=== PATIENT | male | born 1955 | race African-American/Black ===

== ENCOUNTER 2016-05-05 10:47 | Inpatient (IN) | payer OTHER ==
--- NOTE | 2016-05-05 10:56 | ER Document Report ---
ED Medical Screen (RME) - General Chief Complaint: Foot Pain Stated Complaint: FOOT PAIN Mode of Arrival: Wheelchair Information source: Patient Notes: Patient presents from the wound care center for possible amputation of his right great toe and possible fifth digit also. Patient is a diabetic, reports foot wound not etting any better. Denies pain. I have greeted and performed a rapid initial assessment of this patient. A comprehensive ED assessment and evaluation of the patient, analysis of test results and completion of the medical decision making process will be conducted by additional ED providers. TRAVEL OUTSIDE OF THE [place] IN LAST 30 DAYS: No - Related Data Allergies/Adverse Reactions: No Known Allergies Allergy (Verified 05/05/16 10:52) Past Medical History - Past Medical History Cardiac Medical History: Reports: Hx Congestive Heart Failure, Hx Coronary Artery Disease, Hx Hypercholesterolemia, Hx Hypertension Denies: Hx Heart Attack Pulmonary Medical History: Reports: Hx Asthma, Hx COPD, Hx Pneumonia - 2013, Hx Sleep Apnea Denies: Hx Bronchitis, Hx Tuberculosis Neurological Medical History: Denies: Hx Cerebrovascular Accident, Hx Seizures Endocrine Medical History: Reports: Hx Diabetes Mellitus Type 2 Renal/ Medical History: Reports: Hx End Stage Renal Disease, Hx Renal Insufficiency. Denies: Hx Hemodialysis GI Medical History: Reports: Hx Gastroesophageal Reflux Disease Musculoskeltal Medical History: Denies Hx Arthritis Skin Medical History: Reports Hx Cellulitis - LOWER EXTREMITY OSTEO LEFT FOOT Psychiatric Medical History: Denies: Hx Depression Past Surgical History: Reports: Hx Cardiac Catheterization - Cardiac catheterization few months ago showed mild CAD., Hx Orthopedic Surgery - Left big toe, knee, Hx Vascular Surgery - Left forearm AV fistula - Immunizations Hx Diphtheria, Pertussis, Tetanus Vaccination: Yes
[2016-05-05 11:23] LABS: HEMATOCRIT 32.7 % (37.9-51.0); HEMOGLOBIN 10.3 g/dL (13.5-17.0); HGB HCT DIFFERENCE -1.8; MEAN CORPUSCULAR HEMOGLOBIN 28.3 pg (27.0-33.4); MEAN CORPUSCULAR HGB CONC 31.5 g/dL (32.0-36.0); MEAN CORPUSCULAR VOLUME 90 fl (80-97); RED BLOOD COUNT 3.62 10^6/uL (4.35-5.55); RED CELL DISTRIBUTION WIDTH 16.4 % (11.5-14.0)
[2016-05-05 11:37] LABS: ALANINE AMINOTRANSFERASE 34 U/L (21-72); ALBUMIN 3.3 g/dL (3.5-5.0); ALKALINE PHOSPHATASE 97 U/L (38-126); ANION GAP 17 (5-19); ASPARTATE AMINO TRANSFERASE 39 U/L (17-59); BILIRUBIN,TOTAL 1.2 mg/dL (0.2-1.3); BLOOD UREA NITROGEN 52 mg/dL (7-20); CALCIUM 8.9 mg/dL (8.4-10.2); CARBON DIOXIDE 27 mmol/L (22-30); CHLORIDE 91 mmol/L (98-107); CREATININE RESULT 10.13 mg/dL (0.52-1.25); GLUCOSE 275 mg/dL (75-110); POTASSIUM 4.6 mmol/L (3.6-5.0); SODIUM 135.1 mmol/L (137-145); TOTAL PROTEIN 7.3 g/dL (6.3-8.2)
[2016-05-05 11:47] LABS: BAND NEUTROPHILS % (MANUAL) 1 % (3-5); BASOPHILS % (MANUAL) 0 % (0-2); EOSINOPHILS % (MANUAL) 0 % (0-6); LYMPHOCYTES % (MANUAL) 7 % (13-45); TOTAL CELLS COUNTED 100
[2016-05-05 11:49] LABS: ANISOCYTOSIS 1+; PLATELET CLUMPS PRESENT; TOXIC GRANULATION 1+; TOXIC VACUOLATION PRESENT
[2016-05-05 11:52] LABS: WHITE BLOOD COUNT 34.4 10^3/uL (4.0-10.5)
[2016-05-05] MEDS ORDERED: VANCOMYCIN HCL INJ 1000 MG VIAL IV ONE (12:14)
--- NOTE | 2016-05-05 13:22 | ER Document Report ---
ED Extremity Problem, Lower - General Chief Complaint: Foot Pain Stated Complaint: FOOT PAIN Time seen by provider: 11:15 Mode of Arrival: Wheelchair Information source: Patient TRAVEL OUTSIDE OF THE [place] IN LAST 30 DAYS: No - HPI Notes: Patient presents with report of right great toe pain and discomfort that he's had for the last month and a half with associated worsening discoloration and now an odor. The patient was seen at the wound clinic and sent over being told that he would need an amputation performed. The patient is alert he had a amputation performed on the left great toe in the past. Patient has been compliant with his dialysis. He states that for the last few days A been giving antibiotics during dialysis for the foot. The patient does question a low-grade fever. He is unaware of any recent trauma to the foot. Patient states at baseline he has very minimal sensation through all of his toes , and can feel nothing to the right distal toe itself. - Related Data Allergies/Adverse Reactions: No Known Allergies Allergy (Verified 05/05/16 10:52) Past Medical History - General Information source: Patient - Social History Smoking Status: Unknown if Ever Smoked Chew tobacco use (# tins/day): No Frequency of alcohol use: None Drug Abuse: None Family History: CAD, Hyperlipidemia, Hypertension Patient has suicidal ideation: No Patient has homicidal ideation: No - Past Medical History Cardiac Medical History: Reports: Hx Congestive Heart Failure, Hx Coronary Artery Disease, Hx Hypercholesterolemia, Hx Hypertension Denies: Hx Heart Attack Pulmonary Medical History: Reports: Hx Asthma, Hx COPD, Hx Pneumonia - 2014, Hx Sleep Apnea Denies: Hx Bronchitis, Hx Tuberculosis Neurological Medical History: Denies: Hx Cerebrovascular Accident, Hx Seizures Endocrine Medical History: Reports: Hx Diabetes Mellitus Type 2 Renal/ Medical History: Reports: Hx End Stage Renal Disease, Hx Renal Insufficiency. Denies: Hx Hemodialysis, Hx Peritoneal Dialysis GI Medical History: Reports: Hx Gastroesophageal Reflux Disease Musculoskeltal Medical History: Denies Hx Arthritis Skin Medical History: Reports Hx Cellulitis - LOWER EXTREMITY OSTEO LEFT FOOT Psychiatric Medical History: Denies: Hx Depression Past Surgical History: Reports: Hx Cardiac Catheterization - Cardiac catheterization few months ago showed mild CAD., Hx Orthopedic Surgery - Left big toe, knee, Hx Vascular Surgery - Left forearm AV fistula - Immunizations Hx Diphtheria, Pertussis, Tetanus Vaccination: Yes Hx Pneumococcal Vaccination: 01/19/12 Review of Systems - Review of Systems Notes: REVIEW OF SYSTEMS: CONSTITUTIONAL : Denies sweats. EENT: Denies eye, ear, throat, or mouth pain or symptoms. Denies nasal or sinus congestion or discharge. Denies throat, tongue, or mouth swelling or difficulty swallowing. CARDIOVASCULAR: Denies chest pain. Denies palpitations or racing or irregular heart beat. Denies ankle edema. RESPIRATORY: Denies cough, cold, or chest congestion. Denies shortness of breath, difficulty breathing, or wheezing. GASTROINTESTINAL: Denies abdominal pain or distention. Denies nausea, vomiting , or diarrhea. Denies blood in vomitus, stools, or per rectum. Denies black, tarry stools. Denies constipation. GENITOURINARY: Denies difficulty urinating, painful urination, burning, frequency, blood in urine, or discharge. MUSCULOSKELETAL: Denies back or neck pain or stiffness. SKIN: Right foot skin changes and erythema. HEMATOLOGIC : Denies easy bruising or bleeding. LYMPHATIC: Denies swollen, enlarged glands. NEUROLOGICAL: Denies confusion or altered mental status. Denies passing out or loss of consciousness. Denies dizziness or lightheadedness. Denies headache. Denies weakness or paralysis or loss of use of either side. Denies problems with gait or speech. Denies seizures. Patient reports chronic unchanged distal extremity numbness related to peripheral neuropathy. PSYCHIATRIC: Denies anxiety or stress. Denies depression, suicidal ideation, or homicidal ideation. ALL OTHER SYSTEMS REVIEWED AND NEGATIVE. Dictation was performed using [employer] voice recognition software Physical Exam - Vital signs Vitals: Temp Pulse Resp BP Pulse Ox 99.9 F 80 20 110/51 L 95 05/05/16 10:52 05/05/16 10:52 05/05/16 10:52 05/05/16 10:52 05/05/16 10:52 - Notes Notes: PHYSICAL EXAMINATION: GENERAL: Well-appearing, well-nourished and in no acute distress. HEAD: Atraumatic, normocephalic. EYES: Pupils equal round and reactive to light, extraocular movements intact, sclera anicteric, conjunctiva are normal. ENT: Nares patent, oropharynx clear without exudates. Moist mucous membranes. NECK: Normal range of motion, supple without lymphadenopathy LUNGS: Breath sounds clear to auscultation bilaterally and equal. No wheezes rales or rhonchi. HEART: Regular rate and rhythm without murmurs ABDOMEN: Soft, nontender, nondistended abdomen. No guarding, no rebound. No masses appreciated. Musculoskeletal: Normal range of motion, no pitting or edema. No cyanosis. NEUROLOGICAL: Cranial nerves grossly intact. Normal speech, normal gait. Normal motor exams. Patient has diminished sensation through all of the toes which he states is chronic. PSYCH: Normal mood, normal affect. SKIN: Patient has obvious gangrenous right great toe, more consistent with dry gangrene. He has no sensation to the great toe. There is some proximal erythema extending up the foot into the lower leg. There are some epidermal changes on the dorsum of the foot. Patient does have a very weak right DP pulse that is appreciated with bedside Doppler. There is also some skin breakdown along the lateral aspect of the fifth toe, but no evidence for infection there. There is diminished capillary refill in all toes appears 5-6 seconds. Dialysis AV shunt site left forearm appears appropriate without evidence for infection or breakdown. Course - Re-evaluation Re-evalutation: 05/05/16 13:23 Blood cultures were taken prior to the patient receiving IV vancomycin. Chest x-ray ordered for preoperative clearance and right foot x-ray ordered for evaluation of possible osteomyelitis versus gas in the tissues. Discussion was undertaken with Dr. Ace who agreed to see the patient for further evaluation and admission for possible amputation. - Vital Signs Vital signs: Temp Pulse Resp BP Pulse Ox 99.9 F 80 20 110/51 L 95 05/05/16 10:52 05/05/16 10:52 05/05/16 10:52 05/05/16 10:52 05/05/16 10:52 - Laboratory Result Diagrams: 05/05/16 11:05 05/05/16 11:05 Laboratory results interpreted by me: 05/05/16 05/05/16 11:05 11:05 WBC 34.4 H* RBC 3.62 L Hgb 10.3 L Hct 32.7 L MCHC 31.5 L RDW 16.4 H Seg Neuts % (Manual) 88 H Band Neutrophils % 1 L Lymphocytes % (Manual) 7 L Abs Neuts (Manual) 30.6 H Sodium 135.1 L Chloride 91 L BUN 52 H Creatinine 10.13 H Est GFR ( Amer) 6 L Est GFR (Non-Af Amer) 5 L Glucose 275 H Albumin 3.3 L Critical Care Note - Critical Care Note Total time excluding time spent on procedures (mins): 32 - not counting billable procedures Discharge - Discharge Clinical Impression: Gangrene, ESRD (end stage renal disease), Diabetes Disposition: ADMITTED INPATIENT Admitting Provider: Hospitalist Unit Admitted: [facility]
[2016-05-05] MEDS ORDERED: DEXTROSE 40% GEL 15 GM TUBE PO PRN ×2 (14:38)
[2016-05-05] MEDS ORDERED: INSULIN LISPRO 100 UNIT/ML 3 ML VIAL SUBCUT PRN (14:38)
[2016-05-05] MEDS ORDERED: GLUCAGON,HUMAN RECOMB 1 MG INJ IM PRN (14:38)
[2016-05-05] MEDS ORDERED: DEXTROSE 50%-WATER 25 GM/50 ML DISP.SYRIN IV PRN ×2 (14:38)
[2016-05-05] MEDS ORDERED: ONDANSETRON HCL INJ/PF 4 MG/2 ML SDV IV PRN (14:39)
[2016-05-05] MEDS ORDERED: NORMAL SALINE 1000 ML 1,000 ML IV PRN (14:39)
[2016-05-05] MEDS ORDERED: HYDRALAZINE HCL INJ/PF 20 MG/1 ML SDV IV PRN (14:39)
[2016-05-05 15:07] LABS: PROTHROMBIN TIME 16.9 SEC (11.4-15.4)
[2016-05-05 15:08] LABS: PARTIAL THROMBOPLASTIN TIME 44.9 SEC (23.5-35.8)
--- NOTE | 2016-05-05 17:37 | PDOC H&P ---
History of Present Illness Admission Date/PCP: 05/05/16 14:39 DIYA LOONEY MD Patient complains of: Right toe infection History of Present Illness: DIANELYS MARTINEZ is a 60 year old male with past medical history of end-stage renal disease, diabetes, hypertension, CHF that was sent from the wound clinic by Dr. Lake for right first toe infection. Patient has a history of peripheral vascular disease and has had prior left first toe amputation. He also states that he has an area on his right fifth toe and wonders if this needs anything done as well. I have seen him in conjunction with Dr. Etienne have discussed the case with the patient together. Dr. Etienne is going to take patient to the operating room for amputation of the right first toe and debridement of the right fifth toe. Past Medical History Cardiac Medical History: Reports: Congestive Heart Failure - Diastolic, Coronary Artery Disease, Hyperlipidema, Hypertension Denies: Myocardial Infarction Pulmonary Medical History: Reports: Asthma, Chronic Obstructive Pulmonary Disease (COPD), Pneumonia - 2014, Sleep Apnea Denies: Bronchitis, Tuberculosis Neurological Medical History: Denies: Seizures Endocrine Medical History: Reports: Diabetes Mellitus Type 2 Renal/ Medical History: Reports: End Stage Renal Disease GI Medical History: Reports: Gastroesophageal Reflux Disease Musculoskeltal Medical History: Denies: Arthritis Psychiatric Medical History: Denies: Depression Hematology: Denies: Anemia Past Surgical History Past Surgical History: Reports: Cardiac Catheterization - Cardiac catheterization few months ago showed mild CAD., Orthopedic Surgery - Left big toe, knee, Vascular Surgery - Left forearm AV fistula Social History Information Source: Patient Smoking Status: Unknown if Ever Smoked Frequency of Alcohol Use: None Hx Recreational Drug Use: No Hx Prescription Drug Abuse: No - Advance Directive Resuscitation Status: Full Code Family History Family History: CAD, Hyperlipidemia, Hypertension Parental Family History Reviewed: Yes Children Family History Reviewed: Yes Sibling(s) Family History Reviewed.: Yes Medication/Allergy Home Medications: Amlodipine Besylate [Norvasc 10 mg Tablet] 10 mg PO DAILY 05/05/16 Aspirin [Aspirin 81 mg Chewable Tablet] 81 mg PO DAILY 05/05/16 Brimonidine Tartrate/Timolol [Combigan 0.2%-0.5% Eye Drops] 5 ml OD BID Calcium Carbonate [Tums Chewable 500 mg Tab.chew] 1,000 mg PO DAILY 05/05/16 Carvedilol [Coreg 12.5 mg Tablet] 12.5 mg PO Q12 05/05/16 Cetirizine HCl [Zyrtec 10 mg Tablet] 1 tab PO QHS 05/05/16 Cholecalciferol (Vitamin D3) [Vitamin D3 1000 Unit Tablet] 1,000 unit PO BID Clonidine HCl [Catapres 0.2 mg Tablet] 0.2 mg PO Q12 05/05/16 Docusate Sodium [Colace 100 mg Capsule] 200 mg PO DAILY 05/05/16 Folic Acid/Vitamin B Comp W-C [Nephrocaps Multiple Vitamin Capsule] 1 cap PO DAILY 05/05/16 Furosemide [Lasix] 40 mg PO Q8 05/05/16 Hydralazine HCl [Apresoline 25 mg Tablet] 25 mg PO Q8 05/05/16 Insulin Glargine,Hum.rec.anlog [Lantus Insulin 100 Unit/1 ml 10 ml] 35 unit SUBCUT QHS 05/05/16 Latanoprost [Xalatan 0.005% Oph Soln 2.5 ml] 1 drop OD QHS 05/05/16 Metolazone [Zaroxolyn 5 Mg Tablet] 5 mg PO DAILY 05/05/16 Multivitamin [Tab-A-Jose] 1 each PO DAILY 05/05/16 Sevelamer Carbonate [Renvela] 1,600 mg PO ASDIR 05/05/16 Sevelamer Carbonate [Renvela] 2,400 mg PO MEALS 05/05/16 Tramadol HCl [Ultram 50 mg Tablet] 50 mg PO BIDP PRN 05/05/16 Allergies/Adverse Reactions: No Known Allergies Allergy (Verified 05/05/16 10:52) Review of Systems Constitutional: ABSENT: chills, fever(s), headache(s), weight gain, weight loss Eyes: ABSENT: visual disturbances Ears: ABSENT: hearing changes Cardiovascular: ABSENT: chest pain, dyspnea on exertion, edema, orthropnea, palpitations Respiratory: ABSENT: cough, hemoptysis Gastrointestinal: ABSENT: abdominal pain, constipation, diarrhea, hematemesis, hematochezia, nausea, vomiting Genitourinary: ABSENT: dysuria, hematuria Musculoskeletal: PRESENT: other - Swelling and discoloration of right first toe Integumentary: PRESENT: wounds - Black discoloration of right first toe, ulcer on lateral right fifth toe. ABSENT: rash Neurological: ABSENT: abnormal gait, abnormal speech, confusion, dizziness, focal weakness, syncope Psychiatric: ABSENT: anxiety, depression, homidical ideation, suicidal ideation Endocrine: ABSENT: cold intolerance, heat intolerance, polydipsia, polyuria Hematologic/Lymphatic: ABSENT: easy bleeding, easy bruising Physical Exam Vital Signs: Temp Pulse Resp BP Pulse Ox 99.9 F 80 20 110/51 L 95 05/05/16 10:52 05/05/16 10:52 05/05/16 10:52 05/05/16 10:52 05/05/16 10:52 PHYSICAL EXAM: GENERAL: Appears well, no acute distress HEENT: Normocephalic, no scleral icterus, conjunctiva clear, EOEM intact, PERRLA , moist mucous membranes NECK: trachea midline, no thyromegally RESPIRATORY: Clear to auscultation, no wheezes/rhonchi CARDIAC: Regular rate and rhythm, no murmur/philip/rub ABDOMEN: Soft, no distension, no tenderness, no guarding, normal bowel sounds, negative Karimi sign EXTREMITIES: No edema, cyanosis, clubbing MUSCULOSKELETAL: No joint swelling or deformity VASCULAR: normal peripheral pulses. AV fistula left arm NEUROLOGIC: Alert, oriented to person/place/time, normal speech, cranial nerves grossly intact, 5/5 strength in all extremities, tactile sensation intact in all extremities SKIN: Gangrene of right first toe with minimal surrounding erythema, subcentimeter ulcer of lateral right fifth toe with dark eschar no significant surrounding erythema PSYCHIATRIC: Normal mood, normal affect Results Impressions: Chest X-Ray 05/05/16 12:13 IMPRESSION: NO SIGNIFICANT RADIOGRAPHIC FINDING IN THE CHEST. Foot X-Ray 05/05/16 12:14 IMPRESSION: Cellulitis. No evidence of osteomyelitis. Assessment & Plan - Diagnosis (1) Sepsis Is this a current diagnosis for this admission?: YesPlan: Secondary to gangrene of right first toe. Start patient on IV Rocephin and IV vancomycin. 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 Looney to follow for hemodialysis. Patient is currently on hemodialysis at the time of admission. (4) Diabetes Is this a current diagnosis for this admission?: YesPlan: Hold scheduled insulin while nothing by mouth. Sliding scale insulin coverage for now. (5) Anemia Is this a current diagnosis for this admission?: YesPlan: Likely related to end-stage renal disease. (6) CHF (congestive heart failure) Qualifiers: Congestive heart failure type: diastolic Congestive heart failure chronicity: chronic Qualified Code(s): I50.32 - Chronic diastolic ( congestive) heart failure Is this a current diagnosis for this admission?: YesPlan: Echocardiogram from 01/01/2016 showed normal EF, mild concentric LVH, grade 2/4 diastolic dysfunction, moderate pulmonary hypertension, no significant valvular disease. Volume status to me manage with hemodialysis. Continue Coreg 12.5 mg twice daily. (7) Hypertension Qualifiers: Hypertension type: essential hypertension Qualified Code(s): I10 - Essential (primary) hypertension Is this a current diagnosis for this admission?: YesPlan: Continue clonidine to prevent rebound hypertension. Hold Norvasc, Coreg, hydralazine for now secondary to low blood pressure. When necessary IV hydralazine. (8) Glaucoma Is this a current diagnosis for this admission?: Yes - Time Time Spent: Greater than 70 Minutes - Inpatient Certification Medical Necessity: Need for IV Antibiotics, Need for Surgery
[2016-05-05] MEDS ORDERED: VANCOMYCIN HCL 1,000 MG in DEXTROSE 5%-WATER 250 ML IV ONE ×2 (18:00→22:45)
[2016-05-05] MEDS ORDERED: (PENDING PHARMACY ID) (Brimonidine Tartrate/Timolol [Combigan 0.2%-0.5% Eye Drops] 5 ML) OD SCH (18:00)
--- NOTE | 2016-05-05 18:30 | PDOC CONSULTATION ---
Consultation Consult Date: 05/05/16 Attending physician:: CORKY ACE Consult reason:: I was asked by Dr. Ace to see the patient to manage and supervise dialysis while here in the hospital. History of Present Illness Admission Date/PCP: 05/05/16 14:39 DIYA LOONEY MD History of Present Illness: DIANELYS MARTINEZ is a 60 year old male with past medical history of end-stage renal disease, diabetes, hypertension, CHF that was sent from the wound clinic by Dr. Lake for right first toe infection. Patient has a history of peripheral vascular disease and has had prior left first toe amputation. He also states that he has an area on his right fifth toe and wonders if this needs anything done as well. Dr. Ace have seen him in conjunction with Dr. Etienne and discussed the case with the patient together. Dr. Etienne is going to take patient to the operating room for amputation of the right first toe and debridement of the right fifth toe. According to the patient he has been having this right big toe ulcer for the past month but did not inform anybody nor seek medical attention. He told me he thought that he could do something to it to make it better not requiring medical attention. Currently his right big toe is gangrenous, black with follow smell. His right leg is also red and warm. So today I'm seeing the patient during dialysis treatment which he is tolerating very well. His blood pressure was initially low but currently within acceptable limits. He will be going to the operating room for above procedures. Past Medical History Cardiac Medical History: Reports: CHF-Diastolic, Coronary Artery Disease, Hyperlipidemia, Other - History of pericarditis in December 2015 treated at [facility] Pulmonary Medical History: Reports: Asthma, Chronic Obstructive Pulmonary Disease (COPD), Pneumonia - 2013, Sleep Apnea Endocrine Medical History: Reports: Diabetes Mellitus Type 2 Renal/ Medical History: Reports: End Stage Renal Disease, Hyperphosphatemia, Renal Osteodystropy GI Medical History: Reports: Gastroesophageal Reflux Disease Hematology Medical History: Reports Anemia of Chronic Kidney Disease Past Surgical History Past Surgical History: Reports: Cardiac Catheterization - Cardiac catheterization few months ago showed mild CAD., Dialysis Access Surgery AVF, Orthopedic Surgery - Left big toe amputation, knee arthroscopy, Other - Bilateral cataract extraction Social History Lives with: Alone Smoking Status: Unknown if Ever Smoked Frequency of Alcohol Use: None Hx Recreational Drug Use: No Hx Prescription Drug Abuse: No - Advance Directive Resuscitation Status: Full Code Family History Family History: End Stage Renal Disease - Brother was also on dialysis. Parental Family History Reviewed: No Children Family History Reviewed: NA Sibling(s) Family History Reviewed.: Yes Medication/Allergy Home Medications: Amlodipine Besylate [Norvasc 10 mg Tablet] 10 mg PO DAILY 05/05/16 Aspirin [Aspirin 81 mg Chewable Tablet] 81 mg PO DAILY 05/05/16 Brimonidine Tartrate/Timolol [Combigan 0.2%-0.5% Eye Drops] 5 ml OD BID Calcium Carbonate [Tums Chewable 500 mg Tab.chew] 1,000 mg PO DAILY 05/05/16 Carvedilol [Coreg 12.5 mg Tablet] 12.5 mg PO Q12 05/05/16 Cetirizine HCl [Zyrtec 10 mg Tablet] 1 tab PO QHS 05/05/16 Cholecalciferol (Vitamin D3) [Vitamin D3 1000 Unit Tablet] 1,000 unit PO BID Clonidine HCl [Catapres 0.2 mg Tablet] 0.2 mg PO Q12 05/05/16 Docusate Sodium [Colace 100 mg Capsule] 200 mg PO DAILY 05/05/16 Folic Acid/Vitamin B Comp W-C [Nephrocaps Multiple Vitamin Capsule] 1 cap PO DAILY 05/05/16 Furosemide [Lasix] 40 mg PO Q8 05/05/16 Hydralazine HCl [Apresoline 25 mg Tablet] 25 mg PO Q8 05/05/16 Insulin Glargine,Hum.rec.anlog [Lantus Insulin 100 Unit/1 ml 10 ml] 35 unit SUBCUT QHS 05/05/16 Latanoprost [Xalatan 0.005% Oph Soln 2.5 ml] 1 drop OD QHS 05/05/16 Metolazone [Zaroxolyn 5 Mg Tablet] 5 mg PO DAILY 05/05/16 Multivitamin [Tab-A-Jose] 1 each PO DAILY 05/05/16 Sevelamer Carbonate [Renvela] 1,600 mg PO ASDIR 05/05/16 Sevelamer Carbonate [Renvela] 2,400 mg PO MEALS 05/05/16 Tramadol HCl [Ultram 50 mg Tablet] 50 mg PO BIDP PRN 05/05/16 Allergies/Adverse Reactions: No Known Allergies Allergy (Verified 05/05/16 10:52) Review of Systems All systems: reviewed and no additional remarkable complaints except as stated Review of Systems: Constitutional: ABSENT: fatigue, headache(s), weight gain, weight loss; admits intermittent fever and chills for the last 2 weeks but more prominent about couple days ago Eyes: ABSENT: visual disturbances Ears: ABSENT: hearing changes Cardiovascular: ABSENT: chest pain, dyspnea on exertion, edema, orthropnea, palpitations Respiratory: ABSENT: cough, dyspnea, hemoptysis Gastrointestinal: ABSENT: abdominal pain, constipation, diarrhea, hematemesis, hematochezia, nausea, vomiting Genitourinary: ABSENT: dysuria, hematuria Musculoskeletal: ABSENT: joint swelling Integumentary: ABSENT: rash, wounds; positive gangrene in the right big toe and is starting gangrene in the left fifth toe Neurological: ABSENT: abnormal gait, abnormal speech, confusion, dizziness, focal weakness, numbness, syncope Psychiatric: ABSENT: anxiety, depression Endocrine: ABSENT: cold intolerance, heat intolerance, polydipsia, polyuria Hematologic/Lymphatic: ABSENT: easy bleeding, easy bruising, lymphadenopathy Physical Exam Vital Signs: Temp Pulse Resp BP Pulse Ox 99.9 F 80 20 110/51 L 95 05/05/16 10:52 05/05/16 10:52 05/05/16 10:52 05/05/16 10:52 05/05/16 10:52 Intake & Output 05/04/16 05/05/16 05/06/16 06:59 06:59 06:59 Output Total 1000 Balance -1000 Vitals while was seeing him on dialysis: Blood pressure 150/47, heart rate of 69 , blood flow rate of 400 mL per minute, dialysate flow rate of 600 mL per minute. Exam: General appearance: no acute distress, cooperative, well-developed, well- nourished Head exam: PRESENT: atraumatic, normocephalic Eye exam: PRESENT: Conjunctiva [place], EOMI, PERRLA. ABSENT: conjunctival injection, scleral icterus Mouth exam: PRESENT: moist, neck supple, tongue midline Neck exam: PRESENT: full ROM. ABSENT: carotid bruit, JVD, lymphadenopathy, thyromegaly Respiratory exam: PRESENT: clear to auscultation bilaterally. ABSENT: rales, rhonchi, stridor, wheezes Cardiovascular exam: PRESENT: RRR, +S1, +S2. ABSENT: systolic murmur Pulses: PRESENT: normal radial pulses, normal dorsalis pedis pulses GI/Abdominal exam: PRESENT: normal bowel sounds, soft. ABSENT: guarding, mass, tenderness Rectal exam: deferred Extremities exam: PRESENT: full ROM. ABSENT: calf tenderness, pedal edema Musculoskeletal: PRESENT: full ROM. ABSENT: deformity Neurological exam: PRESENT: alert, Awake, Oriented to person, Oriented to place , Oriented to time, reflexes normal, CN II-XII grossly intact. ABSENT: motor sensory deficit Psychiatric exam: PRESENT: appropriate affect, normal mood. ABSENT: homicidal ideation, suicidal ideation Skin exam: PRESENT: intact, dry, warm. His right big toe was black and gangrenous with foul smell. There is also a small area on his right fifth toe that is also turning into black gangrene as well. His right leg is warm and mildly erythematous. ABSENT: rash Results Laboratory Results: Laboratory 05/05/16 05/05/16 05/05/16 11:05 11:05 11:05 WBC 34.4 H* RBC 3.62 L Hgb 10.3 L Hct 32.7 L MCV 90 MCH 28.3 MCHC 31.5 L RDW 16.4 H Plt Count 213 Total Counted 100 Seg Neutrophils % Not Reportable Seg Neuts % (Manual) 88 H Band Neutrophils % 1 L Lymphocytes % Not Reportable Lymphocytes % (Manual) 7 L Monocytes % Not Reportable Monocytes % (Manual) 4 Eosinophils % Not Reportable Eosinophils % (Manual) 0 Basophils % Not Reportable Basophils % (Manual) 0 Absolute Neutrophils Not Reportable Abs Neuts (Manual) 30.6 H Absolute Lymphocytes Not Reportable Abs Lymphs (Manual) 2.4 Absolute Monocytes Not Reportable Abs Monocytes (Manual) 1.4 Absolute Eosinophils Not Reportable Absolute Eos (Manual) 0.0 Absolute Basophils Not Reportable Abs Basophils (Manual) 0.0 Toxic Granulation 1+ Toxic Vacuolation PRESENT Clumped Platelets PRESENT Platelet Comment ADEQUATE Anisocytosis 1+ PT INR APTT Sodium 135.1 L Potassium 4.6 Chloride 91 L Carbon Dioxide 27 Anion Gap 17 BUN 52 H Creatinine 10.13 H Est GFR ( Amer) 6 L Est GFR (Non-Af Amer) 5 L Glucose 275 H Calcium 8.9 Total Bilirubin 1.2 Direct Bilirubin 0.0 AST 39 ALT 34 Alkaline Phosphatase 97 C-Reactive Protein 504.7 H Total Protein 7.3 Albumin 3.3 L 05/05/16 11:05 WBC RBC Hgb Hct MCV MCH MCHC RDW Plt Count Total Counted Seg Neutrophils % Seg Neuts % (Manual) Band Neutrophils % Lymphocytes % Lymphocytes % (Manual) Monocytes % Monocytes % (Manual) Eosinophils % Eosinophils % (Manual) Basophils % Basophils % (Manual) Absolute Neutrophils Abs Neuts (Manual) Absolute Lymphocytes Abs Lymphs (Manual) Absolute Monocytes Abs Monocytes (Manual) Absolute Eosinophils Absolute Eos (Manual) Absolute Basophils Abs Basophils (Manual) Toxic Granulation Toxic Vacuolation Clumped Platelets Platelet Comment Anisocytosis PT 16.9 H INR 1.32 APTT 44.9 H Sodium Potassium Chloride Carbon Dioxide Anion Gap BUN Creatinine Est GFR ( Amer) Est GFR (Non-Af Amer) Glucose Calcium Total Bilirubin Direct Bilirubin AST ALT Alkaline Phosphatase C-Reactive Protein Total Protein Albumin Impressions: Chest X-Ray 05/05/16 12:13 IMPRESSION: NO SIGNIFICANT RADIOGRAPHIC FINDING IN THE CHEST. Foot X-Ray 05/05/16 12:14 IMPRESSION: Cellulitis. No evidence of osteomyelitis. 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 Penny is, vascular surgeon to be done tonight. (2) Sepsis Is this a current diagnosis for this admission?: YesPlan: Due to #1. He was given IV vancomycin and ceftriaxone. Initial one culture done at [facility] 2 days ago showed Enterobacter sensitive to ceftriaxone. Management per primary service. (3) ESRD (end stage renal disease) Is this a current diagnosis for this admission?: YesPlan: We will do dialysis today for 3 hours, using the patient's AV fistula, with 2 potassium bath, blood flow rate of 400 mL per minute, dialysate flow rate of 600 mL per minute, ultrafiltration 1 L, no heparin and no Procrit during dialysis. Patient is being monitored by our dialysis nurse on dialysis. We will continue hemodialysis support while here in the hospital. (4) Anemia in chronic kidney disease (CKD) Is this a current diagnosis for this admission?: YesPlan: Procrit not required today. He will give it as needed. (5) Diabetes Qualifiers: Diabetes mellitus type: type 2 Is this a current diagnosis for this admission?: Yes (6) Hypertension Qualifiers: Hypertension type: essential hypertension Qualified Code(s): I10 - Essential (primary) hypertension Is this a current diagnosis for this admission?: YesPlan: Initially hypotensive but currently blood pressures during dialysis within acceptable limits. Monitor blood pressure and resume blood pressure medication as needed. - Notes Notes: Thank you very much for this consultation and I will follow the patient with you while here in the hospital. - Time Time Spent: 50 to 70 Minutes
[2016-05-05] MEDS ORDERED: BUPIVACAINE HCL 0.25 % INJ/PF (2.5 MG/1 ML) 30 ML VIAL ONE (19:21)
[2016-05-05] MEDS ORDERED: LIDOCAINE 0.5% INJ-PF (5 MG/ML) 50 ML SDV ONE (19:22)
[2016-05-05] MEDS ORDERED: FENTANYL CITRATE INJ/PF 100 MCG/2 ML AMPUL ONE ×2 (19:47)
[2016-05-05] MEDS ORDERED: MIDAZOLAM 2 MG/2 ML INJ ONE ×2 (19:48)
[2016-05-05] MEDS ORDERED: PROPOFOL INJ 200 MG/20 ML VIAL IV ONE (19:48)
[2016-05-05] MEDS ORDERED: DIPHENHYDRAMINE HCL 50 MG/ML VIAL IV PRN (20:45)
[2016-05-05] MEDS ORDERED: PROMETHAZINE HCL INJ 25 MG/1 ML VIAL IV PRN ×2 (20:45)
[2016-05-05] MEDS ORDERED: MORPHINE SULFATE 10 MG/ML INJ IV PRN (20:45)
[2016-05-05] MEDS ORDERED: FENTANYL CITRATE INJ/PF 100 MCG/2 ML AMPUL IV PRN ×3 (20:45)
[2016-05-05] MEDS ORDERED: MEPERIDINE HCL/PF INJ 25 MG/1 ML DISP.SYRIN IV PRN (20:45)
--- NOTE | 2016-05-05 21:08 | Operative Report ---
Operative Report DATE OF SURGERY: 05/05/16 PREOPERATIVE DIAGNOSIS: 1. Wet gangrene of the right great toe. 2. Ischemic ulcer lateral anterior aspect right fifth toe. 3. Peripheral vascular disease. 4. End-stage renal failure. 5. Diabetes mellitus OPERATION: Same SURGEON: KENDRA LEAVITT ANESTHESIA: LMAC TISSUE REMOVED OR ALTERED: Right great toe, tissue COMPLICATIONS: None ESTIMATED BLOOD LOSS: scant INTRAOPERATIVE FINDINGS: See below PROCEDURE: The patient was taken to the preoperative holding area the main operating room were IV sedation and conscious sedation as well as LMAC anesthesia was induced. The right foot was prepped sterile fashion. Surgical planned surgical timeout were conducted. The right great toe was ischemic was ischemic, foul-smelling. It was amputated at its base. The metatarsal head first was removed with Frankel. There was absolutely no bleeding from the skin, subcutaneous tissue, fascia or bone. Slowly healing skin on the dorsal surface of the foot, as well as the dorsal surface of the right fifth toe which had an ischemic ulcer anteriorly removed sharply with scissors. A counterincision was made over the mid dorsum of the foot and a large Sylvie drain placed in the loop like fashion undermining the skin flap from distal to proximal ; the smell was strong but the purulent discharge was minimal. Wounds were irrigated dressings included dry 4 x 4's Kerlix applied Impression is necrotic great toe, status post amputation; ischemic right fifth toe ulcer left intact because it was dry. Severe peripheral vascular disease based on clinical absence of bleeding.
[2016-05-05] MEDS: ACETAMINOPHEN 325 MG TABLET PO PRN (22:14)
[2016-05-05] MEDS: CEFTRIAXONE 1 GM/D5W RTU 1 GM/50 ML RTUPB IV SCH (22:15)
[2016-05-05] MEDS ORDERED: VANCOMYCIN HCL INJ 1000 MG VIAL ONE (22:23)
[2016-05-05] MEDS: FUROSEMIDE 40 MG TABLET PO SCH (23:38)
[2016-05-05] MEDS: CETIRIZINE 10 MG TABLET PO SCH (23:39)
[2016-05-05] MEDS: CLONIDINE HCL 0.2 MG TABLET PO SCH (23:39)
[2016-05-05] MEDS: HEPARIN SOD (PORCINE) 5,000 UNIT/ML 1 ML SYRINGE SUBCUT SCH (23:47)
[2016-05-05] MEDS: CHOLECALCIFEROL (D3) 1,000 UNIT TABLET PO SCH (23:47)
[2016-05-05] MEDS: LATANOPROST 0.005% OPH SOLN 2.5 ML OD SCH (23:47)
[2016-05-06] MEDS: HEPARIN SOD (PORCINE) 5,000 UNIT/ML 1 ML SYRINGE SUBCUT SCH ×3 (05:48→22:54)
[2016-05-06] MEDS: FUROSEMIDE 40 MG TABLET PO SCH ×3 (05:48→22:54)
[2016-05-06 06:35] LABS: HEMATOCRIT 33.9 % (37.9-51.0); HEMOGLOBIN 10.6 g/dL (13.5-17.0); HGB HCT DIFFERENCE -2.1; MEAN CORPUSCULAR HEMOGLOBIN 28.2 pg (27.0-33.4); MEAN CORPUSCULAR HGB CONC 31.4 g/dL (32.0-36.0); MEAN CORPUSCULAR VOLUME 90 fl (80-97); RED BLOOD COUNT 3.78 10^6/uL (4.35-5.55); RED CELL DISTRIBUTION WIDTH 16.6 % (11.5-14.0); WHITE BLOOD COUNT 27.9 10^3/uL (4.0-10.5)
[2016-05-06 06:44] LABS: ANION GAP 14 (5-19); BLOOD UREA NITROGEN 33 mg/dL (7-20); CALCIUM 9.3 mg/dL (8.4-10.2); CARBON DIOXIDE 32 mmol/L (22-30); CHLORIDE 94 mmol/L (98-107); CREATININE RESULT 7.13 mg/dL (0.52-1.25); GLUCOSE 126 mg/dL (75-110); POTASSIUM 3.7 mmol/L (3.6-5.0); SODIUM 139.7 mmol/L (137-145)
[2016-05-06 07:07] LABS: BASOPHILS % (MANUAL) 0 % (0-2); EOSINOPHILS % (MANUAL) 0 % (0-6); LYMPHOCYTES % (MANUAL) 3 % (13-45); TOTAL CELLS COUNTED 100
[2016-05-06 07:09] LABS: ANISOCYTOSIS 1+; OVALOCYTES SLIGHT; POIKILOCYTOSIS SLIGHT; TOXIC GRANULATION SLIGHT; TOXIC VACUOLATION PRESENT
[2016-05-06] MEDS ORDERED: (PENDING PHARMACY ID) (Sevelamer Carbonate [Renvela] 2,400 MG) PO SCH (08:00)
[2016-05-06] MEDS: FOLIC ACID/VITAMIN B COMP W-C CAPSULE PO SCH (10:57)
[2016-05-06] MEDS: CHOLECALCIFEROL (D3) 1,000 UNIT TABLET PO SCH ×2 (10:57→18:44)
[2016-05-06] MEDS: CLONIDINE HCL 0.2 MG TABLET PO SCH ×2 (10:58→22:54)
[2016-05-06] MEDS: DOCUSATE SODIUM 100 MG CAPSULE PO SCH (10:58)
[2016-05-06] MEDS: METOLAZONE 5 MG TABLET PO SCH (10:59)
[2016-05-06] MEDS: CALCIUM CARBONATE 500 MG TAB.CHEW PO SCH (10:59)
[2016-05-06] MEDS: ASPIRIN 81 MG TABLET, CHEWABLE PO SCH (10:59)
[2016-05-06] MEDS: SEVELAMER HCL 400 MG TABLET PO SCH ×3 (11:00→18:43)
[2016-05-06] MEDS: ACETAMINOPHEN 325 MG TABLET PO PRN ×2 (11:07→22:53)
[2016-05-06 12:45] LABS: PATH REVIEW PATHOLOGIST REVIEWED
--- NOTE | 2016-05-06 13:34 | PDOC PROGRESS REPORT ---
Subjective Progress Note for:: 05/06/16 Subjective:: Patient seen on morning rounds. Presently resting comfortably in bed. He is eating his breakfast. He denies any nausea, vomiting, or abdominal pain. He denies any shortness breath, cough, or dyspnea. He denies any chest pain, dizziness, or lightheadedness. He denies any pain in his right foot. He is postop day 1 from right great toe amputation secondary to gangrene. Denies any pain at the present time. He denies any fever or chills. He has no other complaints the present time. Physical Exam Vital Signs: Temp Pulse Resp BP Pulse Ox 100.2 F 86 22 H 142/85 H 98 05/06/16 11:37 05/06/16 11:37 05/06/16 11:37 05/06/16 11:37 05/06/16 11:37 Intake & Output 05/05/16 05/06/16 05/07/16 06:59 06:59 06:59 Intake Total 830 418 Output Total 2005 0 Balance -1175 418 Weight 101.8 kg General appearance: PRESENT: no acute distress, well-developed, well-nourished Head exam: PRESENT: atraumatic, normocephalic Eye exam: PRESENT: conjunctiva pink, EOMI, PERRLA. ABSENT: scleral icterus Ear exam: PRESENT: normal external ear exam Mouth exam: PRESENT: moist, tongue midline Neck exam: ABSENT: carotid bruit, JVD, lymphadenopathy, thyromegaly Respiratory exam: PRESENT: clear to auscultation césar. ABSENT: rales, rhonchi, wheezes Cardiovascular exam: PRESENT: RRR. ABSENT: diastolic murmur, rubs, systolic murmur Pulses: PRESENT: normal carotid pulses, normal radial pulses Vascular exam: PRESENT: normal capillary refill GI/Abdominal exam: PRESENT: normal bowel sounds, soft. ABSENT: distended, guarding, mass, organolmegaly, rebound, tenderness Rectal exam: PRESENT: deferred Extremities exam: PRESENT: tenderness - right foot surgical incision Musculoskeletal exam: PRESENT: ambulatory Neurological exam: PRESENT: alert, awake, oriented to person, oriented to place , oriented to time, oriented to situation, CN II-XII grossly intact. ABSENT: motor sensory deficit Psychiatric exam: PRESENT: normal mood Skin exam: PRESENT: warm - right foot covered with surgical dressing, other Results Laboratory Results: 05/06/16 05:28 05/06/16 05:28 05/06/16 05/06/16 05:28 05:28 WBC 27.9 H RBC 3.78 L Hgb 10.6 L Hct 33.9 L MCV 90 MCH 28.2 MCHC 31.4 L RDW 16.6 H Plt Count 201 Seg Neutrophils % Not Reportable Lymphocytes % Not Reportable Monocytes % Not Reportable Eosinophils % Not Reportable Basophils % Not Reportable Absolute Neutrophils Not Reportable Absolute Lymphocytes Not Reportable Absolute Monocytes Not Reportable Absolute Eosinophils Not Reportable Absolute Basophils Not Reportable Sodium 139.7 Potassium 3.7 Chloride 94 L Carbon Dioxide 32 H Anion Gap 14 BUN 33 H Creatinine 7.13 H Est GFR ( Amer) 9 L Est GFR (Non-Af Amer) 8 L Glucose 126 H Calcium 9.3 Impressions: Chest X-Ray 05/05/16 12:13 IMPRESSION: NO SIGNIFICANT RADIOGRAPHIC FINDING IN THE CHEST. Foot X-Ray 05/05/16 12:14 IMPRESSION: Cellulitis. No evidence of osteomyelitis. Assessment & Plan - Diagnosis (1) Sepsis Qualifiers: Sepsis type: sepsis due to unspecified organism Qualified Code(s): A41.9 - Sepsis, unspecified organism Is this a current diagnosis for this admission?: YesPlan: Blood cultures 2 show no growth presently. Wound culture has grown group B Streptococcus, and gram-negative rods. He is on IV antibiotic therapy. He is no longer tachycardic or hypotensive. He has had no further fevers. His white count is trending downward. We will continue current antibiotics until cultures and sensitivity are complete (2) PVD (peripheral vascular disease) Is this a current diagnosis for this admission?: YesPlan: HOLDEN of the right lower extremity is pending. We'll continue current medications. (3) Diabetes Qualifiers: Diabetes mellitus type: type 2 Diabetes mellitus complication status: with kidney complications Diabetes mellitus complication detail: with chronic kidney disease Diabetes mellitus nursing home insulin use: with exec. creative director use Chronic kidney disease stage: on chronic dialysis Qualified Code(s): E11.22 - Type 2 diabetes mellitus with diabetic chronic kidney disease ; N18.6 - End stage renal disease; Z79.4 - senior controls analyst (current) use of insulin; Z99.2 - Dependence on renal dialysis Is this a current diagnosis for this admission?: YesPlan: Continue current medications and sliding scale coverage (4) Gangrene Is this a current diagnosis for this admission?: YesPlan: This is been removed surgically. May need MRI of the foot to assess for possible osteomyelitis (5) ESRD (end stage renal disease) Is this a current diagnosis for this admission?: YesPlan: Dialysis orders per nephrology (6) CHF (congestive heart failure) Qualifiers: Congestive heart failure type: diastolic Congestive heart failure chronicity: chronic Qualified Code(s): I50.32 - Chronic diastolic ( congestive) heart failure Is this a current diagnosis for this admission?: YesPlan: Patient is presently euvolemic we'll continue to monitor. (7) Anemia in chronic kidney disease (CKD) Is this a current diagnosis for this admission?: YesPlan: Hemoglobin is presently stable. We'll continue to monitor (8) Glaucoma Is this a current diagnosis for this admission?: YesPlan: Continue current eyedrops. (9) Hypertension Qualifiers: Hypertension type: essential hypertension Qualified Code(s): I10 - Essential (primary) hypertension Is this a current diagnosis for this admission?: YesPlan: Continue current medications patient is normotensive. - Time Time Spent with patient: 25-34 minutes Critical Time spent with patient: 15-24 minutes Medications reviewed and adjusted accordingly: Yes
--- NOTE | 2016-05-06 17:23 | EKG REPORT ---
SEVERITY:- NORMAL ECG - SINUS RHYTHM : Confirmed by: Steffi Laird MD 06-May-2016 17:23:24
--- NOTE | 2016-05-06 17:53 | PROGRESS NOTE E ---
Progress Note NAME: DIANELYS MARTINEZ : 1955 AGE: 60Y DATE: 05/06/2016 ROOM: 328 The patient is a 60-year-old male with history of end-stage renal disease on dialysis, diabetes, and hypertension along with severe peripheral arterial disease. He presents with a neglected right foot infection. He had noticed increasing problems but was recently just found to have this infection by his providers and referred for surgical evaluation. He has had a previous left foot first digit amputation. He was taken to surgery yesterday undergoing a guillotine transmetatarsal amputation of the first digit as he had wet gangrene with white blood cell count of 32,000. SUBJECTIVE: The patient does not have any significant complaints of pain in the foot at this time. OBJECTIVE: The patient has an open wound where he underwent a transmetatarsal amputation first digit. The wound is clean, no pus. There appears to be some blood supply to this area on the lateral aspect. There is an eschar on the fifth digit. I did not feel any fluctuant areas in the foot or the Myrtle drain going through the wound and out through the dorsum. He has femoral and popliteal pulses. I did not feel any dorsalis pedis or PT pulses. DIAGNOSTIC JUANITA: White blood cell count is 29,000. X-rays preoperative revealed subcutaneous gas. Cultures currently are gram-negative rods and group B Streptococcus. Arterial duplex of his right lower extremity has been ordered and is pending. ASSESSMENT: SEPSIS SECONDARY TO SEVERE DIABETIC INFECTION, UNDERGOING GUILLOTINE AMPUTATION OF THE FIRST DIGIT AND DEBRIDEMENT OF THE LATERAL FIFTH DIGIT. His white blood cell count is improving on vancomycin and Rocephin. I would recommend adding Flagyl as he had gas being seen on the x-rays. He will continue local wound care. We are awaiting results of the arterial duplex to see if he may need some type of revascularization to insure healing of the foot wound. PLAN: 1. Continue local wound care. 2. Continue IV antibiotics. 3. Obtain the results of the arterial duplex. DICTATING PHYSICIAN: KAYLIN SPANGLER M.D. [id number] PHY#: [id number] ID: [id number] JOB#: [id number] ACCT: [id number] cc: >
[2016-05-06] MEDS: METRONIDAZOLE 500 MG/NS RTU 100 ML IV SCH (20:44)
[2016-05-06] MEDS: LATANOPROST 0.005% OPH SOLN 2.5 ML OD SCH (22:54)
[2016-05-06] MEDS: CETIRIZINE 10 MG TABLET PO SCH (22:54)
[2016-05-06] MEDS: CEFTRIAXONE 1 GM/D5W RTU 1 GM/50 ML RTUPB IV SCH (22:55)
[2016-05-07] MEDS: METRONIDAZOLE 500 MG/NS RTU 100 ML IV SCH ×2 (02:09→08:37)
[2016-05-07] MEDS: FUROSEMIDE 40 MG TABLET PO SCH (05:30)
[2016-05-07] MEDS: HEPARIN SOD (PORCINE) 5,000 UNIT/ML 1 ML SYRINGE SUBCUT SCH (05:31)
[2016-05-07] MEDS: ACETAMINOPHEN 325 MG TABLET PO PRN (06:00)
[2016-05-07 06:13] LABS: HEMATOCRIT 35.8 % (37.9-51.0); HEMOGLOBIN 11.2 g/dL (13.5-17.0); HGB HCT DIFFERENCE -2.2; MEAN CORPUSCULAR HEMOGLOBIN 27.8 pg (27.0-33.4); MEAN CORPUSCULAR HGB CONC 31.3 g/dL (32.0-36.0); MEAN CORPUSCULAR VOLUME 89 fl (80-97); RED BLOOD COUNT 4.03 10^6/uL (4.35-5.55); RED CELL DISTRIBUTION WIDTH 16.3 % (11.5-14.0); WHITE BLOOD COUNT 29.4 10^3/uL (4.0-10.5)
[2016-05-07 06:33] LABS: ANION GAP 18 (5-19); BLOOD UREA NITROGEN 52 mg/dL (7-20); CALCIUM 9.3 mg/dL (8.4-10.2); CARBON DIOXIDE 25 mmol/L (22-30); CHLORIDE 95 mmol/L (98-107); CREATININE RESULT 9.63 mg/dL (0.52-1.25); GLUCOSE 114 mg/dL (75-110); POTASSIUM 4.2 mmol/L (3.6-5.0); SODIUM 137.8 mmol/L (137-145)
[2016-05-07 06:35] LABS: BASOPHILS % (MANUAL) 0 % (0-2); EOSINOPHILS % (MANUAL) 1 % (0-6); LYMPHOCYTES % (MANUAL) 8 % (13-45); TOTAL CELLS COUNTED 100
[2016-05-07 06:40] LABS: ANISOCYTOSIS 1+; POIKILOCYTOSIS 1+; TARGET CELLS 1+; TOXIC GRANULATION 1+; TOXIC VACUOLATION PRESENT
[2016-05-07] MEDS: SEVELAMER HCL 400 MG TABLET PO SCH (08:38)
[2016-05-07] MEDS ORDERED: GUAIFENESIN SYRP 200 MG/10 ML UDC PO PRN (09:16)
[2016-05-07] MEDS: FOLIC ACID/VITAMIN B COMP W-C CAPSULE PO SCH (10:08)
[2016-05-07] MEDS: CHOLECALCIFEROL (D3) 1,000 UNIT TABLET PO SCH (10:08)
[2016-05-07] MEDS: ASPIRIN 81 MG TABLET, CHEWABLE PO SCH (10:08)
[2016-05-07] MEDS: CALCIUM CARBONATE 500 MG TAB.CHEW PO SCH (10:08)
[2016-05-07] MEDS: DOCUSATE SODIUM 100 MG CAPSULE PO SCH (10:08)
[2016-05-07] MEDS: METOLAZONE 5 MG TABLET PO SCH (10:09)
[2016-05-07] MEDS: CLONIDINE HCL 0.2 MG TABLET PO SCH (10:09)
[2016-05-07 12:35] VITALS: BP 124/63
--- NOTE | 2016-05-07 12:39 | PROGRESS NOTE E ---
Progress Note NAME: DIANELYS MARTINEZ : 1955 AGE: 60Y DATE: 05/07/2016 ROOM: 328 The patient presented with a septic right foot, having wet gangrene first digit, undergoing amputation 2 days ago. He currently is on hemodialysis. SUBJECTIVE: The patient does not have any complaints of pain in the right foot at current time. OBJECTIVE: The patient's foot is cooler today than yesterday. There is now necrosis on the dorsal aspect extending proximally from where he had the toe amputation. DIAGNOSTIC DATA: Duplex pending at the current time. ASSESSMENT: The patient is presenting with a septic right foot that is threatened. I feel that at the current time, the progression that he needs to have something performed emergently in order to try and see if his leg can be revascularized, otherwise, he will end up with an [id number] amputation. I have spoken to Dr. Valentino in [place] who will be accepting the patient. PLAN: Transfer to Dr. Valentino in [place] for possible arterial intervention to try and re-perfuse the foot, debridement, versus [id number] amputation. DICTATING PHYSICIAN: KAYLIN SPANGLER M.D. [id number] PHY#: [id number] ID: [id number] JOB#: [id number] ACCT: [id number] cc: >
--- NOTE | 2016-05-07 12:41 | PDOC TRANSFER SUMMARY ---
General Admission Date/PCP: 05/05/16 14:39 DIYA LOONEY MD Admission Date: 05/05/16 Transfer Date: 05/07/16 Accepting Facility: [facility] Accepting Physician: Dr Valentino Resuscitation Status: Full Code - Transfer Diagnosis (1) Sepsis Is this a current diagnosis for this admission?: YesDiagnosis Summary: Patient is no longer tachycardic, or hypotensive. He has been receiving IV vancomycin, Flagyl and Rocephin. Blood cultures have been negative. The culture shows group B streptococcus and gram-negative rods. He is continued her on low-grade fever and had a significant leukocytosis. (2) PVD (peripheral vascular disease) Is this a current diagnosis for this admission?: YesDiagnosis Summary: LIVE of the right lower extremity today shows reduced flow to the right foot. Dr. Del Rosario, the on-call surgeon, his contact Dr. Valentino in [place] for possible revascularization procedure or BKA. Patient has prior imitation of his left great toe. He has a history of diabetes mellitus type II and end- stage renal disease. (3) Diabetes Is this a current diagnosis for this admission?: YesDiagnosis Summary: Patient will continue sliding scale coverage and current medications. (4) Gangrene Is this a current diagnosis for this admission?: YesDiagnosis Summary: Right great toe was amputated on 05/[address] Etienne. Today there is increased darkened areas to the bottom of the right foot. He has confirmed diminished flow to the right foot. (5) ESRD (end stage renal disease) Is this a current diagnosis for this admission?: YesDiagnosis Summary: Patient is on hemodialysis 3 times weekly she is scheduled for dialysis today. (6) CHF (congestive heart failure) Is this a current diagnosis for this admission?: YesDiagnosis Summary: Currently euvolemic. His diastolic congestive heart failure which is well controlled. (7) Anemia in chronic kidney disease (CKD) Is this a current diagnosis for this admission?: YesDiagnosis Summary: Hemoglobin has been stable continue to monitor. (8) Glaucoma Is this a current diagnosis for this admission?: YesDiagnosis Summary: Continue eyedrops (9) Hypertension Is this a current diagnosis for this admission?: YesDiagnosis Summary: Continue current medication he has been normotensive. - Transfer Medications Home Medications: Amlodipine Besylate [Norvasc 10 mg Tablet] 10 mg PO DAILY 05/05/16 Aspirin [Aspirin 81 mg Chewable Tablet] 81 mg PO DAILY 05/05/16 Brimonidine Tartrate/Timolol [Combigan 0.2%-0.5% Eye Drops] 5 ml OD BID Calcium Carbonate [Tums Chewable 500 mg Tab.chew] 1,000 mg PO DAILY 05/05/16 Carvedilol [Coreg 12.5 mg Tablet] 12.5 mg PO Q12 05/05/16 Cetirizine HCl [Zyrtec 10 mg Tablet] 1 tab PO QHS 05/05/16 Cholecalciferol (Vitamin D3) [Vitamin D3 1000 Unit Tablet] 1,000 unit PO BID Clonidine HCl [Catapres 0.2 mg Tablet] 0.2 mg PO Q12 05/05/16 Docusate Sodium [Colace 100 mg Capsule] 200 mg PO DAILY 05/05/16 Folic Acid/Vitamin B Comp W-C [Nephrocaps Multiple Vitamin Capsule] 1 cap PO DAILY 05/05/16 Furosemide [Lasix] 40 mg PO Q8 05/05/16 Hydralazine HCl [Apresoline 25 mg Tablet] 25 mg PO Q8 05/05/16 Insulin Glargine,Hum.rec.anlog [Lantus Insulin 100 Unit/1 ml 10 ml] 35 unit SUBCUT QHS 05/05/16 Latanoprost [Xalatan 0.005% Oph Soln 2.5 ml] 1 drop OD QHS 05/05/16 Metolazone [Zaroxolyn 5 Mg Tablet] 5 mg PO DAILY 05/05/16 Multivitamin [Tab-A-Jose] 1 each PO DAILY 05/05/16 Sevelamer Carbonate [Renvela] 1,600 mg PO ASDIR 05/05/16 Sevelamer Carbonate [Renvela] 2,400 mg PO MEALS 05/05/16 Tramadol HCl [Ultram 50 mg Tablet] 50 mg PO BIDP PRN 05/05/16 Transfer Medications: Current Medications Acetaminophen (Tylenol 325 Mg Tablet) 650 mg PO Q4HP PRN PRN Reason: FOR PAIN OR TEMP Stop: 06/04/16 14:38 Last Admin: 05/07/16 06:00 Dose: 650 mg Aspirin (Aspirin 81 Mg Chewable Tablet) 81 mg PO DAILY [facility] Stop: 06/05/16 09:59 Last Admin: 05/07/16 10:08 Dose: 81 mg Calcium Carbonate (Tums Chewable 500 Mg Tab.Chew) 1,000 mg PO DAILY SURYA Stop: 06/05/16 09:59 Last Admin: 05/07/16 10:08 Dose: 1,000 mg Cetirizine HCl (Zyrtec 10 Mg Tablet) 10 mg PO QHS SURYA Stop: 06/04/16 21:59 Last Admin: 05/06/16 22:54 Dose: 10 mg Cholecalciferol (Vitamin D3 1000 Unit Tablet) 1,000 unit PO BID SURYA Stop: 06/04/16 17:59 Last Admin: 05/07/16 10:08 Dose: 1,000 unit Clonidine (Catapres 0.2 Mg Tablet) 0.2 mg PO Q12 SURYA Stop: 06/04/16 21:59 Last Admin: 05/07/16 10:09 Dose: 0.2 mg Dextrose (Dextrose Inj 50% Syringe (25 Gm/50 Ml)) 12.5 gm IV PRN PRN; Protocol PRN Reason: FOR BG 50-69 IN ALERT PATIENT Stop: 06/04/16 14:37 Dextrose (Dextrose Inj 50% Syringe (25 Gm/50 Ml)) 25 gm IV PRN PRN PRN Reason: Protocol Stop: 06/04/16 14:37 Docusate Sodium (Colace 100 Mg Capsule) 200 mg PO DAILY [facility] Stop: 06/05/16 09:59 Last Admin: 05/07/16 10:08 Dose: 200 mg Furosemide (Lasix 40 Mg Tablet) 40 mg PO Q8 SURYA Stop: 06/04/16 21:59 Last Admin: 05/07/16 05:30 Dose: 40 mg Glucagon (Glucagen Inj 1 Mg Vial) 1 mg IM PRN PRN; Protocol PRN Reason: Evaluate for BG < 70 Stop: 06/04/16 14:37 Glucose (Glutose 40% Gel 15 Gm Tube) 15 gm PO PRN PRN; Protocol PRN Reason: FOR BG 50-69 IN ALERT PATIENT Stop: 06/04/16 14:37 Glucose (Glutose 40% Gel 15 Gm Tube) 30 gm PO PRN PRN; Protocol PRN Reason: FOR BG < 50 IN ALERT PATIENT Stop: 06/04/16 14:37 Guaifenesin (Robitussin Syrup 200 Mg/10 Ml Ud Cup) 200 mg PO Q4HP PRN Stop: 06/06/16 09:15 Heparin Sodium (Porcine) (Heparin Inj 5,000 Units/Ml 1 Ml Syringe) 5,000 unit SUBCUT Q8 SURYA Stop: 06/04/16 21:59 Last Admin: 05/07/16 05:31 Dose: 5,000 unit Hydralazine HCl (Apresoline Inj/Pf 20 Mg/1 Ml Sdv) 10 mg IV Q6HP PRN Stop: 06/04/16 14:38 Ceftriaxone Sodium/Dextrose (Rocephin Rtu 1 Gm/D5w 50 Ml Premix) 1 gm in 50 mls @ 100 mls/hr IV QHS SURYA Stop: 05/12/16 21:59 Last Admin: 05/06/16 22:55 Dose: 50 ml Vancomycin HCl 750 mg/ (Dextrose) 250 mls @ 166.667 mls/hr IV PDIA [facility] Stop: 05/14/16 17:59 Metronidazole (Flagyl Rtu 500 Mg/Ns 100ml Premix) 100 mls @ 100 mls/hr IV Q6A [facility] Stop: 05/13/16 20:59 Last Admin: 05/07/16 08:37 Dose: 100 ml Insulin Human Lispro (Humalog Insulin 100 Unit/1 Ml 3 Ml Vial) 0 - 12 unit SUBCUT Q6HP PRN PRN Reason: Protocol Stop: 06/04/16 14:37 Latanoprost (Xalatan 0.005% Oph Soln 2.5 Ml) 1 drop OD QHS [facility] Stop: 06/04/16 21:59 Last Admin: 05/06/16 22:54 Dose: 1 drop Metolazone (Zaroxolyn 5 Mg Tablet) 5 mg PO DAILY [facility] Stop: 06/05/16 09:59 Last Admin: 05/07/16 10:09 Dose: 5 mg Multivit/Ca Carb/B Cmplx/FA/Prenat (Nephrocaps Multiple Vitamin Capsule) 1 cap PO DAILY [facility] Stop: 06/05/16 09:59 Last Admin: 05/07/16 10:08 Dose: 1 cap Ondansetron HCl (Zofran Inj/Pf 4 Mg/2 Ml Sdv) 4 mg IV Q6HP PRN PRN Reason: FOR NAUSEA/VOMITING Stop: 06/04/16 14:38 Patient Own Medication (Brimonidine Tartrate/Timolol [Combigan 0.2%-0.5% Eye Drops]) 5 ml OD .BID SURYA Stop: 06/04/16 17:59 Sevelamer HCl (Renagel 400 Mg Tablet) 2,400 mg PO MEALS SURYA Stop: 06/05/16 07:59 Last Admin: 05/07/16 08:38 Dose: 2,400 mg Sodium Chloride (Saline Flush 2.5 Ml Monoject Prefil Syrin) 2.5 ml IV Q8 SURYA Stop: 06/04/16 21:59 Last Admin: 05/07/16 05:30 Dose: 2.5 ml - Allergies Allergies/Adverse Reactions: No Known Allergies Allergy (Verified 05/05/16 10:52) Hospital Course Hospital Course: Patient was referred to the emergency room on 05/05/2016, by Dr. Lake in the wound care clinic. Because of worsening infection to the right great toe. Patient has a history of diabetes mellitus type II, essential hypertension, peripheral vascular disease with prior left great toe amputation and end-stage renal disease on hemodialysis 3 times weekly. Patient was referred to the hospitalist service for admission. Dr. Etienne, was on-call for surgery, saw the patient and agreed to take him to the operating room for amputation of the right great toe. Patient underwent amputation of the right great toe. He was started on IV antibiotics empirically after blood cultures were obtained and tissue cultures were obtained from the wound. He had a significant leukocytosis of 34,000 upon admission temperature 102.7. This improved over the next 24 hours. Today he's had low-grade fevers overnight. White count did increase to 29,000 from 27,000 overnight. Blood cultures have remained negative. Examination of the right foot by Dr. Del Rosario, on-call surgeon, reveals increasing darkened area at the bottom of the right foot. ABIs were obtained of the right lower extremity, which shows poor blood flow to the right foot. Dr. Del Rosario, consult to Dr. Valentino at [facility] who has agreed to take the patient in transfer for possible re vascularization procedure for completion BKA. Physical Exam Vital Signs: Temp Pulse Resp BP Pulse Ox 98.1 F 73 19 122/46 L 100 05/07/16 07:37 05/07/16 07:37 05/07/16 07:37 05/07/16 07:37 05/07/16 07:37 Intake & Output 05/06/16 05/07/16 05/08/16 06:59 06:59 06:59 Intake Total 830 1093 Output Total 2005 0 Balance -1175 1093 Weight 101.8 kg 104.3 kg General appearance: PRESENT: no acute distress, well-developed, well-nourished Head exam: PRESENT: atraumatic, normocephalic Eye exam: PRESENT: conjunctiva pink, EOMI, PERRLA. ABSENT: scleral icterus Ear exam: PRESENT: normal external ear exam Mouth exam: PRESENT: moist, tongue midline Neck exam: ABSENT: carotid bruit, JVD, lymphadenopathy, thyromegaly Respiratory exam: PRESENT: accessory muscle use Cardiovascular exam: PRESENT: RRR. ABSENT: diastolic murmur, rubs, systolic murmur Pulses: PRESENT: normal carotid pulses, normal radial pulses Vascular exam: PRESENT: normal capillary refill GI/Abdominal exam: PRESENT: normal bowel sounds, soft. ABSENT: distended, guarding, mass, organolmegaly, rebound, tenderness Rectal exam: PRESENT: deferred Extremities exam: PRESENT: full ROM, tenderness - right foot. ABSENT: calf tenderness, clubbing, pedal edema Musculoskeletal exam: PRESENT: ambulatory, other - Prior amputation of the left great toe, amputation of the right great toe Neurological exam: PRESENT: alert, awake, oriented to person, oriented to place , oriented to time, oriented to situation, CN II-XII grossly intact. ABSENT: motor sensory deficit Psychiatric exam: PRESENT: appropriate affect, normal mood. ABSENT: homicidal ideation, suicidal ideation Skin exam: PRESENT: dry, intact, warm. ABSENT: cyanosis, rash Results Laboratory Results: 05/07/16 05:06 05/07/16 05:06 05/07/16 05/07/16 05:06 05:06 WBC 29.4 H RBC 4.03 L Hgb 11.2 L Hct 35.8 L MCV 89 MCH 27.8 MCHC 31.3 L RDW 16.3 H Plt Count 265 Seg Neutrophils % Not Reportable Lymphocytes % Not Reportable Monocytes % Not Reportable Eosinophils % Not Reportable Basophils % Not Reportable Absolute Neutrophils Not Reportable Absolute Lymphocytes Not Reportable Absolute Monocytes Not Reportable Absolute Eosinophils Not Reportable Absolute Basophils Not Reportable Sodium 137.8 Potassium 4.2 Chloride 95 L Carbon Dioxide 25 Anion Gap 18 BUN 52 H Creatinine 9.63 H Est GFR ( Amer) 7 L Est GFR (Non-Af Amer) 6 L Glucose 114 H Calcium 9.3 Impressions: Chest X-Ray 05/05/16 12:13 IMPRESSION: NO SIGNIFICANT RADIOGRAPHIC FINDING IN THE CHEST. Foot X-Ray 05/05/16 12:14 IMPRESSION: Cellulitis. No evidence of osteomyelitis. Plan Discharge Plan: Transfer to [facility] under the care of Dr. Valentino. Time Spent: Greater than 30 Minutes
--- NOTE | 2016-05-07 13:17 | XCELERA REPORT ---
[address] [address] Lower Extremity Arterial Evaluation Name: DIANELYS MARTINEZ Age: 60 yrs Gender: Male : 1955 Patient Status: Inpatient Patient Location: [id number]\A Study Date: 05/07/2016 09:10 AM Procedure: A color flow and duplex scan of the lower extremity arteries was performed on the right with velocity and waveform anaylsis. Reason For Study: ischemic right foot Ordering Physician: KENDRA LEAVITT Performed By: Jessie Govea Measurements and Calculations Right Left HOG SLAUGHTERER PSV 201.3 cm/sec Prox PFA PSV -83.8 cm/sec Prox SFA PSV -98.2 cm/sec Mid SFA PSV -121.3 cm/sec Dist SFA PSV -104.2 cm/sec Prox Pop A PSV 90.4 cm/sec Dist MAGGY PSV 77.7 cm/sec Toney Pedis PSV 22.0 34.6 cm/sec Right Side Arterial Evaluation Normal velocity, waveform and triphasic flow are present, from the Common Femoral artery to the Femoral artery. Biphasic in the Popliteal. Occluded Posterior Tibial with no noticeable reconstitution. Monophasic flow with fairly well maintained velocity, till marked diminution in the Dorsalis Pedis artery.. The ankle-brachial index was not done. 20-49% stenosis is noted at the Femoral artery. With sequential disease. Left Side Arterial Evaluation Limited evaluation shows monophasic signal in the Dorsalis Pedis. Critical Findings Discussed with Dr Del Rosario at about 1200. Interpretation Summary Severe hemodynamically significant lesions in the right lower extremity only, on duplex imaging, at rest. : KENDRA LEAVITT > Inder Kapoor
[2016-05-07] MEDS ORDERED: VANCOMYCIN HCL 750 MG in DEXTROSE 5%-WATER 250 ML IV SCH (18:00)
== END 2016-05-07 13:56 | disposition short-term general hospital (02) | DRG 853 ==
LOC: ER 10:47 → EH 14:26 → UNDOADMIN 14:26 → EH 14:39 → 3S 20:00
PROVIDERS: ADMIT Family Medicine; ATTEND Family Medicine
PROC: 0H9MX0Z Drainage of Right Foot Skin with Drainage Device, External Approach (ICD-10-PCS; 2016-05-05)
PROC: 0HDMXZZ Extraction of Right Foot Skin, External Approach (ICD-10-PCS; 2016-05-05)
PROC: 5A1D00Z (ICD-10-PCS; 2016-05-05)
PROC: 0Y6P0Z0 Detachment at Right 1st Toe, Complete, Open Approach (ICD-10-PCS; principal; 2016-05-05 18:30)
DX: A41.9 Sepsis, unspecified organism (principal); N18.6 End stage renal disease; E11.52 Type 2 diabetes mellitus with diabetic peripheral angiopathy with gangrene; I13.2 Hypertensive heart and chronic kidney disease with heart failure and with stage 5 chronic kidney disease, or end stage renal disease; I50.32 Chronic diastolic (congestive) heart failure; E11.22 Type 2 diabetes mellitus with diabetic chronic kidney disease; E11.621 Type 2 diabetes mellitus with foot ulcer; L97.511 Non-pressure chronic ulcer of other part of right foot limited to breakdown of skin; B95.1 Streptococcus, group B, as the cause of diseases classified elsewhere; I25.10 Atherosclerotic heart disease of native coronary artery without angina pectoris; E78.5 Hyperlipidemia, unspecified; J44.9 Chronic obstructive pulmonary disease, unspecified; K21.9 Gastro-esophageal reflux disease without esophagitis; D63.1 Anemia in chronic kidney disease; H40.9 Unspecified glaucoma; Z82.49 Family history of ischemic heart disease and other diseases of the circulatory system; Z79.4 Long term (current) use of insulin; Z79.899 Other long term (current) drug therapy; Z99.2 Dependence on renal dialysis; Z89.412 Acquired absence of left great toe
CPT/HCPCS: 01480; 36415; 71010; 80048; 80053; 82962; 83036; 85025; 85610; 85730; 86140; 87040; 87070; 87075; 87077; 87186; 87205; 88304; 88311; 93005; 93010; 93926; 96374; 99291; J0696; J1644; J2250; J2704; J3010; J3370; J3490; J7030

== ENCOUNTER 2016-06-27 21:11 | Emergency (ER) | payer OTHER ==
[2016-06-27 23:07] LABS: ABSOLUTE BASOPHILS # (AUTO) 0.2 10^3/uL (0.0-0.2); ABSOLUTE EOSINOPHILS # (AUTO) 0.7 10^3/uL (0.0-0.6); ABSOLUTE LYMPHOCYTES (AUTO) 1.2 10^3/uL (0.5-4.7); ABSOLUTE MONOCYTES (AUTO) 1.1 10^3/uL (0.1-1.4); ABSOLUTE NEUT (AUTO) 11.2 10^3/uL (1.7-8.2); BASOPHILS % (AUTO) 1.2 % (0-2); EOSINOPHILS % (AUTO) 4.6 % (0-6); HEMOGLOBIN 9.5 g/dL (13.5-17.0); HGB HCT DIFFERENCE -1.5; LYMPHOCYTES % (AUTO) 8.3 % (13-45); MEAN CORPUSCULAR HEMOGLOBIN 27.5 pg (27.0-33.4); MEAN CORPUSCULAR HGB CONC 31.7 g/dL (32.0-36.0); MEAN CORPUSCULAR VOLUME 87 fl (80-97); MONOCYTES % (AUTO) 7.9 % (3-13); RED BLOOD COUNT 3.46 10^6/uL (4.35-5.55); RED CELL DISTRIBUTION WIDTH 19.8 % (11.5-14.0); WHITE BLOOD COUNT 14.3 10^3/uL (4.0-10.5)
[2016-06-27 23:27] LABS: ALANINE AMINOTRANSFERASE 22 U/L (21-72); ALBUMIN 3.8 g/dL (3.5-5.0); ALKALINE PHOSPHATASE 95 U/L (38-126); ANION GAP 18 (5-19); ASPARTATE AMINO TRANSFERASE 20 U/L (17-59); BILIRUBIN,DIRECT 0.5 mg/dL (0.0-0.4); BILIRUBIN,TOTAL 0.6 mg/dL (0.2-1.3); BLOOD UREA NITROGEN 35 mg/dL (7-20); CALCIUM 9.3 mg/dL (8.4-10.2); CARBON DIOXIDE 27 mmol/L (22-30); CHLORIDE 97 mmol/L (98-107); CREATININE RESULT 7.33 mg/dL (0.52-1.25); GLUCOSE 142 mg/dL (75-110); LIPASE 470.9 U/L (23-300); POTASSIUM 4.3 mmol/L (3.6-5.0); SODIUM 141.5 mmol/L (137-145); TOTAL PROTEIN 8.4 g/dL (6.3-8.2)
--- NOTE | 2016-06-28 00:27 | ER Document Report ---
ED GI/ - General Mode of Arrival: Ambulatory Information source: Patient TRAVEL OUTSIDE OF THE [place] IN LAST 30 DAYS: No - HPI Patient complains to provider of: Flank pain Similar symptoms previously: No Recently seen / treated by doctor: Yes <JENIFER PRITCHARD - Last Filed: 06/28/16 03:27> <KRISTIAN PHILLIPS - Last Filed: 07/21/16 11:06> - General Chief Complaint: Flank Pain Stated Complaint: LOWER BACK PAIN Notes: Patient is a 61-year-old male that presents to the emergency department today with complaints of right-sided flank pain. Patient states the pain began yesterday. Patient states the pain comes and goes and when it sets in it is a very sharp pain. Patient is on dialysis, Thursday//Thursday. Patient states dialysis yesterday was uneventful without complication. Patient states he feels like he cannot get comfortable today. Patient states he has had a few episodes of vomiting with his pain. Patient denies any diarrhea, bloody stool, or constipation. Patient denies a history of back problems in the past or kidney stones. (JENIFER PRITCHARD) - Related Data Allergies/Adverse Reactions: No Known Allergies Allergy (Verified 05/05/16 10:52) Past Medical History - General Information source: Patient - Social History Smoking Status: Never Smoker Cigarette use (# per day): No Frequency of alcohol use: None Drug Abuse: None Lives with: Family Family History: Reviewed & Not Pertinent, CAD, Hyperlipidemia, Hypertension Patient has suicidal ideation: No Patient has homicidal ideation: No - Past Medical History Cardiac Medical History: Reports: Hx Congestive Heart Failure - Diastolic, Hx Coronary Artery Disease, Hx Hypercholesterolemia, Hx Hypertension Pulmonary Medical History: Reports: Hx Asthma, Hx COPD, Hx Pneumonia - 2013, Hx Sleep Apnea Endocrine Medical History: Reports: Hx Diabetes Mellitus Type 2 Renal/ Medical History: Reports: Hx End Stage Renal Disease, Hx Renal Insufficiency GI Medical History: Reports: Hx Gastroesophageal Reflux Disease Skin Medical History: Reports Hx Cellulitis - LOWER EXTREMITY OSTEO LEFT FOOT Past Surgical History: Reports: Hx Cardiac Catheterization - Cardiac catheterization few months ago showed mild CAD., Hx Orthopedic Surgery - Left big toe amputation, knee arthroscopy, Hx Vascular Surgery - Left forearm AV fistula, Other - Bilateral cataract extraction - Immunizations Hx Diphtheria, Pertussis, Tetanus Vaccination: Yes Hx Pneumococcal Vaccination: 01/19/12 <JENIFER PRITCHARD - Last Filed: 06/28/16 03:27> Review of Systems - Review of Systems Constitutional: No symptoms reported EENT: No symptoms reported Cardiovascular: No symptoms reported Respiratory: No symptoms reported Gastrointestinal: See HPI, Vomiting. denies: Diarrhea, Constipation, Blood in vomit, Black stools, Rectal bleeding Genitourinary: See HPI, Flank pain - right Male Genitourinary: No symptoms reported Musculoskeletal: No symptoms reported Skin: No symptoms reported Hematologic/Lymphatic: No symptoms reported Neurological/Psychological: No symptoms reported -: Yes All other systems reviewed and negative <JENIFER PRITCHARD - Last Filed: 06/28/16 03:27> Physical Exam <JENIFER PRITCHARD - Last Filed: 06/28/16 03:27> <KRISTIAN PHILLIPS - Last Filed: 07/21/16 11:06> - Vital signs Vitals: Temp Pulse Resp BP Pulse Ox 99.4 F 101 H 18 153/67 H 99 06/27/16 21:40 06/27/16 21:40 06/27/16 21:40 06/27/16 21:40 06/27/16 21:40 - Notes Notes: Physical Exam: General: Alert, appears uncomfortable secondary to pain. HEENT: Normocephalic. Atraumatic. PERRL. Extraocular movements intact. Oropharynx clear. Neck: Supple. Non-tender. Respiratory: No respiratory distress. Clear and equal breath sounds bilaterally. Cardiovascular: Regular rate and rhythm. Abdominal: Normal Inspection. Non-tender. No distension. Normal Bowel Sounds. No pulsatile abdominal masses. Back: Right CVA tenderness with percussion. No deformity or step off. Extremities: Upper extremities: Normal inspection. Normal ROM. Lower extremities: Right BKA, left great toe amputation. Neurological: Normal cognition. AAOx4. Normal speech. Psychological: Normal affect. Normal Mood. Skin: Warm. Dry. Normal color. (JENIFER PRITCHARD) Course - Laboratory Result Diagrams: 06/27/16 22:53 06/27/16 22:53 <JENIFER PRITCHARD - Last Filed: 06/28/16 03:27> - Laboratory Result Diagrams: 06/27/16 22:53 06/27/16 22:53 <KRISTIAN PHILLIPS - Last Filed: 07/21/16 11:06> - Re-evaluation Re-evalutation: 06/28/16 05:21 Patient presents to the emergency department with right-sided back pain. He says it hurts when he moves a certain way trouble sitting standing or laying in a comes and goes. On examination he has reproducible tenderness in the right paralumbar muscular skeletal region. He denies any abdominal pain and epigastric pain problems with his gallbladder alcohol use or NSAID use. He urinates once a day with dialysis and hasn't urinated in the past several hours. He denies any fevers chills cough chest pain shortness of breath no nausea vomiting diarrhea or blood in his stool. He last dialyzed with a normal round. On examination he has no pulsatile dullness or hernias he has reproducible right paralumbar muscular skeletal tenderness it is not midline. CT scan doesn't show any aneurysm kidney stone or other overt signs of infection. Has a slight elevated white count at 14.3 without a fever baseline anemia. He has a normal AST and ALTs with a lipase of 470. Reassessed on examination pain is reproducible with touch movement and positioning there is no shingles. No acute abdominal findings. He does have a slightly elevated lipase but he doesn't have any overt signs of pancreatitis with epigastric pain and right upper quadrant pain the pain is reproducible with touch and movement is not where he typically C pancreatitis. When ahead and gave him a dose of pain medication here he is going to follow up with dialysis this morning. Because it is a weekend his family doctors close I want him to recheck and reevaluation in 12 hours in the emergency department where we can reassess him. Right now I don't think he has acute pancreatitis despite a mildly elevated lipase. Discussed with him and friend at bedside reasons for emergency department return sooner (KRISTIAN PHILLIPS) - Vital Signs Vital signs: Temp Pulse Resp BP Pulse Ox 99.4 F 95 16 165/77 H 100 06/27/16 21:40 06/28/16 05:45 06/28/16 05:45 06/28/16 05:45 06/28/16 05:45 - Laboratory Laboratory results interpreted by me: 06/27/16 06/27/16 22:53 22:53 WBC 14.3 H RBC 3.46 L Hgb 9.5 L Hct 30.0 L MCHC 31.7 L RDW 19.8 H Lymphocytes % 8.3 L Absolute Neutrophils 11.2 H Absolute Eosinophils 0.7 H Chloride 97 L BUN 35 H Creatinine 7.33 H Est GFR ( Amer) 9 L Est GFR (Non-Af Amer) 8 L Glucose 142 H Direct Bilirubin 0.5 H Total Protein 8.4 H Lipase 470.9 H Discharge <JENIFER PRITCHARD - Last Filed: 06/28/16 03:27> <KRISTIAN PHILLIPS - Last Filed: 07/21/16 11:06> - Discharge Clinical Impression: back pain, elevated lipase Condition: Stable Disposition: HOME, SELF-CARE Additional Instructions: Flank Pain We weren't able to prove an exact cause for your flank pain. Pain in the flank can be caused by a muscle strain or spasm. Sometimes a kidney stone causes pain, but can't be found on our tests. Infection in the kidney should be evident on a urine test. Early shingles can occasionally cause flank pain, without the rash that proves the diagnosis. On rare occasions, disease of the pancreas, aorta, spleen, or colon can create pain in the flank. At this time, there's no evidence of a dangerous condition, and it seems safe for you to be at home. If the pain goes away and does not come back, no further testing will be needed. If pain persists, or becomes more severe, we may need to repeat some tests or order additional new testing. Blood in the urine, urgency to urinate frequently, and pain that radiates to the groin can indicate a kidney stone. Fever may mean that the pain is due to infection, either of the kidney or the colon (diverticulitis). If your pain is early shingles, you should develop an eruption of blisters in the painful area within a few days. Call the doctor or return if you have pain that is spreading or becoming more severe, pain that does not resolve with time, fever, or any other new symptoms. Return to the emergency department for recheck and reevaluation in 12-24 hours. Return sooner for increasing worsening or new symptoms Scribe Attestation: 06/28/16 05:24 I personally performed the services described in the documentation reviewed the documentation recorded by my scribe in my presence and it accurately and completely records my words and actions (KRISTIAN PHILLIPS) Scribe Documentation - Scribe Written by Scribjohn:: Christina Pool, [id number] 06/28/2016 acting as scribe for :: Christopher <JENIFER PRITCHARD - Last Filed: 06/28/16 03:27>
[2016-06-28] MEDS ORDERED: FENTANYL CITRATE INJ/PF 100 MCG/2 ML AMPUL IV ONE (01:33)
[2016-06-28] MEDS ORDERED: HYDROCODONE/ACETAMINOPHEN 5-325 MG TABLET PO ONE (05:25)
[2016-06-28] MEDS ORDERED: HYDROCODONE/ACETAMINOPHEN 5-325 MG 6 TAB/DSPK PO PRN (05:25)
[2016-06-28 05:46] VITALS: BP 165/77
== END 2016-06-28 05:45 | disposition home or self-care (01) ==
LOC: ER 21:11
DX: R74.8 Abnormal levels of other serum enzymes (principal); M54.9 Dorsalgia, unspecified; R11.10 Vomiting, unspecified; E11.22 Type 2 diabetes mellitus with diabetic chronic kidney disease; I13.2 Hypertensive heart and chronic kidney disease with heart failure and with stage 5 chronic kidney disease, or end stage renal disease; N18.6 End stage renal disease; I50.30 Unspecified diastolic (congestive) heart failure; Z99.2 Dependence on renal dialysis; I25.10 Atherosclerotic heart disease of native coronary artery without angina pectoris; E78.00 Pure hypercholesterolemia, unspecified; J45.909 Unspecified asthma, uncomplicated; J44.9 Chronic obstructive pulmonary disease, unspecified
CPT/HCPCS: 99284; 96374; 36415; 83690; 85025; 80053; 83605; 74176; J3010

== ENCOUNTER → 2017-04-07 | Outpatient (CLI) | payer OTHER | LOC: OD 16:07 | PROVIDERS: ATTEND Specialist | DX: M13.80 Other specified arthritis, unspecified site (principal) | CPT/HCPCS: 36415; 85652; 86430 ==

== ENCOUNTER → 2017-07-13 | Outpatient (CLI) | payer OTHER, MEDICARE ==
[2017-07-13 09:44] LABS: ABSOLUTE BASOPHILS # (AUTO) 0.2 10^3/uL (0.0-0.2); ABSOLUTE EOSINOPHILS # (AUTO) 0.4 10^3/uL (0.0-0.6); ABSOLUTE LYMPHOCYTES (AUTO) 1.7 10^3/uL (0.5-4.7); ABSOLUTE MONOCYTES (AUTO) 0.7 10^3/uL (0.1-1.4); ABSOLUTE NEUT (AUTO) 3.8 10^3/uL (1.7-8.2); BASOPHILS % (AUTO) 2.4 % (0-2); EOSINOPHILS % (AUTO) 5.7 % (0-6); HEMATOCRIT 35.9 % (37.9-51.0); HEMOGLOBIN 11.8 g/dL (13.5-17.0); LYMPHOCYTES % (AUTO) 25.1 % (13-45); MEAN CORPUSCULAR HEMOGLOBIN 29.7 pg (27.0-33.4); MEAN CORPUSCULAR HGB CONC 32.8 g/dL (32.0-36.0); MEAN CORPUSCULAR VOLUME 90 fl (80-97); PLATELET COUNT 233 10^3/uL (150-450); RED BLOOD COUNT 3.97 10^6/uL (4.35-5.55); RED CELL DISTRIBUTION WIDTH 15.1 % (11.5-14.0); SEGMENTED NEUTROPHILS % (AUTO) 55.8 % (42-78); TOTAL CELLS COUNTED % (AUTO) 100 %; WHITE BLOOD COUNT 6.8 10^3/uL (4.0-10.5)
[2017-07-13 10:19] LABS: ALANINE AMINOTRANSFERASE 23 U/L (21-72); ALBUMIN 4.2 g/dL (3.5-5.0); ALKALINE PHOSPHATASE 100 U/L (38-126); ANION GAP 18 (5-19); ASPARTATE AMINO TRANSFERASE 25 U/L (17-59); BILIRUBIN,DIRECT 0.4 mg/dL (0.0-0.4); BILIRUBIN,TOTAL 0.4 mg/dL (0.2-1.3); BLOOD UREA NITROGEN 70 mg/dL (7-20); CALCIUM 9.7 mg/dL (8.4-10.2); CARBON DIOXIDE 25 mmol/L (22-30); CHLORIDE 99 mmol/L (98-107); CHOLESTEROL 246.99 mg/dL (0-200); GLUCOSE 120 mg/dL (75-110); POTASSIUM 5.8 mmol/L (3.6-5.0); SODIUM 142.4 mmol/L (137-145); TOTAL PROTEIN 8.1 g/dL (6.3-8.2); TRIGLYCERIDES 256 mg/dL (<150)
[2017-07-13 10:30] LABS: DIRECT LDL 90 mg/dL (<100)
[2017-07-13 10:50] LABS: VLDL CHOLESTEROL 51.2 mg/dL (10-31)
== END ==
LOC: OD 08:53
PROVIDERS: ATTEND Internal Medicine
DX: E11.22 Type 2 diabetes mellitus with diabetic chronic kidney disease (principal); N18.6 End stage renal disease; E78.5 Hyperlipidemia, unspecified; R35.1 Nocturia
CPT/HCPCS: 36415; 80053; 80061; 83036; 84153; 84443; 85025

== ENCOUNTER → 2017-09-28 | Outpatient (CLI) | payer MEDICARE, OTHER ==
[2017-09-28 08:57] LABS: ABSOLUTE BASOPHILS # (AUTO) 0.1 10^3/uL (0.0-0.2); ABSOLUTE EOSINOPHILS # (AUTO) 0.3 10^3/uL (0.0-0.6); ABSOLUTE LYMPHOCYTES (AUTO) 1.5 10^3/uL (0.5-4.7); ABSOLUTE MONOCYTES (AUTO) 0.6 10^3/uL (0.1-1.4); ABSOLUTE NEUT (AUTO) 5.2 10^3/uL (1.7-8.2); BASOPHILS % (AUTO) 1.4 % (0-2); EOSINOPHILS % (AUTO) 4.3 % (0-6); HEMATOCRIT 33.1 % (37.9-51.0); HEMOGLOBIN 10.8 g/dL (13.5-17.0); LYMPHOCYTES % (AUTO) 19.4 % (13-45); MEAN CORPUSCULAR HEMOGLOBIN 30.7 pg (27.0-33.4); MEAN CORPUSCULAR HGB CONC 32.5 g/dL (32.0-36.0); MEAN CORPUSCULAR VOLUME 95 fl (80-97); MONOCYTES % (AUTO) 8.2 % (3-13); PLATELET COUNT 281 10^3/uL (150-450); RED CELL DISTRIBUTION WIDTH 17.7 % (11.5-14.0); SEGMENTED NEUTROPHILS % (AUTO) 66.7 % (42-78); TOTAL CELLS COUNTED % (AUTO) 100 %; WHITE BLOOD COUNT 7.8 10^3/uL (4.0-10.5)
[2017-09-28 09:34] LABS: ALANINE AMINOTRANSFERASE 13 U/L (21-72); ALBUMIN 4.3 g/dL (3.5-5.0); ALKALINE PHOSPHATASE 62 U/L (38-126); ASPARTATE AMINO TRANSFERASE 19 U/L (17-59); BILIRUBIN,DIRECT 0.5 mg/dL (0.0-0.4); BILIRUBIN,TOTAL 0.6 mg/dL (0.2-1.3); BLOOD UREA NITROGEN 52 mg/dL (7-20); CALCIUM 9.7 mg/dL (8.4-10.2); GLUCOSE 106 mg/dL (75-110); POTASSIUM 5.5 mmol/L (3.6-5.0); TOTAL PROTEIN 8.1 g/dL (6.3-8.2)
[2017-09-28 09:41] LABS: ANION GAP 19 (5-19); CARBON DIOXIDE 24 mmol/L (22-30); CHLORIDE 98 mmol/L (98-107); SODIUM 141.3 mmol/L (137-145)
== END ==
LOC: OD 07:57
PROVIDERS: ATTEND Internal Medicine
DX: E11.9 Type 2 diabetes mellitus without complications (principal); I12.0 Hypertensive chronic kidney disease with stage 5 chronic kidney disease or end stage renal disease; N18.6 End stage renal disease
CPT/HCPCS: 36415; 80053; 83036; 85025

== ENCOUNTER 2017-10-14 10:06 | Inpatient (IN) | payer MEDICARE, OTHER ==
--- NOTE | 2017-10-14 10:56 | ER Document Report ---
ED Medical Screen (RME) - General Chief Complaint: Foot Pain Stated Complaint: TOE PAIN Time Seen by Provider: 10/14/17 10:54 Mode of Arrival: Wheelchair Information source: Patient Notes: This is a 62-year-old man with a history of diabetes, peripheral vascular disease, right BKA sent over from the wound care clinic because of discharge from the left foot, necrotic fifth toe. Patient does report low-grade fever and chills for the past 3 days. He does report redness to the foot medially. His physician is Juliana Sandra MD. TRAVEL OUTSIDE OF THE [place] IN LAST 30 DAYS: No - Related Data Allergies/Adverse Reactions: No Known Allergies Allergy (Verified 10/14/17 10:07) Past Medical History - Social History Chew tobacco use (# tins/day): No Frequency of alcohol use: None Drug Abuse: None - Past Medical History Cardiac Medical History: Reports: Hx Congestive Heart Failure - Diastolic, Hx Coronary Artery Disease, Hx Hypercholesterolemia, Hx Hypertension Denies: Hx Heart Attack Pulmonary Medical History: Reports: Hx Asthma, Hx COPD, Hx Pneumonia - 2013, Hx Sleep Apnea Denies: Hx Bronchitis, Hx Tuberculosis Neurological Medical History: Denies: Hx Cerebrovascular Accident, Hx Seizures Endocrine Medical History: Reports: Hx Diabetes Mellitus Type 2 Renal/ Medical History: Reports: Hx End Stage Renal Disease, Hx Peritoneal Dialysis, Hx Renal Insufficiency. Denies: Hx Hemodialysis GI Medical History: Reports: Hx Gastroesophageal Reflux Disease Musculoskeltal Medical History: Denies Hx Arthritis Skin Medical History: Reports Hx Cellulitis - LOWER EXTREMITY OSTEO LEFT FOOT Psychiatric Medical History: Denies: Hx Depression Past Surgical History: Reports: Hx Cardiac Catheterization - Cardiac catheterization few months ago showed mild CAD., Hx Orthopedic Surgery - Left big toe amputation, knee arthroscopy, Hx Vascular Surgery - Left forearm AV fistula, Other - Bilateral cataract extraction - Immunizations Hx Diphtheria, Pertussis, Tetanus Vaccination: Yes Physical Exam - Vital signs Vitals: Temp Pulse Resp BP Pulse Ox 99.2 F 100 18 118/62 100 10/14/17 10:31 10/14/17 10:31 10/14/17 10:31 10/14/17 10:31 10/14/17 10:31 Course - Vital Signs Vital signs: Temp Pulse Resp BP Pulse Ox 99.2 F 100 18 118/62 100 10/14/17 10:31 10/14/17 10:31 10/14/17 10:31 10/14/17 10:31 10/14/17 10:31 Doctor's Discharge - Discharge Referrals: JULIANA SANDRA MD [Primary Care Provider] - Follow up as needed
--- NOTE | 2017-10-14 11:41 | RADIOLOGY REPORT (SQ) ---
EXAM DESCRIPTION: FOOT LEFT COMPLETE COMPLETED DATE/TIME: 10/14/2017 11:17 am REASON FOR STUDY: left foot wound COMPARISON: 06/27/2010 NUMBER OF VIEWS: Three views. TECHNIQUE: AP, lateral and oblique radiographic images acquired of the left foot. LIMITATIONS: None. FINDINGS: MINERALIZATION: Normal. BONES: Prior amputation of the 1st phalanx. No evidence of acute osteomyelitis. JOINTS: No effusions. SOFT TISSUES: Vascular calcifications. OTHER: No other significant finding. IMPRESSION: No evidence of osteomyelitis. TECHNICAL DOCUMENTATION: JOB ID: [id number] [employer]- All Rights Reserved Reading location - IP/workstation name: [email or web address]
--- NOTE | 2017-10-14 12:37 | ER Document Report ---
ED General - General Chief Complaint: Foot Pain Stated Complaint: TOE PAIN Time Seen by Provider: 10/14/17 10:54 Mode of Arrival: Wheelchair TRAVEL OUTSIDE OF THE [place] IN LAST 30 DAYS: No - HPI Notes: Patient is a 62-year-old male with a history of diabetes, peripheral vascular disease, chronic kidney disease and on dialysis (Thursday//Thursday), right BKA, and previous great toe removal on the left who presents to the ED for evaluation for a necrotic appearing left fifth digit of his foot as evaluated by wound clinic today. Patient states that he went for his first visit today and they noticed his toe and wanted him to come to the ED for evaluation. Patient states that it has been like this for a couple weeks. Patient states that he has had a decreased p.o. intake over the last few days. His last dialysis session was yesterday and was a complete session without any complications. Patient states that he is urinating normally and having normal bowel movements. Denies any drug allergies. Denies any headache, fever, URI, sore throat, chest pain, palpitations, syncope, cough, shortness of breath, wheeze, dyspnea, abdominal pain, nausea/vomiting/diarrhea, urinary retention, dysuria, hematuria, loss of control of bowel or bladder, or rash. - Related Data Allergies/Adverse Reactions: No Known Allergies Allergy (Verified 10/14/17 10:07) Past Medical History - General Information source: Patient - Social History Smoking Status: Never Smoker Chew tobacco use (# tins/day): No Frequency of alcohol use: None Drug Abuse: None Family History: Reviewed & Not Pertinent, CAD, Hyperlipidemia, Hypertension Patient has suicidal ideation: No Patient has homicidal ideation: No - Past Medical History Cardiac Medical History: Reports: Hx Congestive Heart Failure - Diastolic, Hx Coronary Artery Disease, Hx Hypercholesterolemia, Hx Hypertension Denies: Hx Heart Attack Pulmonary Medical History: Reports: Hx Asthma, Hx COPD, Hx Pneumonia - 2014, Hx Sleep Apnea Denies: Hx Bronchitis, Hx Tuberculosis Neurological Medical History: Denies: Hx Cerebrovascular Accident, Hx Seizures Endocrine Medical History: Reports: Hx Diabetes Mellitus Type 2 Renal/ Medical History: Reports: Hx End Stage Renal Disease, Hx Peritoneal Dialysis, Hx Renal Insufficiency. Denies: Hx Hemodialysis GI Medical History: Reports: Hx Gastroesophageal Reflux Disease Musculoskeletal Medical History: Denies Hx Arthritis Skin Medical History: Reports Hx Cellulitis - LOWER EXTREMITY OSTEO LEFT FOOT Psychiatric Medical History: Denies: Hx Depression Past Surgical History: Reports: Hx Cardiac Catheterization - Cardiac catheterization few months ago showed mild CAD., Hx Orthopedic Surgery - Left big toe amputation, knee arthroscopy, Hx Vascular Surgery - Left forearm AV fistula, Other - Bilateral cataract extraction - Immunizations Hx Diphtheria, Pertussis, Tetanus Vaccination: Yes Hx Pneumococcal Vaccination: 01/19/12 Review of Systems - Review of Systems -: Yes All other systems reviewed and negative Physical Exam - Vital signs Vitals: Temp Pulse Resp BP Pulse Ox 99.2 F 100 18 118/62 100 10/14/17 10:31 10/14/17 10:10/14/17 10:10/14/17 10:10/14/17 10:31 - Notes Notes: PHYSICAL EXAMINATION: GENERAL: Well-appearing, well-nourished and in no acute distress. LUNGS: Breath sounds clear to auscultation bilaterally and equal. No wheezes rales or rhonchi. HEART: Regular rate and rhythm without murmurs, rubs, gallops. Musculoskeletal: Lt foot: + excised 1st digit. + necrotic 5th digit. FROM to passive/active. Strength 5+/5. No bony tenderness of the foot. Decreased sensation and peripheral pulses to the left foot. Extremities: see above. NEUROLOGICAL: see above. PSYCH: Normal mood, normal affect. SKIN: see above. Course - Re-evaluation Re-evalutation: 10/14/17 12:[address] Sahu who eval'd the patient. He recommends admit to hospitalist and he will consult and try to remove the toe today if able. 10/14/17 13:49 We have been having difficulty obtaining blood from this patient and lab was notified. The general surgeon has an opening for surgery and would like to take him prior to lab results being obtained. He still requests a medical admission and I did speak with the hospitalist, Dr. Mayen, who accepted patient to medical floor. Pt in agreement with plan. Vitals are acceptable at this time. Patient has no new concerns or complaints. - Vital Signs Vital signs: Temp Pulse Resp BP Pulse Ox 99.2 F 100 18 118/62 100 10/14/17 10:31 10/14/17 10:31 10/14/17 10:31 10/14/17 10:31 10/14/17 10:31 Discharge - Discharge Clinical Impression: Necrosis of toe Condition: Stable Disposition: ADMITTED INPATIENT Admitting Provider: Hospitalist - Dr. Mayen Unit Admitted: Medical Floor Referrals: JULIANA SANDRA MD [Primary Care Provider] - Follow up as needed
--- NOTE | 2017-10-14 13:13 | PDOC CONSULTATION ---
Consultation Consult Date: 10/14/17 Consult reason:: Wet gangrene left fifth toe History of Present Illness Admission Date/PCP: JULIANA SANDRA MD History of Present Illness: DIANELYS MARTINEZ is a 62 year old male seen in consultation at the request of the emergency room physician. This is a patient with long-standing history of diabetes, peripheral vascular disease, and renal failure. The patient has necrosis/weeping of the fifth toe. This is been progressive over the last several weeks. Patient called the wound care center today for medical advice, and was directed to the emergency department. Nothing makes his symptoms better or worse. Patient denies any fevers or chills. Does report foul smell from the left foot, discoloration of the skin, malaise, and nausea. The patient also denies chest pain, shortness of breath, melena, hematochezia, abdominal pain, dizziness, orthostasis, headache. Past Medical History Cardiac Medical History: Reports: Congestive Heart Failure - Diastolic, Coronary Artery Disease, Hyperlipidema, Hypertension Denies: Myocardial Infarction Pulmonary Medical History: Reports: Asthma, Chronic Obstructive Pulmonary Disease (COPD), Pneumonia - 2014, Sleep Apnea Denies: Bronchitis, Tuberculosis Neurological Medical History: Denies: Seizures Endocrine Medical History: Reports: Diabetes Mellitus Type 2 Renal/ Medical History: Reports: End Stage Renal Disease GI Medical History: Reports: Gastroesophageal Reflux Disease Musculoskeltal Medical History: Denies: Arthritis Psychiatric Medical History: Denies: Depression Hematology: Denies: Anemia Past Surgical History Past Surgical History: Reports: Cardiac Catheterization - Cardiac catheterization few months ago showed mild CAD., Orthopedic Surgery - Left big toe amputation, knee arthroscopy, Vascular Surgery - Left forearm AV fistula, Other - Bilateral cataract extraction, below-knee amputation on the right. Social History Smoking Status: Never Smoker Frequency of Alcohol Use: None Hx Recreational Drug Use: No Hx Prescription Drug Abuse: No Family History Family History: Reviewed & Not Pertinent, CAD, Hyperlipidemia, Hypertension Parental Family History Reviewed: Yes Children Family History Reviewed: Yes Sibling(s) Family History Reviewed.: Yes Medication/Allergy Home Medications: Amlodipine Besylate [Norvasc 10 mg Tablet] 10 mg PO DAILY 05/05/16 Aspirin [Aspirin 81 mg Chewable Tablet] 81 mg PO DAILY 05/05/16 Brimonidine Tartrate/Timolol [Combigan 0.2%-0.5% Eye Drops] 5 ml OD BID Calcium Carbonate [Tums Chewable 500 mg Tab.chew] 1,000 mg PO DAILY 05/05/16 Carvedilol [Coreg 12.5 mg Tablet] 12.5 mg PO Q12 05/05/16 Cetirizine HCl [Zyrtec 10 mg Tablet] 1 tab PO QHS 05/05/16 Cholecalciferol (Vitamin D3) [Vitamin D3 1000 Unit Tablet] 1,000 unit PO BID Clonidine HCl [Catapres 0.2 mg Tablet] 0.2 mg PO Q12 05/05/16 Docusate Sodium [Colace 100 mg Capsule] 200 mg PO DAILY 05/05/16 Folic Acid/Vitamin B Comp W-C [Nephrocaps Multiple Vitamin Capsule] 1 cap PO DAILY 05/05/16 Furosemide [Lasix] 40 mg PO Q8 05/05/16 Hydralazine HCl [Apresoline 25 mg Tablet] 25 mg PO Q8 05/05/16 Insulin Glargine,Hum.rec.anlog [Lantus Insulin 100 Unit/1 ml 10 ml] 35 unit SUBCUT QHS 05/05/16 Latanoprost [Xalatan 0.005% Oph Soln 2.5 ml] 1 drop OD QHS 05/05/16 Metolazone [Zaroxolyn 5 Mg Tablet] 5 mg PO DAILY 05/05/16 Multivitamin [Tab-A-Jose] 1 each PO DAILY 05/05/16 Sevelamer Carbonate [Renvela] 1,600 mg PO ASDIR 05/05/16 Sevelamer Carbonate [Renvela] 2,400 mg PO MEALS 05/05/16 Tramadol HCl [Ultram 50 mg Tablet] 50 mg PO BIDP PRN 05/05/16 Allergies/Adverse Reactions: No Known Allergies Allergy (Verified 10/14/17 10:07) Review of Systems Constitutional: ABSENT: chills, fever(s) Eyes: ABSENT: visual disturbances Nose, Mouth, and Throat: ABSENT: sore throat Cardiovascular: ABSENT: chest pain Respiratory: ABSENT: cough, dyspnea Gastrointestinal: PRESENT: nausea. ABSENT: abdominal pain, bloating Musculoskeletal: ABSENT: back pain Integumentary: PRESENT: wounds, other - Necrotic left fifth toe Neurological: PRESENT: numbness - Related to diabetic neuropathy. ABSENT: confusion, convulsions, memory loss Psychiatric: ABSENT: anxiety, depression Endocrine: ABSENT: cold intolerance, heat intolerance Hematologic/Lymphatic: ABSENT: easy bleeding, easy bruising Physical Exam Vital Signs: Temp Pulse Resp BP Pulse Ox 99.2 F 100 18 118/62 100 10/14/17 10:31 10/14/17 10:31 10/14/17 10:31 10/14/17 10:31 10/14/17 10:31 Intake & Output 10/13/17 10/14/17 10/15/17 06:59 06:59 06:59 Weight 106.3 kg General appearance: PRESENT: no acute distress Head exam: PRESENT: atraumatic, normocephalic Eye exam: PRESENT: EOMI, PERRLA. ABSENT: scleral icterus Mouth exam: PRESENT: neck supple Neck exam: ABSENT: meningismus, tenderness, thyromegaly, tracheal deviation Respiratory exam: PRESENT: clear to auscultation césar, unlabored. ABSENT: accessory muscle use, tachypnea, wheezes Cardiovascular exam: PRESENT: RRR Vascular exam: PRESENT: other - Left AV fistula with thrill present. GI/Abdominal exam: PRESENT: soft. ABSENT: distended, firm, tenderness Rectal exam: PRESENT: deferred Extremities exam: ABSENT: clubbing Musculoskeletal exam: PRESENT: other - Is post right BKA and left great toe amputation. Neurological exam: PRESENT: alert, awake, oriented to person, oriented to place , oriented to time, CN II-XII grossly intact Psychiatric exam: ABSENT: agitated, anxious, depressed Focused psych exam: ABSENT: delusional Skin exam: PRESENT: other - Wet gangrene of the left fifth toe Results Impressions: Foot X-Ray 10/14/17 10:55 IMPRESSION: No evidence of osteomyelitis. 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 The patient does not appear to be systemically toxic, however lab work is still pending. Patient has multiple medical issues. The patient will require left fifth toe amputation, hopefully to be done today. I will check peripheral arterial duplexes, to identify any significant vascular stenosis. The patient may require vascular intervention to facilitate healing. Recommend medical admission due to the patient's numerous, severe medical issues. Will follow.
[2017-10-14] MEDS ORDERED: BUPIVACAINE HCL 0.5 % INJ/PF 30 ML SDV ONE (13:15)
[2017-10-14] MEDS ORDERED: FENTANYL CITRATE INJ/PF 100 MCG/2 ML AMPUL ONE (13:16)
[2017-10-14] MEDS ORDERED: MIDAZOLAM 2 MG/2 ML INJ ONE (13:16)
[2017-10-14] MEDS ORDERED: PROPOFOL INJ 200 MG/20 ML VIAL IV ONE (13:17)
[2017-10-14] MEDS ORDERED: CEFAZOLIN INJ 1 GM VIAL ONE (14:19)
[2017-10-14] MEDS ORDERED: DIPHENHYDRAMINE HCL 50 MG/ML VIAL IV PRN (14:33)
[2017-10-14] MEDS ORDERED: OXYCODONE-ACETAMINOPHEN 5-325 MG TABLET PO PRN ×2 (14:33)
[2017-10-14] MEDS ORDERED: PROMETHAZINE HCL INJ 25 MG/1 ML VIAL IV PRN ×2 (14:33)
[2017-10-14] MEDS ORDERED: MEPERIDINE HCL/PF INJ 25 MG/1 ML DISP.SYRIN IV PRN (14:33)
[2017-10-14] MEDS ORDERED: FENTANYL CITRATE INJ/PF 100 MCG/2 ML AMPUL IV PRN ×3 (14:33)
--- NOTE | 2017-10-14 15:12 | Operative Report ---
Nonrecallable Operative Report DATE OF SURGERY: 10/14/17 PREOPERATIVE DIAGNOSIS: Wet gangrene of the left fifth toe and foot POSTOPERATIVE DIAGNOSIS: Same as above OPERATION: 1. Amputation of the left fifth toe. 2. Sharp, excisional debridement of infected skin, fatty soft tissue, tendon, muscle, and bone of the left lateral foot. SURGEON: HUY REYNOLDS ANESTHESIA: LMAC TISSUE REMOVED OR ALTERED: Left fifth toe and portion of the left lateral foot COMPLICATIONS: Extensive necrosis of the left lateral foot requiring wide debridement ESTIMATED BLOOD LOSS: Minimal PROCEDURE: Drains/implants: 4 x 4 gauze soaked in Betadine. Procedure in detail: After informed consent was obtained, the patient was laid in the supine position in the operating room. The area of the left foot was prepped and draped in a normal sterile fashion. A 15 blade scalpel was used to incise the area around the base of the left fifth toe. There was necrotic tissue present all the way to the bone. Further debridement would be required. Wider debridement was then carried medially towards the fourth toe and proximally toward the midfoot. The total debrided area measured 5 cm x 8 cm. The skin, fatty soft tissue, tendon, muscle, and bone were excised sharply with a 15 blade scalpel and large bone cutters. After all obviously necrotic tissue was debrided away, a Betadine soaked dressing was placed. The foot was then wrapped in Kerlix, and the procedure was concluded. All sponge, instrument, and needle counts were correct 2. Condition: Fair.
[2017-10-14 16:52] LABS: HEMATOCRIT 27.1 % (37.9-51.0); HEMOGLOBIN 8.8 g/dL (13.5-17.0); MEAN CORPUSCULAR HEMOGLOBIN 30.5 pg (27.0-33.4); MEAN CORPUSCULAR HGB CONC 32.6 g/dL (32.0-36.0); MEAN CORPUSCULAR VOLUME 94 fl (80-97); PLATELET COUNT 312 10^3/uL (150-450); RED CELL DISTRIBUTION WIDTH 15.8 % (11.5-14.0); WHITE BLOOD COUNT 24.7 10^3/uL (4.0-10.5)
[2017-10-14 17:06] LABS: ALANINE AMINOTRANSFERASE 37 U/L (21-72); ALBUMIN 3.6 g/dL (3.5-5.0); ALKALINE PHOSPHATASE 77 U/L (38-126); ASPARTATE AMINO TRANSFERASE 73 U/L (17-59); BILIRUBIN,DIRECT 0.6 mg/dL (0.0-0.4); BILIRUBIN,TOTAL 0.7 mg/dL (0.2-1.3); BLOOD UREA NITROGEN 48 mg/dL (7-20); GLUCOSE 251 mg/dL (75-110); POTASSIUM 4.3 mmol/L (3.6-5.0); TOTAL PROTEIN 7.5 g/dL (6.3-8.2)
[2017-10-14 17:08] LABS: CARBON DIOXIDE 27 mmol/L (22-30); CHLORIDE 91 mmol/L (98-107); SODIUM 136.9 mmol/L (137-145)
[2017-10-14 17:09] LABS: ANION GAP 19 (5-19)
[2017-10-14 17:13] LABS: ABSOLUTE LYMPHOCYTES# (MANUAL) 1.7 10^3/uL (0.5-4.7); ABSOLUTE MONOCYTES # (MANUAL) 2.7 10^3/uL (0.1-1.4); ANISOCYTOSIS SLIGHT; BASOPHILS % (MANUAL) 0 % (0-2); EOSINOPHILS % (MANUAL) 1 % (0-6); LYMPHOCYTES % (MANUAL) 7 % (13-45); MONOCYTES % (MANUAL) 11 % (3-13); SEGMENTED NEUTROPHILS % (MAN) 81 % (42-78); TOTAL CELLS COUNTED 100; TOXIC GRANULATION SLIGHT
[2017-10-14 17:14] LABS: PLATELET COMMENT ADEQUATE
[2017-10-14] MEDS ORDERED: HYDROCODONE/ACETAMINOPHEN 10-325 MG TABLET PO PRN (17:25)
[2017-10-14] MEDS ORDERED: ONDANSETRON HCL INJ/PF 4 MG/2 ML SDV IV PRN (17:25)
[2017-10-14 17:32] LABS: C-REACTIVE PROTEIN 598.6 mg/L (<10.0)
[2017-10-14] MEDS ORDERED: DEXTROSE 50%-WATER 25 GM/50 ML DISP.SYRIN IV PRN ×2 (22:02)
[2017-10-14] MEDS ORDERED: ONDANSETRON 4 MG TAB.RAPDIS PO PRN (22:02)
[2017-10-14] MEDS ORDERED: GLUCAGON,HUMAN RECOMB 1 MG INJ IM PRN (22:02)
[2017-10-14] MEDS ORDERED: DEXTROSE 40% GEL 15 GM TUBE PO PRN ×2 (22:02)
--- NOTE | 2017-10-14 22:02 | PDOC H&P ---
History of Present Illness Admission Date/PCP: 10/14/17 13:51 JULIANA SANDRA MD Patient complains of: Left Great Toe Necrosis History of Present Illness: DIANELYS MARTINEZ is a 62 year old male with history of diabetes PVD chronic kidney disease on hemodialysis Thursday history of right BKA and previous great toe removal. Patient presented to ED for evaluation of necrotic appearing left fifth digit of 1 week duration. Patient denies any pain or any chest pain however he complains of fever, chills. Denies any nausea vomiting abdominal pain diarrhea constipation or any urinary symptoms. Patient is a status post left great toe amputation per general surgery. Hospitalist was consulted for admission for medical management. Past Medical History Cardiac Medical History: Reports: Congestive Heart Failure - Diastolic, Coronary Artery Disease, Hyperlipidema, Hypertension Denies: Myocardial Infarction Pulmonary Medical History: Reports: Asthma, Chronic Obstructive Pulmonary Disease (COPD), Pneumonia - 2013, Sleep Apnea Denies: Bronchitis, Tuberculosis Neurological Medical History: Denies: Seizures Endocrine Medical History: Reports: Diabetes Mellitus Type 2 Renal/ Medical History: Reports: End Stage Renal Disease GI Medical History: Reports: Gastroesophageal Reflux Disease Musculoskeltal Medical History: Denies: Arthritis Psychiatric Medical History: Denies: Depression Hematology: Denies: Anemia Past Surgical History Past Surgical History: Reports: Cardiac Catheterization - Cardiac catheterization few months ago showed mild CAD., Orthopedic Surgery - Left big toe amputation, knee arthroscopy, Vascular Surgery - Left forearm AV fistula, Other - Bilateral cataract extraction Social History Smoking Status: Never Smoker Frequency of Alcohol Use: None Hx Recreational Drug Use: No Drugs: None Hx Prescription Drug Abuse: No - Advance Directive Resuscitation Status: Full Code Family History Family History: Reviewed & Not Pertinent, CAD, Hyperlipidemia, Hypertension Parental Family History Reviewed: Yes Children Family History Reviewed: Yes Sibling(s) Family History Reviewed.: Yes Medication/Allergy Home Medications: B Complex W-C No.20/Folic Acid [Renal Caps Softgel] 1 mg PO DAILY 10/14/17 Benzonatate [Tessalon Perle 100 mg Capsule] 100 mg PO Q8 10/14/17 Furosemide [Lasix 40 mg Tablet] 40 mg PO SUMOWEFR@1000 10/14/17 Gabapentin [Neurontin 100 mg Capsule] 100 mg PO Q8 10/14/17 Hydralazine HCl [Apresoline 25 mg Tablet] 25 mg PO TUTHSA@1000,2200 10/14/17 Insulin Glargine,Hum.rec.anlog [Basaglar Kwikpen U-100] 35 unit SQ DAILY Lidocaine/Prilocaine [Emla Cream] 30 gm TP .BEFORE DIALYSIS 10/14/17 Metolazone [Zaroxolyn 5 Mg Tablet] 5 mg PO SUMOWEFR@1000 10/14/17 Midodrine HCl 10 mg PO .BEFORE DIALYSIS 10/14/17 Omeprazole 40 mg PO DAILY 10/14/17 Sevelamer Carbonate [Renvela] 1,600 mg PO .WITH SNACKS 10/14/17 Sevelamer Carbonate [Renvela] 2,400 mg PO MEALS 10/14/17 Sildenafil Citrate [Viagra] 50 mg PO DAILYP PRN 10/14/17 Allergies/Adverse Reactions: No Known Allergies Allergy (Verified 10/14/17 10:07) Review of Systems Constitutional: ABSENT: chills, fever(s), headache(s), weight gain, weight loss Eyes: ABSENT: visual disturbances Ears: ABSENT: hearing changes Cardiovascular: ABSENT: chest pain, dyspnea on exertion, edema, orthropnea, palpitations Respiratory: ABSENT: cough, hemoptysis Gastrointestinal: ABSENT: abdominal pain, constipation, diarrhea, hematemesis, hematochezia, nausea, vomiting Genitourinary: ABSENT: dysuria, hematuria Musculoskeletal: ABSENT: joint swelling Integumentary: ABSENT: rash, wounds Neurological: ABSENT: abnormal gait, abnormal speech, confusion, dizziness, focal weakness, syncope Psychiatric: ABSENT: anxiety, depression, homidical ideation, suicidal ideation Endocrine: ABSENT: cold intolerance, heat intolerance, polydipsia, polyuria Hematologic/Lymphatic: ABSENT: easy bleeding, easy bruising Physical Exam Vital Signs: Temp Pulse Resp BP Pulse Ox 98.6 F 84 17 115/51 L 100 10/14/17 18:00 10/14/17 18:00 10/14/17 18:00 10/14/17 18:00 10/14/17 18:00 Intake & Output 10/13/17 10/14/17 10/15/17 06:59 06:59 06:59 Intake Total 550 Output Total 0 Balance 550 Weight 106 kg General appearance: PRESENT: no acute distress, well-developed, well-nourished Head exam: PRESENT: atraumatic, normocephalic Eye exam: PRESENT: conjunctiva pink, EOMI, PERRLA. ABSENT: scleral icterus Ear exam: PRESENT: normal external ear exam Mouth exam: PRESENT: moist, tongue midline Neck exam: ABSENT: carotid bruit, JVD, lymphadenopathy, thyromegaly Respiratory exam: PRESENT: clear to auscultation césar. ABSENT: rales, rhonchi, wheezes Cardiovascular exam: PRESENT: RRR. ABSENT: diastolic murmur, rubs, systolic murmur Pulses: PRESENT: normal dorsalis pedis pul Vascular exam: PRESENT: normal capillary refill GI/Abdominal exam: PRESENT: normal bowel sounds, soft. ABSENT: distended, guarding, mass, organolmegaly, rebound, tenderness Rectal exam: PRESENT: deferred Extremities exam: PRESENT: full ROM, other - Pt is s/p Lt Great Toe Ampuation. Pt has a dressing, unable to examine. No TTP .. ABSENT: calf tenderness, clubbing, pedal edema Neurological exam: PRESENT: alert, awake, oriented to person, oriented to place , oriented to time, oriented to situation, CN II-XII grossly intact. ABSENT: motor sensory deficit Psychiatric exam: PRESENT: appropriate affect, normal mood. ABSENT: homicidal ideation, suicidal ideation Skin exam: PRESENT: dry, intact, warm. ABSENT: cyanosis, rash Results Laboratory Results: 10/14/17 16:34 10/14/17 16:34 10/14/17 10/14/17 10/14/17 16:34 16:34 16:34 WBC 24.7 H RBC 2.90 L Hgb 8.8 L Hct 27.1 L MCV 94 MCH 30.5 MCHC 32.6 RDW 15.8 H Plt Count 312 Seg Neutrophils % Not Reportable Lymphocytes % Not Reportable Monocytes % Not Reportable Eosinophils % Not Reportable Basophils % Not Reportable Absolute Neutrophils Not Reportable Absolute Lymphocytes Not Reportable Absolute Monocytes Not Reportable Absolute Eosinophils Not Reportable Absolute Basophils Not Reportable Sodium 136.9 L Potassium 4.3 Chloride 91 L Carbon Dioxide 27 Anion Gap 19 BUN 48 H Creatinine 11.24 H Est GFR ( Amer) 6 L Est GFR (Non-Af Amer) 5 L Glucose 251 H Lactic Acid 1.2 Calcium 9.0 Total Bilirubin 0.7 AST 73 H ALT 37 Alkaline Phosphatase 77 C-Reactive Protein 598.6 H Total Protein 7.5 Albumin 3.6 Impressions: Foot X-Ray 10/14/17 10:55 IMPRESSION: No evidence of osteomyelitis. Assessment & Plan - Diagnosis (1) Diabetic wet gangrene of the foot Is this a current diagnosis for this admission?: Yes Plan: Status post amputation. Pain management. Follow-up culture (2) Anemia Is this a current diagnosis for this admission?: Yes Plan: Likely due to CKD will monitor H&H and transfuse as needed (3) ESRD (end stage renal disease) Is this a current diagnosis for this admission?: Yes Plan: We will monitor electrolytes and volume status. Patient's tank pumper was consulted. (4) Hypertension Qualifiers: Hypertension type: essential hypertension Qualified Code(s): I10 - Essential (primary) hypertension Is this a current diagnosis for this admission?: Yes Plan: Normotensive euvolemic. Will restart home medication and adjust dosage as needed.
[2017-10-14] MEDS ORDERED: SILDENAFIL CITRATE 50 MG PO PRN (22:12)
[2017-10-14] MEDS ORDERED: SEVELAMER HCL 800 MG TABLET PO PRN (23:15)
[2017-10-15] MEDS: BENZONATATE 100 MG CAPSULE PO SCH ×3 (05:53→22:09)
[2017-10-15] MEDS: GABAPENTIN 100 MG CAPSULE PO SCH ×3 (05:53→22:09)
[2017-10-15] MEDS: INSULIN LISPRO 100 UNIT/ML 3 ML VIAL SUBCUT PRN ×4 (06:33→22:26)
[2017-10-15] MEDS: SEVELAMER HCL 800 MG TABLET PO SCH ×3 (08:11→15:47)
--- NOTE | 2017-10-15 09:19 | PDOC PROGRESS REPORT ---
Subjective Progress Note for:: 10/15/17 Subjective:: No complaints Reason For Visit: LT GREAT TOE GANGRENE Physical Exam Vital Signs: Temp Pulse Resp BP Pulse Ox 99.3 F 90 20 119/56 L 100 10/15/17 00:00 10/15/17 00:00 10/15/17 00:00 10/15/17 00:00 10/15/17 00:00 Intake & Output 10/14/17 10/15/17 10/16/17 06:59 06:59 06:59 Intake Total 550 Output Total 0 Balance 550 Weight 104.3 kg Musculoskeletal exam: PRESENT: other - Foot wound appears very clean with no necrotic debris and no purulent drainage no surrounding erythema. Foot is warm. Patient's other toes did not demonstrate ischemic changes. Pedal pulses are not palpable however. Results Laboratory Results: 10/14/17 16:34 10/14/17 16:34 10/14/17 10/14/17 10/14/17 16:34 16:34 16:34 WBC 24.7 H RBC 2.90 L Hgb 8.8 L Hct 27.1 L MCV 94 MCH 30.5 MCHC 32.6 RDW 15.8 H Plt Count 312 Seg Neutrophils % Not Reportable Lymphocytes % Not Reportable Monocytes % Not Reportable Eosinophils % Not Reportable Basophils % Not Reportable Absolute Neutrophils Not Reportable Absolute Lymphocytes Not Reportable Absolute Monocytes Not Reportable Absolute Eosinophils Not Reportable Absolute Basophils Not Reportable Sodium 136.9 L Potassium 4.3 Chloride 91 L Carbon Dioxide 27 Anion Gap 19 BUN 48 H Creatinine 11.24 H Est GFR ( Amer) 6 L Est GFR (Non-Af Amer) 5 L Glucose 251 H Lactic Acid 1.2 Calcium 9.0 Total Bilirubin 0.7 AST 73 H ALT 37 Alkaline Phosphatase 77 C-Reactive Protein 598.6 H Total Protein 7.5 Albumin 3.6 Impressions: Foot X-Ray 10/14/17 10:55 IMPRESSION: No evidence of osteomyelitis. Assessment & Plan - Diagnosis (1) Diabetic wet gangrene of the foot Is this a current diagnosis for this admission?: Yes Plan: Status post toe amputation and debridement. Wound looks good. Will start wet- to-dry dressing changes. If continuing to improve will plan wound VAC later in the hospital stay. Await noninvasive vascular studies.
[2017-10-15] MEDS ORDERED: INSULIN GLARGINE,HUM.REC.ANLOG 1,000 UNIT/10 ML UNIT SUBCUT ONE (11:25)
[2017-10-15] MEDS ORDERED: CEFTRIAXONE INJ 500 MG VIAL IM SCH (11:30)
[2017-10-15] MEDS: HYDRALAZINE HCL 25 MG TABLET PO SCH ×2 (11:31→22:10)
[2017-10-15] MEDS: FOLIC ACID/VITAMIN B COMP W-C CAPSULE PO SCH (11:31)
[2017-10-15] MEDS: LANSOPRAZOLE 30 MG TAB.RAP.DR PO SCH (11:31)
[2017-10-15] MEDS: ENOXAPARIN SODIUM INJ 40 MG/0.4 ML DISP.SYRIN SUBCUT SCH (11:32)
[2017-10-15] MEDS: INSULIN GLARGINE,HUM.REC.ANLOG 300 UNIT/3 ML INSULN.PEN SUBCUT SCH (11:38)
--- NOTE | 2017-10-15 15:00 | XCELERA REPORT ---
[address] [address] Lower Extremity Arterial Evaluation Name: DIANELYS MARTINEZ Age: 62 yrs Gender: Male : 1955 Patient Status: Inpatient Patient Location: [place] [address]^A Study Date: 10/14/2017 01:35 PM Procedure: A color flow and duplex scan of the lower extremity arteries was performed on the left with velocity and waveform anaylsis. Reason For Study: E Ordering Physician: ANTOINETTE FORMAN PA-C Performed By: Jenni Xavier Measurements and Calculations Right Left SEAM STAYER PSV 148.0 cm/sec Prox PFA PSV -201.1cm/sec Prox SFA PSV -74.3 cm/sec Mid SFA PSV -73.3 cm/sec Dist SFA PSV -88.4 cm/sec Prox Pop A PSV 99.7 cm/sec Dist MAGGY PSV 34.5 cm/sec Prox ROUTE DELIVERY CLERK PSV 34.0 cm/sec Dist ROUTE DELIVERY CLERK PSV 18.2 cm/sec Toney Pedis PSV 25.5 cm/sec Left Side Arterial Evaluation Normal velocity and triphasic waveforms noted in the Common Femoral artery. Monophasic from Popliteal to the infrageniculate vessels, with reduced velocities. Biphasic in the Deep Femoral. 50-99% stenosis at the Femoral artery. Ankle Brachial index not done due to pain.. Interpretation Summary Severe hemodynamically significant lesions in the left lower extremity only, on duplex imaging, at rest. : ANTOINETTE FORMAN PA-C > Inder Kapoor
--- NOTE | 2017-10-15 15:05 | PDOC CONSULTATION ---
Consultation Consult Date: 10/15/17 Consult reason:: ESRD History of Present Illness Admission Date/PCP: 10/14/17 13:51 JULIANA SANDRA MD History of Present Illness: Currently Dr. Urban and I are covering for Dr. Ivory. DIANELYS MARTINEZ is a 62 year old male with history of diabetes, PVD, ESRD on HD TTS, history of right BKA and previous great toe removal. Patient was sent to the ED from wound care after having found a necrotic left fifth digit on the foot. He was seen by joel and had his amputation of the 5th digit on his left foot. Upon examination the patient was sitting comfortably in his bed. He was on oxygen at the time but said that he did not feel short of breath. He denied chest pain, n/v/d/c, fevers or chills. Past Medical History Cardiac Medical History: Reports: CHF-Diastolic, Coronary Artery Disease, Hyperlipidemia Denies: Myocardial Infarction Pulmonary Medical History: Reports: Asthma, Chronic Obstructive Pulmonary Disease (COPD), Pneumonia - 2013, Sleep Apnea Denies: Bronchitis, Tuberculosis Neurological Medical History: Denies: Seizures Endocrine Medical History: Reports: Diabetes Mellitus Type 2 Renal/ Medical History: Reports: End Stage Renal Disease, Hyperphosphatemia GI Medical History: Reports: Gastroesophageal Reflux Disease Musculoskeltal Medical History: Denies: Arthritis Psychiatric Medical History: Denies: Depression Past Surgical History Past Surgical History: Reports: Cardiac Catheterization - Cardiac catheterization few months ago showed mild CAD., Dialysis Access Surgery AVF, Orthopedic Surgery - Left big toe amputation, knee arthroscopy, Vascular Surgery - Left forearm AV fistula, Other - Bilateral cataract extraction Social History Smoking Status: Never Smoker Frequency of Alcohol Use: None Hx Recreational Drug Use: No Drugs: None Hx Prescription Drug Abuse: No - Advance Directive Resuscitation Status: Full Code Family History Parental Family History Reviewed: No Children Family History Reviewed: NA Sibling(s) Family History Reviewed.: NA Medication/Allergy Home Medications: B Complex W-C No.20/Folic Acid [Renal Caps Softgel] 1 mg PO DAILY 10/14/17 Benzonatate [Tessalon Perle 100 mg Capsule] 100 mg PO Q8 10/14/17 Furosemide [Lasix 40 mg Tablet] 40 mg PO SUMOWEFR@1000 10/14/17 Gabapentin [Neurontin 100 mg Capsule] 100 mg PO Q8 10/14/17 Hydralazine HCl [Apresoline 25 mg Tablet] 25 mg PO TUTHSA@1000,2200 10/14/17 Insulin Glargine,Hum.rec.anlog [Gentry Lagunas U-100] 35 unit SQ DAILY Lidocaine/Prilocaine [Emla Cream] 30 gm TP .BEFORE DIALYSIS 10/14/17 Metolazone [Zaroxolyn 5 Mg Tablet] 5 mg PO SUMOWEFR@1000 10/14/17 Midodrine HCl 10 mg PO .BEFORE DIALYSIS 10/14/17 Omeprazole 40 mg PO DAILY 10/14/17 Sevelamer Carbonate [Renvela] 1,600 mg PO .WITH SNACKS 10/14/17 Sevelamer Carbonate [Renvela] 2,400 mg PO MEALS 10/14/17 Sildenafil Citrate [Viagra] 50 mg PO DAILYP PRN 10/14/17 Allergies/Adverse Reactions: No Known Allergies Allergy (Verified 10/14/17 10:07) Review of Systems Constitutional: ABSENT: chills, fever(s), weakness Cardiovascular: ABSENT: chest pain, dyspnea on exertion, edema Respiratory: ABSENT: cough, dyspnea Gastrointestinal: ABSENT: abdominal pain, constipation, diarrhea, nausea, vomiting Genitourinary: ABSENT: difficulty urinating, dysuria Musculoskeletal: PRESENT: deformity, joint swelling Neurological: PRESENT: numbness Physical Exam Vital Signs: Temp Pulse Resp BP Pulse Ox 98.9 F 85 19 145/54 H 100 10/15/17 12:00 10/15/17 12:00 10/15/17 12:00 10/15/17 12:00 10/15/17 12:00 Intake & Output 10/14/17 10/15/17 10/16/17 06:59 06:59 06:59 Intake Total 550 Output Total 0 Balance 550 Weight 104.3 kg General appearance: PRESENT: no acute distress, well-developed, well-nourished, other - -on oxygen via nc Mouth exam: PRESENT: moist, neck supple Neck exam: PRESENT: full ROM. ABSENT: JVD Respiratory exam: PRESENT: clear to auscultation césar. ABSENT: crackles, rales, rhonchi, wheezes Cardiovascular exam: PRESENT: RRR, +S1, +S2 Extremities exam: PRESENT: pedal edema - -trace/1+. ABSENT: tenderness Musculoskeletal exam: PRESENT: deformity. ABSENT: normal inspection, tenderness Neurological exam: PRESENT: alert, awake, oriented to person, oriented to place , oriented to time, oriented to situation Psychiatric exam: PRESENT: appropriate affect, normal mood Skin exam: PRESENT: dry, intact, warm Results Laboratory Results: 10/14/17 16:34 10/14/17 16:34 10/14/17 10/14/17 10/14/17 16:34 16:34 16:34 WBC 24.7 H RBC 2.90 L Hgb 8.8 L Hct 27.1 L MCV 94 MCH 30.5 MCHC 32.6 RDW 15.8 H Plt Count 312 Seg Neutrophils % Not Reportable Lymphocytes % Not Reportable Monocytes % Not Reportable Eosinophils % Not Reportable Basophils % Not Reportable Absolute Neutrophils Not Reportable Absolute Lymphocytes Not Reportable Absolute Monocytes Not Reportable Absolute Eosinophils Not Reportable Absolute Basophils Not Reportable Sodium 136.9 L Potassium 4.3 Chloride 91 L Carbon Dioxide 27 Anion Gap 19 BUN 48 H Creatinine 11.24 H Est GFR ( Amer) 6 L Est GFR (Non-Af Amer) 5 L Glucose 251 H Lactic Acid 1.2 Calcium 9.0 Total Bilirubin 0.7 AST 73 H ALT 37 Alkaline Phosphatase 77 C-Reactive Protein 598.6 H Total Protein 7.5 Albumin 3.6 Impressions: Foot X-Ray 10/14/17 10:55 IMPRESSION: No evidence of osteomyelitis. Assessment & Plan - Diagnosis (1) Diabetic wet gangrene of the foot Is this a current diagnosis for this admission?: Yes Plan: recently had an amputation of the 5th toe of the left foot. Being managed by surgery. (2) Necrosis of toe Plan: managed by surgery (3) ESRD (end stage renal disease) Is this a current diagnosis for this admission?: Yes Plan: Currently does not appear to need dialysis. Does have extra fluid on but not acutely short of breath. Will have it arranged for him to have dialysis early in the morning at 7am. (4) Anemia in chronic kidney disease (CKD) Plan: on epogen with dialysis (5) Hypertension Qualifiers: Hypertension type: essential hypertension Qualified Code(s): I10 - Essential (primary) hypertension Is this a current diagnosis for this admission?: Yes Plan: controlled (6) Diabetes Qualifiers: Diabetes mellitus type: type 2 Diabetes mellitus snf insulin use: with long term care social worker use Diabetes mellitus complication status: with kidney complications Diabetes mellitus complication detail: with chronic kidney disease Chronic kidney disease stage: on chronic dialysis Qualified Code(s) : E11.22 - Type 2 diabetes mellitus with diabetic chronic kidney disease Is this a current diagnosis for this admission?: Yes
[2017-10-15] MEDS: ACETAMINOPHEN 325 MG TABLET PO PRN (15:57)
[2017-10-15] MEDS ORDERED: VANCOMYCIN HCL 0 MG in DEXTROSE 5%-WATER 250 ML IV NR (18:15)
--- NOTE | 2017-10-15 18:16 | PDOC PROGRESS REPORT ---
Subjective Progress Note for:: 10/15/17 Reason For Visit: LT GREAT TOE GANGRENE Physical Exam Vital Signs: Temp Pulse Resp BP Pulse Ox 101.9 F H 87 18 131/52 H 100 10/15/17 16:00 10/15/17 16:00 10/15/17 16:00 10/15/17 16:00 10/15/17 16:00 Intake & Output 10/14/17 10/15/17 10/16/17 06:59 06:59 06:59 Intake Total 550 355 Output Total 0 0 Balance 550 355 Weight 104.3 kg General appearance: PRESENT: no acute distress, well-developed, well-nourished Head exam: PRESENT: atraumatic, normocephalic Eye exam: PRESENT: conjunctiva pink, EOMI, PERRLA. ABSENT: scleral icterus Ear exam: PRESENT: normal external ear exam Mouth exam: PRESENT: moist, tongue midline Neck exam: ABSENT: carotid bruit, JVD, lymphadenopathy, thyromegaly Respiratory exam: PRESENT: clear to auscultation césar. ABSENT: rales, rhonchi, wheezes Cardiovascular exam: PRESENT: RRR. ABSENT: diastolic murmur, rubs, systolic murmur Pulses: PRESENT: normal dorsalis pedis pul Vascular exam: PRESENT: normal capillary refill GI/Abdominal exam: PRESENT: normal bowel sounds, soft. ABSENT: distended, guarding, mass, organolmegaly, rebound, tenderness Rectal exam: PRESENT: deferred Extremities exam: PRESENT: full ROM. ABSENT: calf tenderness, clubbing, pedal edema Neurological exam: PRESENT: alert, awake, oriented to person, oriented to place , oriented to time, oriented to situation, CN II-XII grossly intact. ABSENT: motor sensory deficit Psychiatric exam: PRESENT: appropriate affect, normal mood. ABSENT: homicidal ideation, suicidal ideation Skin exam: PRESENT: dry, intact, warm. ABSENT: cyanosis, rash Results Laboratory Results: 10/14/17 16:34 10/14/17 16:34 10/14/17 16:34 Lactic Acid 1.2 Impressions: Foot X-Ray 10/14/17 10:55 IMPRESSION: No evidence of osteomyelitis. Assessment & Plan - Diagnosis (1) Diabetic wet gangrene of the foot Is this a current diagnosis for this admission?: Yes Plan: Status post amputation. Pain management. Follow-up culture (2) Anemia Is this a current diagnosis for this admission?: Yes Plan: Likely due to CKD will monitor H&H and transfuse as needed. On Epogen with hemodialysis as per nephrology. (3) ESRD (end stage renal disease) Is this a current diagnosis for this admission?: Yes Plan: We will monitor electrolytes and volume status. Hemodialysis tomorrow as per perioperative tech note (4) Hypertension Qualifiers: Hypertension type: essential hypertension Qualified Code(s): I10 - Essential (primary) hypertension Is this a current diagnosis for this admission?: Yes Plan: Normotensive euvolemic. Will restart home medication and adjust dosage as needed. (5) Fever Is this a current diagnosis for this admission?: Yes Plan: Gram-negative rods and wound culture. No sensitivity available. Continue empiric antibiotic treatment. We will obtain blood cultures
[2017-10-15 20:47] LABS: HEMATOCRIT 26.9 % (37.9-51.0); HEMOGLOBIN 8.7 g/dL (13.5-17.0); MEAN CORPUSCULAR HEMOGLOBIN 30.5 pg (27.0-33.4); MEAN CORPUSCULAR HGB CONC 32.4 g/dL (32.0-36.0); MEAN CORPUSCULAR VOLUME 94 fl (80-97); PLATELET COUNT 347 10^3/uL (150-450); RED BLOOD COUNT 2.86 10^6/uL (4.35-5.55); RED CELL DISTRIBUTION WIDTH 15.7 % (11.5-14.0); WHITE BLOOD COUNT 23.7 10^3/uL (4.0-10.5)
[2017-10-15 21:06] LABS: ABSOLUTE LYMPHOCYTES# (MANUAL) 1.9 10^3/uL (0.5-4.7); ABSOLUTE MONOCYTES # (MANUAL) 2.1 10^3/uL (0.1-1.4); ABSOLUTE NEUTROPHILS# (MANUAL) 19.4 10^3/uL (1.7-8.2); BASOPHILS % (MANUAL) 0 % (0-2); EOSINOPHILS % (MANUAL) 1 % (0-6); LYMPHOCYTES % (MANUAL) 8 % (13-45); MONOCYTES % (MANUAL) 9 % (3-13); SEGMENTED NEUTROPHILS % (MAN) 82 % (42-78); TOTAL CELLS COUNTED 100
[2017-10-15 21:07] LABS: ANISOCYTOSIS SLIGHT; PLATELET COMMENT ADEQUATE; ROULEAUX SLIGHT; TOXIC GRANULATION SLIGHT
[2017-10-15] MEDS ORDERED: VANCOMYCIN HCL 1,000 MG in DEXTROSE 5%-WATER 250 ML IV SCH (22:00)
[2017-10-16] MEDS ORDERED: EPOETIN ALFA INJ 20000 UNIT/1 ML VIAL (RENAL) IV PRN (05:00)
[2017-10-16] MEDS: GABAPENTIN 100 MG CAPSULE PO SCH ×2 (06:24→18:18)
[2017-10-16] MEDS: BENZONATATE 100 MG CAPSULE PO SCH ×2 (06:24→18:18)
[2017-10-16] MEDS: INSULIN LISPRO 100 UNIT/ML 3 ML VIAL SUBCUT PRN (06:31)
[2017-10-16 08:15] LABS: HEMATOCRIT 26.3 % (37.9-51.0); HEMOGLOBIN 8.7 g/dL (13.5-17.0); MEAN CORPUSCULAR HEMOGLOBIN 30.9 pg (27.0-33.4); MEAN CORPUSCULAR HGB CONC 33.1 g/dL (32.0-36.0); MEAN CORPUSCULAR VOLUME 93 fl (80-97); PLATELET COUNT 333 10^3/uL (150-450); RED BLOOD COUNT 2.82 10^6/uL (4.35-5.55); RED CELL DISTRIBUTION WIDTH 16.1 % (11.5-14.0); WHITE BLOOD COUNT 25.2 10^3/uL (4.0-10.5)
--- NOTE | 2017-10-16 09:05 | PDOC PROGRESS REPORT ---
Subjective Progress Note for:: 10/16/17 Subjective:: No complaints Reason For Visit: LT GREAT TOE GANGRENE Physical Exam Vital Signs: Temp Pulse Resp BP Pulse Ox 98.7 F 80 17 107/53 L 96 10/16/17 07:26 10/16/17 07:26 10/16/17 07:26 10/16/17 07:26 10/16/17 07:26 Intake & Output 10/15/17 10/16/17 10/17/17 06:59 06:59 06:59 Intake Total 550 925 Output Total 0 0 Balance 550 925 Weight 104.3 kg 109.3 kg General appearance: PRESENT: no acute distress Vascular exam: PRESENT: other - Diminished left femoral pulse; unable to feel pulses in the foot. Musculoskeletal exam: PRESENT: other - Left foot dressing removed; foul smell coming from the wound; no elation tissue; fascia dark desiccated remainder of foot mildly edematous. Results Laboratory Results: 10/16/17 06:14 10/16/17 06:14 10/15/17 10/15/17 10/15/17 19:27 20:25 21:29 WBC 23.7 H RBC 2.86 L Hgb 8.7 L Hct 26.9 L MCV 94 MCH 30.5 MCHC 32.4 RDW 15.7 H Plt Count 347 Seg Neutrophils % Not Reportable Lymphocytes % Not Reportable Monocytes % Not Reportable Eosinophils % Not Reportable Basophils % Not Reportable Absolute Neutrophils Not Reportable Absolute Lymphocytes Not Reportable Absolute Monocytes Not Reportable Absolute Eosinophils Not Reportable Absolute Basophils Not Reportable Sodium Potassium Chloride Carbon Dioxide Anion Gap BUN Creatinine Est GFR ( Amer) Est GFR (Non-Af Amer) Glucose Calcium Stool Occult Blood NEGATIVE Blood Type B POSITIVE Antibody Screen NEGATIVE 10/16/17 10/16/17 06:14 06:14 WBC 25.2 H RBC 2.82 L Hgb 8.7 L Hct 26.3 L MCV 93 MCH 30.9 MCHC 33.1 RDW 16.1 H Plt Count 333 Seg Neutrophils % Lymphocytes % Monocytes % Eosinophils % Basophils % Absolute Neutrophils Absolute Lymphocytes Absolute Monocytes Absolute Eosinophils Absolute Basophils Sodium Cancelled Potassium Cancelled Chloride Cancelled Carbon Dioxide Cancelled Anion Gap Cancelled BUN Cancelled Creatinine Cancelled Est GFR ( Amer) Cancelled Est GFR (Non-Af Amer) Cancelled Glucose Cancelled Calcium Cancelled Stool Occult Blood Blood Type Antibody Screen Impressions: Foot X-Ray 10/14/17 10:55 IMPRESSION: No evidence of osteomyelitis. Assessment & Plan - Diagnosis (1) Diabetic wet gangrene of the foot Is this a current diagnosis for this admission?: Yes Plan: Impression: Patient is now 2 days status post left fifth toe amputation with metatarsal head, postoperative wound not healing due to inadequate blood flow in this 62-year-old Afro-[place] gentleman with hypertension, diabetes mellitus , peripheral vascular disease. Medications: 1. I explained to the patient is foot wound will not heal without increased blood flow, therefore I suggest we get him to a vascular surgeon who can improve his distal left lower extremity circulation. 2. I spoke with Dr. Kade Valentino, vascular surgeon in [place], who is agreed to accept the patient in transfer. 3. I have spoken with Dr. Chirinos, hospitalist, who is agreed to perform transfer summary.
--- NOTE | 2017-10-16 09:34 | PDOC TRANSFER SUMMARY ---
General Admission Date/PCP: 10/14/17 13:51 JULIANA SANDRA MD Resuscitation Status: Full Code - Transfer Diagnosis (1) Diabetic wet gangrene of the foot Is this a current diagnosis for this admission?: Yes (2) Anemia Is this a current diagnosis for this admission?: Yes (3) ESRD (end stage renal disease) Is this a current diagnosis for this admission?: Yes (4) Hypertension Is this a current diagnosis for this admission?: Yes (5) Fever Is this a current diagnosis for this admission?: Yes - Transfer Medications Home Medications: B Complex W-C No.20/Folic Acid [Renal Caps Softgel] 1 mg PO DAILY 10/14/17 Benzonatate [Tessalon Perle 100 mg Capsule] 100 mg PO Q8 10/14/17 Furosemide [Lasix 40 mg Tablet] 40 mg PO SUMOWEFR@1000 10/14/17 Gabapentin [Neurontin 100 mg Capsule] 100 mg PO Q8 10/14/17 Hydralazine HCl [Apresoline 25 mg Tablet] 25 mg PO TUTHSA@1000,2200 10/14/17 Insulin Glargine,Hum.rec.anlog [Basaglar Kwikpen U-100] 35 unit SQ DAILY Lidocaine/Prilocaine [Emla Cream] 30 gm TP .BEFORE DIALYSIS 10/14/17 Metolazone [Zaroxolyn 5 Mg Tablet] 5 mg PO SUMOWEFR@1000 10/14/17 Midodrine HCl 10 mg PO .BEFORE DIALYSIS 10/14/17 Omeprazole 40 mg PO DAILY 10/14/17 Sevelamer Carbonate [Renvela] 1,600 mg PO .WITH SNACKS 10/14/17 Sevelamer Carbonate [Renvela] 2,400 mg PO MEALS 10/14/17 Sildenafil Citrate [Viagra] 50 mg PO DAILYP PRN 10/14/17 Transfer Medications: Current Medications Acetaminophen (Tylenol 325 Mg Tablet) 650 mg PO Q4HP PRN PRN Reason: FOR PAIN SCALE 3-5 Stop: 11/13/17 22:01 Last Admin: 10/15/17 15:57 Dose: 650 mg Hydrocodone Bitart/Acetaminophen ([place] 10-325 Mg Tablet) 1 tab PO Q4HP PRN PRN Reason: FOR PAIN Stop: 10/21/17 17:24 Benzonatate (Tessalon Perles 100 Mg Capsule) 100 mg PO Q8 [facility] Stop: 11/14/17 05:59 Last Admin: 10/16/17 06:24 Dose: 100 mg Ceftriaxone Sodium (Rocephin Inj 1000 Mg Vial) 1,000 mg IM PDIA [facility] Stop: 10/23/17 17:59 Dextrose (Dextrose Inj 50% Syringe (25 Gm/50 Ml)) 12.5 gm IV PRN PRN; Protocol PRN Reason: FOR BG 50-69 IN ALERT PATIENT Stop: 11/13/17 22:01 Dextrose (Dextrose Inj 50% Syringe (25 Gm/50 Ml)) 25 gm IV PRN PRN; Protocol PRN Reason: PER PROTOCOL Stop: 11/13/17 22:01 Enoxaparin Sodium (Lovenox Inj 40 Mg/0.4 Ml Disp.Syrin) 40 mg SUBCUT DAILY [facility] Stop: 11/14/17 09:59 Last Admin: 10/15/17 11:32 Dose: 40 mg Epoetin Johnathan (Procrit Inj 20,000 Unit/1 Ml Vial (Renal)) 20,000 unit IV .DIALYSIS PRN PRN Reason: THIS MED IS NOT "PRN" Stop: 10/16/17 23:59 Furosemide (Lasix 40 Mg Tablet) 40 mg PO SUMOWEFR@1000 [facility] Stop: 11/15/17 09:59 Gabapentin (Neurontin 100 Mg Capsule) 100 mg PO Q8 [facility] Stop: 11/14/17 05:59 Last Admin: 10/16/17 06:24 Dose: 100 mg Glucagon (Glucagen Inj 1 Mg Vial) 1 mg IM PRN PRN; Protocol PRN Reason: Evaluate for BG < 70 Stop: 11/13/17 22:01 Glucose (Glutose 40% Gel 15 Gm Tube) 15 gm PO PRN PRN; Protocol PRN Reason: FOR BG 50-69 IN ALERT PATIENT Stop: 11/13/17 22:01 Glucose (Glutose 40% Gel 15 Gm Tube) 30 gm PO PRN PRN; Protocol PRN Reason: FOR BG < 50 IN ALERT PATIENT Stop: 11/13/17 22:01 Hydralazine HCl (Apresoline 25 Mg Tablet) 25 mg PO TUTHSA@1000,2200 [facility] Stop: 11/14/17 09:59 Last Admin: 10/15/17 22:10 Dose: Not Given Vancomycin HCl 1,000 mg/ (Dextrose) 250 mls @ 166.667 mls/hr IV Q3D@2200 [facility] Stop: 10/22/17 21:59 Last Infusion: 10/15/17 23:40 Dose: Infused Insulin Glargine (Lantus Insulin Inj 300 Unit/3 Ml Pen) 35 unit SUBCUT DAILY [facility] Stop: 11/14/17 09:59 Last Admin: 10/15/17 11:38 Dose: 35 units Insulin Human Lispro (Humalog Insulin 100 Unit/1 Ml 3 Ml Vial) 0 - 12 unit SUBCUT Q6HP PRN; Protocol PRN Reason: PER PROTOCOL Stop: 11/13/17 22:01 Last Admin: 10/16/17 06:31 Dose: 4 units Lansoprazole (Prevacid 30 Mg Odt Tablet) 30 mg PO DAILY [facility] Stop: 11/14/17 09:59 Last Admin: 10/15/17 11:31 Dose: 30 mg Lidocaine HCl (Xylocaine 1% Inj-Pf (10 Mg/Ml) 30 Ml Sdv) 2.1 ml INJ PDIA [facility] Stop: 11/15/17 17:59 Metolazone (Zaroxolyn 5 Mg Tablet) 5 mg PO SUMOWEFR@1000 [facility] Stop: 11/15/17 09:59 Multivit/Ca Carb/B Cmplx/FA/Prenat (Nephrocaps Multiple Vitamin Capsule) 1 cap PO DAILY [facility] Stop: 11/14/17 09:59 Last Admin: 10/15/17 11:31 Dose: 1 cap Ondansetron HCl (Zofran Inj/Pf 4 Mg/2 Ml Sdv) 4 mg IV Q4HP PRN PRN Reason: FOR NAUSEA/VOMITING Stop: 11/13/17 17:24 Last Admin: 10/14/17 20:16 Dose: 4 mg Ondansetron HCl (Zofran Odt 4 Mg Tablet) 4 mg PO Q4HP PRN PRN Reason: FOR NAUSEA/VOMITING Stop: 11/13/17 22:01 Patient Own Medication (Sildenafil Citrate [Viagra]) 50 mg PO DAILYP PRN PRN Reason: FOR SEXUAL ACTIVITY Sevelamer HCl (Renagel 800 Mg Tablet) 1,600 mg PO BIDP PRN PRN Reason: WITH SNACKS Stop: 11/13/17 23:14 Sevelamer HCl (Renagel 800 Mg Tablet) 2,400 mg PO AC [facility] Stop: 11/14/17 07:59 Last Admin: 10/15/17 15:47 Dose: 2,400 mg - Allergies Allergies/Adverse Reactions: No Known Allergies Allergy (Verified 10/14/17 10:07) Hospital Course Hospital Course: This is a 62-year-old male past medical history of diabetes peripheral vascular disease end-stage renal disease on dialysis Thursday had a history of right BKA due to diabetes complication. Patient was admitted complaining of left great toe gangrene 1 week patient is status post left toe amputation by general surgery. 1. Lt Great Toe Wet Gangrene Patient is 2 days status post left toe amputation by general surgery. 2. ESRD on HD Patient has end-stage renal disease on hemodialysis Thursday. Patient is scheduled to receive his dialysis today he will be transferred to [place] post hemodialysis. 3. Anemia of CKD H&H has been stable during hospitalization patient received Epogen during hemodialysis by gym attendant. 4. HTN Patient was restarted on hydralazine and his diuretics patient remains normotensive during hospitalization. Please resume home medications as appropriate. 5. Fever Patient was not running low-grade fever yesterday. Blood cultures were obtained and patient was started on ceftriaxone. Blood cultures have been negative 24 hours. However patient is growing E. coli on wound the specimen from the left great toe patient is status post left toe amputation. Please continue antibiotics pending the results of blood culture. Physical Exam Vital Signs: Temp Pulse Resp BP Pulse Ox 98.7 F 80 17 107/53 L 96 10/16/17 07:26 10/16/17 07:26 10/16/17 07:26 10/16/17 07:26 10/16/17 07:26 Intake & Output 10/15/17 10/16/17 10/17/17 06:59 06:59 06:59 Intake Total 550 925 Output Total 0 0 Balance 550 925 Weight 104.3 kg 109.3 kg General appearance: PRESENT: no acute distress, well-developed, well-nourished Head exam: PRESENT: atraumatic, normocephalic Eye exam: PRESENT: conjunctiva pink, EOMI, PERRLA. ABSENT: scleral icterus Ear exam: PRESENT: normal external ear exam Mouth exam: PRESENT: moist, tongue midline Neck exam: ABSENT: carotid bruit, JVD, lymphadenopathy, thyromegaly Respiratory exam: PRESENT: clear to auscultation césar. ABSENT: rales, rhonchi, wheezes Cardiovascular exam: PRESENT: RRR. ABSENT: diastolic murmur, rubs, systolic murmur Pulses: PRESENT: normal dorsalis pedis pul Vascular exam: PRESENT: normal capillary refill GI/Abdominal exam: PRESENT: normal bowel sounds, soft. ABSENT: distended, guarding, mass, organolmegaly, rebound, tenderness Rectal exam: PRESENT: deferred Extremities exam: PRESENT: full ROM. ABSENT: calf tenderness, clubbing, pedal edema Musculoskeletal exam: PRESENT: other - Status post left great toe amputation. No signs of edema erythema or active infection. Patient has history of right BKA. Neurological exam: PRESENT: alert, awake, oriented to person, oriented to place , oriented to time, oriented to situation, CN II-XII grossly intact. ABSENT: motor sensory deficit Psychiatric exam: PRESENT: appropriate affect, normal mood. ABSENT: homicidal ideation, suicidal ideation Skin exam: PRESENT: dry, intact, warm. ABSENT: cyanosis, rash Results Laboratory Results: 10/16/17 06:14 10/16/17 06:14 10/15/17 10/15/17 10/15/17 19:27 20:25 21:29 WBC 23.7 H RBC 2.86 L Hgb 8.7 L Hct 26.9 L MCV 94 MCH 30.5 MCHC 32.4 RDW 15.7 H Plt Count 347 Seg Neutrophils % Not Reportable Lymphocytes % Not Reportable Monocytes % Not Reportable Eosinophils % Not Reportable Basophils % Not Reportable Absolute Neutrophils Not Reportable Absolute Lymphocytes Not Reportable Absolute Monocytes Not Reportable Absolute Eosinophils Not Reportable Absolute Basophils Not Reportable Sodium Potassium Chloride Carbon Dioxide Anion Gap BUN Creatinine Est GFR ( Amer) Est GFR (Non-Af Amer) Glucose Calcium Stool Occult Blood NEGATIVE Blood Type B POSITIVE Antibody Screen NEGATIVE 10/16/17 10/16/17 06:14 06:14 WBC 25.2 H RBC 2.82 L Hgb 8.7 L Hct 26.3 L MCV 93 MCH 30.9 MCHC 33.1 RDW 16.1 H Plt Count 333 Seg Neutrophils % Lymphocytes % Monocytes % Eosinophils % Basophils % Absolute Neutrophils Absolute Lymphocytes Absolute Monocytes Absolute Eosinophils Absolute Basophils Sodium Cancelled Potassium Cancelled Chloride Cancelled Carbon Dioxide Cancelled Anion Gap Cancelled BUN Cancelled Creatinine Cancelled Est GFR ( Amer) Cancelled Est GFR (Non-Af Amer) Cancelled Glucose Cancelled Calcium Cancelled Stool Occult Blood Blood Type Antibody Screen Impressions: Foot X-Ray 10/14/17 10:55 IMPRESSION: No evidence of osteomyelitis. Plan Discharge Plan: Patient will be transferred to [place] for vascular intervention patient was accepted by Dr. Valentino.
[2017-10-16] MEDS: FOLIC ACID/VITAMIN B COMP W-C CAPSULE PO SCH (09:43)
[2017-10-16] MEDS: LANSOPRAZOLE 30 MG TAB.RAP.DR PO SCH (09:43)
[2017-10-16] MEDS: ENOXAPARIN SODIUM INJ 40 MG/0.4 ML DISP.SYRIN SUBCUT SCH (09:44)
[2017-10-16] MEDS: SEVELAMER HCL 800 MG TABLET PO SCH ×3 (09:44→18:18)
[2017-10-16] MEDS: INSULIN GLARGINE,HUM.REC.ANLOG 300 UNIT/3 ML INSULN.PEN SUBCUT SCH (09:45)
[2017-10-16] MEDS ORDERED: FUROSEMIDE 40 MG TABLET PO SCH (10:00)
[2017-10-16] MEDS ORDERED: METOLAZONE 5 MG TABLET PO SCH (10:00)
[2017-10-16 10:30] LABS: BLOOD UREA NITROGEN 79 mg/dL (7-20); CALCIUM 8.7 mg/dL (8.4-10.2); GLUCOSE 229 mg/dL (75-110); POTASSIUM 4.6 mmol/L (3.6-5.0)
[2017-10-16 10:35] LABS: CARBON DIOXIDE 20 mmol/L (22-30); CHLORIDE 90 mmol/L (98-107); SODIUM 133.8 mmol/L (137-145)
[2017-10-16 10:43] LABS: ANION GAP 24 (5-19)
[2017-10-16 13:35] VITALS: BP 104/35
--- NOTE | 2017-10-16 16:20 | PDOC PROGRESS REPORT ---
Subjective Progress Note for:: 10/16/17 Subjective:: Patient seen today on dialysis. He is undergoing dialysis without any issues. He denies any history of chest pain or shortness of breath. Vital signs are stable. Labs and medications were reviewed with the patient. Reason For Visit: LT GREAT TOE GANGRENE Physical Exam Vital Signs: Temp Pulse Resp BP Pulse Ox 98.7 F 80 17 107/53 L 96 10/16/17 07:26 10/16/17 07:26 10/16/17 07:26 10/16/17 07:26 10/16/17 07:26 Intake & Output 10/15/17 10/16/17 10/17/17 06:59 06:59 06:59 Intake Total 550 925 Output Total 0 0 Balance 550 925 Weight 104.3 kg 109.3 kg General appearance: PRESENT: no acute distress, well-developed, well-nourished Mouth exam: PRESENT: moist, neck supple Neck exam: PRESENT: full ROM. ABSENT: JVD Respiratory exam: PRESENT: clear to auscultation césar. ABSENT: accessory muscle use, crackles, rales, rhonchi, wheezes Cardiovascular exam: PRESENT: RRR, +S1, +S2 Extremities exam: PRESENT: tenderness. ABSENT: pedal edema, +1 edema, +2 edema Musculoskeletal exam: PRESENT: deformity, tenderness Neurological exam: PRESENT: alert, awake, oriented to person, oriented to place , oriented to time, oriented to situation Skin exam: PRESENT: dry, intact, warm. ABSENT: cyanosis Results Laboratory Results: 10/16/17 06:14 10/16/17 09:25 10/15/17 10/15/17 10/15/17 19:27 20:25 21:29 WBC 23.7 H RBC 2.86 L Hgb 8.7 L Hct 26.9 L MCV 94 MCH 30.5 MCHC 32.4 RDW 15.7 H Plt Count 347 Seg Neutrophils % Not Reportable Lymphocytes % Not Reportable Monocytes % Not Reportable Eosinophils % Not Reportable Basophils % Not Reportable Absolute Neutrophils Not Reportable Absolute Lymphocytes Not Reportable Absolute Monocytes Not Reportable Absolute Eosinophils Not Reportable Absolute Basophils Not Reportable Sodium Potassium Chloride Carbon Dioxide Anion Gap BUN Creatinine Est GFR ( Amer) Est GFR (Non-Af Amer) Glucose Calcium Stool Occult Blood NEGATIVE Blood Type B POSITIVE Antibody Screen NEGATIVE 10/16/17 10/16/17 10/16/17 06:14 06:14 09:25 WBC 25.2 H RBC 2.82 L Hgb 8.7 L Hct 26.3 L MCV 93 MCH 30.9 MCHC 33.1 RDW 16.1 H Plt Count 333 Seg Neutrophils % Lymphocytes % Monocytes % Eosinophils % Basophils % Absolute Neutrophils Absolute Lymphocytes Absolute Monocytes Absolute Eosinophils Absolute Basophils Sodium Cancelled 133.8 L Potassium Cancelled 4.6 Chloride Cancelled 90 L Carbon Dioxide Cancelled 20 L Anion Gap Cancelled 24 H BUN Cancelled 79 H Creatinine Cancelled 14.64 H Est GFR ( Amer) Cancelled 4 L Est GFR (Non-Af Amer) Cancelled 3 L Glucose Cancelled 229 H Calcium Cancelled 8.7 Stool Occult Blood Blood Type Antibody Screen 10/14/17 14:50 Foot - Tissue (Surgical) Gram Stain - Final Impressions: Foot X-Ray 10/14/17 10:55 IMPRESSION: No evidence of osteomyelitis. 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 (2) Necrosis of toe Plan: on antibiotics and recently had amputation of the 5 toe on his left foot. Being managed by surgery (3) ESRD (end stage renal disease) Is this a current diagnosis for this admission?: Yes Plan: Patient currently undergoing dialysis without any issues. Is being supervised to ensure safe and smooth procedure. Vital signs are stable. Plan to remove between 2 and 3 L as tolerated. Labs and medications were reviewed with the patient. Dialysis orders were reviewed with the treating dialysis nurse. (4) Anemia in chronic kidney disease (CKD) Plan: giving epogen during treatment. (5) Hypertension Qualifiers: Hypertension type: essential hypertension Qualified Code(s): I10 - Essential (primary) hypertension Is this a current diagnosis for this admission?: Yes Plan: controlled (6) Diabetes Qualifiers: Diabetes mellitus type: type 2 Diabetes mellitus jail insulin use: with terminal computer operator use Diabetes mellitus complication status: with kidney complications Diabetes mellitus complication detail: with chronic kidney disease Chronic kidney disease stage: on chronic dialysis Qualified Code(s) : E11.22 - Type 2 diabetes mellitus with diabetic chronic kidney disease; N18.6 - End stage renal disease; N18.6 - End stage renal disease; N18.6 - End stage renal disease; N18.6 - End stage renal disease; Z79.4 - prison (current) use of insulin; Z79.4 - prison (current) use of insulin; Z79.4 - prison ( current) use of insulin; Z79.4 - prison (current) use of insulin; Z99.2 - Dependence on renal dialysis; Z99.2 - Dependence on renal dialysis; Z99.2 - Dependence on renal dialysis; Z99.2 - Dependence on renal dialysis Is this a current diagnosis for this admission?: Yes
[2017-10-16] MEDS ORDERED: LIDOCAINE HCL 1% INJ (FOR 1 GM VIAL) INJ SCH (18:00)
[2017-10-16] MEDS ORDERED: CEFTRIAXONE INJ 1000 MG VIAL IM SCH (18:00)
[2017-10-16] MEDS: ACETAMINOPHEN 325 MG TABLET PO PRN (18:18)
[2017-10-17] MEDS ORDERED: HEPARIN SOD (PORCINE) 5,000 UNIT/ML 1 ML SYRINGE SUBCUT SCH (06:00)
== END 2017-10-16 19:45 | disposition short-term general hospital (02) | DRG 255 ==
LOC: ER 10:06 → EH 13:51 → 4S 17:06
PROVIDERS: ADMIT Internal Medicine; ATTEND Internal Medicine
PROC: 0JBR0ZZ Excision of Left Foot Subcutaneous Tissue and Fascia, Open Approach (ICD-10-PCS; 2017-10-14)
PROC: 0Y6Y0Z0 Detachment at Left 5th Toe, Complete, Open Approach (ICD-10-PCS; principal; 2017-10-14 14:00)
PROC: 5A1D70Z Performance of Urinary Filtration, Intermittent, Less than 6 Hours Per Day (ICD-10-PCS; 2017-10-16)
DX: E11.52 Type 2 diabetes mellitus with diabetic peripheral angiopathy with gangrene (principal); N18.6 End stage renal disease; I96 Gangrene, not elsewhere classified; I13.2 Hypertensive heart and chronic kidney disease with heart failure and with stage 5 chronic kidney disease, or end stage renal disease; I50.30 Unspecified diastolic (congestive) heart failure; E11.22 Type 2 diabetes mellitus with diabetic chronic kidney disease; D63.1 Anemia in chronic kidney disease; J44.9 Chronic obstructive pulmonary disease, unspecified; I25.10 Atherosclerotic heart disease of native coronary artery without angina pectoris; K21.9 Gastro-esophageal reflux disease without esophagitis; E78.5 Hyperlipidemia, unspecified; G47.30 Sleep apnea, unspecified; Z79.82 Long term (current) use of aspirin; Z79.4 Long term (current) use of insulin; Z79.899 Other long term (current) drug therapy; Z99.2 Dependence on renal dialysis; Z89.511 Acquired absence of right leg below knee
CPT/HCPCS: 01480; 36415; 80048; 80053; 82272; 82962; 83605; 85025; 85027; 86140; 86850; 86900; 86901; 87040; 87070; 87075; 87077; 87186; 87205; 93926; 99285; G8978-GP; G8979-GP; J0690; J1650; J1815; J2250; J2405; J2704; J3010; J3370; J3490; J7060; Q4081

== ENCOUNTER 2020-01-02 10:29 | Emergency (ER) | payer MEDICARE ==
--- NOTE | 2020-01-02 11:28 | ER Document Report ---
ED Medical Screen (RME) - General Stated Complaint: PORT ISSUES RIGHT ARM NUMBNESS Time Seen by Provider: 01/02/20 11:13 Primary Care Provider: JULIANA SANDRA MD [Primary Care Provider] - Follow up as needed Notes: Patient is a 64-year-old male with a history of diabetes who presents emergency department with a chief complaint of bilateral swelling. Patient had his AV fistula placed in his left arm about 3 to 4 days ago. Patient states that he started to notice some swelling and redness to his left hand and now has it on his right. Exam: Edema and erythema noted to bilateral hands, more on the left than on the right. Patient's initial pulse ox was recorded as 80% on room air. I recheck and it it was 98% on room air. I have greeted and performed a rapid initial assessment of this patient. A comprehensive ED assessment and evaluation of the patient, analysis of test results and completion of medical decision making process will be conducted by an additional ED providers. TRAVEL OUTSIDE OF THE [place] IN LAST 30 DAYS: No - Related Data Allergies/Adverse Reactions: No Known Allergies Allergy (Verified 10/14/17 10:07) Past Medical History - Past Medical History Cardiac Medical History: Reports: Hx Congestive Heart Failure - Diastolic, Hx Coronary Artery Disease, Hx Hypercholesterolemia, Hx Hypertension Denies: Hx Heart Attack Pulmonary Medical History: Reports: Hx Asthma, Hx COPD, Hx Pneumonia - 2013, Hx Sleep Apnea Denies: Hx Bronchitis, Hx Tuberculosis Neurological Medical History: Denies: Hx Cerebrovascular Accident, Hx Seizures Endocrine Medical History: Reports: Hx Diabetes Mellitus Type 2 Renal/ Medical History: Reports: Hx End Stage Renal Disease, Hx Peritoneal Dialysis, Hx Renal Insufficiency. Denies: Hx Hemodialysis GI Medical History: Reports: Hx Gastroesophageal Reflux Disease Musculoskeltal Medical History: Denies Hx Arthritis Skin Medical History: Reports Hx Cellulitis - LOWER EXTREMITY OSTEO LEFT FOOT Psychiatric Medical History: Denies: Hx Depression Past Surgical History: Reports: Hx Cardiac Catheterization - Cardiac catheterization few months ago showed mild CAD., Hx Orthopedic Surgery - Left big toe amputation, knee arthroscopy, Hx Vascular Surgery - Left forearm AV fistula, Other - Bilateral cataract extraction - Immunizations Hx Diphtheria, Pertussis, Tetanus Vaccination: Yes Physical Exam - Vital signs Vitals: Temp Pulse Resp BP Pulse Ox 99.3 F 80 18 189/66 H 80 L 01/02/20 10:43 01/02/20 10:43 01/02/20 10:43 01/02/20 10:43 01/02/20 10:43 Course - Vital Signs Vital signs: Temp Pulse Resp BP Pulse Ox 99.3 F 80 18 189/66 H 80 L 01/02/20 10:43 01/02/20 10:43 01/02/20 10:43 01/02/20 10:43 01/02/20 10:43 Doctor's Discharge - Discharge Referrals: JULIANA SANDRA MD [Primary Care Provider] - Follow up as needed
[2020-01-02 12:05] LABS: ABSOLUTE BASOPHILS # (AUTO) 0.1 10^3/uL (0.0-0.2); ABSOLUTE EOSINOPHILS # (AUTO) 0.9 10^3/uL (0.0-0.6); ABSOLUTE LYMPHOCYTES (AUTO) 1.1 10^3/uL (0.5-4.7); ABSOLUTE MONOCYTES (AUTO) 1.1 10^3/uL (0.1-1.4); ABSOLUTE NEUT (AUTO) 8.9 10^3/uL (1.7-8.2); BASOPHILS % (AUTO) 0.5 % (0-2); EOSINOPHILS % (AUTO) 7.2 % (0-6); HEMATOCRIT 37.2 % (37.9-51.0); HEMOGLOBIN 12.6 g/dL (13.5-17.0); LYMPHOCYTES % (AUTO) 9.4 % (13-45); MEAN CORPUSCULAR HEMOGLOBIN 31.4 pg (27.0-33.4); MEAN CORPUSCULAR HGB CONC 33.9 g/dL (32.0-36.0); MEAN CORPUSCULAR VOLUME 93 fl (80-97); MONOCYTES % (AUTO) 9.4 % (3-13); PLATELET COUNT 176 10^3/uL (150-450); RED BLOOD COUNT 4.02 10^6/uL (4.35-5.55); RED CELL DISTRIBUTION WIDTH 16.8 % (11.5-14.0); SEGMENTED NEUTROPHILS % (AUTO) 73.5 % (42-78); TOTAL CELLS COUNTED % (AUTO) 100 %; WHITE BLOOD COUNT 12.1 10^3/uL (4.0-10.5)
[2020-01-02 12:38] LABS: ALBUMIN 4.5 g/dL (3.5-5.0); ALKALINE PHOSPHATASE 101 U/L (38-126); ANION GAP 18 (5-19); ASPARTATE AMINO TRANSFERASE 25 U/L (17-59); BILIRUBIN,DIRECT 0.3 mg/dL (0.0-0.4); BILIRUBIN,TOTAL 0.6 mg/dL (0.2-1.3); BLOOD UREA NITROGEN 55 mg/dL (7-20); CALCIUM 9.6 mg/dL (8.4-10.2); CARBON DIOXIDE 22 mmol/L (22-30); CHLORIDE 94 mmol/L (98-107); GLUCOSE 161 mg/dL (75-110)
[2020-01-02 12:42] LABS: POTASSIUM 6.9 mmol/L (3.6-5.0)
[2020-01-02] MEDS ORDERED: DEXTROSE 50%-WATER 25 GM/50 ML DISP.SYRIN IV ONE (14:12)
[2020-01-02] MEDS ORDERED: INSULIN REG, HUMAN 100 UNIT/ML 3 ML VIAL (PYX) IV ONE (14:12)
[2020-01-02] MEDS ORDERED: CALCIUM GLUCONATE 1000 MG/10 ML INJ IV ONE (14:12)
--- NOTE | 2020-01-02 14:16 | RADIOLOGY REPORT (SQ) ---
EXAM DESCRIPTION: VENOUS BILATERAL UPPER IMAGES COMPLETED DATE/TIME: 01/02/2020 2:08 pm REASON FOR STUDY: BLUE swelling; left greater than right COMPARISON: None. TECHNIQUE: Dynamic and static cervantes scale and color images acquired of the right and left arm venous system. Selected spectral images acquired with additional compression and augmentation maneuvers. The contralateral subclavian vein and internal jugular vein were also imaged. Images stored on PACS. LIMITATIONS: None. FINDINGS: INTERNAL JUGULAR VEIN: Normal phasicity, compression, augmentation. No visualized echogeni c material on cervantes scale. No defects on color images. Comparison opposite side normal. SUBCLAVIAN VEIN: Normal compression, augmentation. No visualized echogenic material on cervantes scale. No defects on color images. AXILLARY VEIN: Normal compression, augmentation. No visualized echogenic material on cervantes scale. No d efects on color images. BRACHIAL VEIN: Normal compression, augmentation. No visualized echogenic material on cervantes scale. No d efects on color images. BASILIC VEIN: Normal compression, augmentation. No visualized echogenic material on cervantes scale. No de fects on color images. CEPHALIC VEIN: Normal compression, augmentation. No visualized echogenic material on cervantes scale. No d efects on color images. OTHER: No other significant finding. CONTRALATERAL SUBCLAVIAN VEIN AND INTERNAL JUGULAR VEIN: Normal phasicity, compression and augmentation. No visualized echogenic material on cervantes scale. No de fects on color images. IMPRESSION: NO EVIDENCE DVT OR SVT RIGHT OR LEFT ARM. TECHNICAL DOCUMENTATION: JOB ID: [id number] 2010 [employer]- All Rights Reserved Reading location - IP/workstation name: [email or web address]
[2020-01-02] MEDS ORDERED: CLINDAMYCIN 300 MG/D5W RTU 300 MG/50 ML RTUPB IV ONE (14:29)
--- NOTE | 2020-01-02 14:29 | ER Document Report ---
ED General - General Chief Complaint: Dialysis Catheter Problem Stated Complaint: PORT ISSUES RIGHT ARM NUMBNESS Time Seen by Provider: 01/02/20 11:13 Primary Care Provider: JULIANA SANDRA MD [Primary Care Provider] - Follow up in 3-5 days Notes: Patient is a 64-year-old male with a history of diabetes who presents emergency department with a chief complaint of bilateral swelling. Patient had his AV fistula placed in his left arm about 3 to 4 days ago. Patient states that he started to notice some swelling and redness to his left hand and now has it on his right. I reevaluated patient in a regular ED room and patient was stating that his last dialysis was . He is a Thursday, , Thursday dialysis patient. His sister who is at bedside states that she does not know when he last went. Patient was answering most questions appropriately, but due to him having acute confusion, we will send the patient for CT of the head and add on chest x-ray. TRAVEL OUTSIDE OF THE [place] IN LAST 30 DAYS: No - Related Data Allergies/Adverse Reactions: No Known Allergies Allergy (Verified 10/14/17 10:07) Past Medical History - Social History Smoking Status: Unknown if Ever Smoked Chew tobacco use (# tins/day): No Frequency of alcohol use: None Drug Abuse: None Family History: Reviewed & Not Pertinent, CAD, Hyperlipidemia, Hypertension Patient has homicidal ideation: No - Past Medical History Cardiac Medical History: Reports: Hx Congestive Heart Failure - Diastolic, Hx Coronary Artery Disease, Hx Hypercholesterolemia, Hx Hypertension Denies: Hx Heart Attack Pulmonary Medical History: Reports: Hx Asthma, Hx COPD, Hx Pneumonia - 2013, Hx Sleep Apnea Denies: Hx Bronchitis, Hx Tuberculosis Neurological Medical History: Denies: Hx Cerebrovascular Accident, Hx Seizures Endocrine Medical History: Reports: Hx Diabetes Mellitus Type 2 Renal/ Medical History: Reports: Hx End Stage Renal Disease, Hx Peritoneal Dialysis, Hx Renal Insufficiency. Denies: Hx Hemodialysis GI Medical History: Reports: Hx Gastroesophageal Reflux Disease Musculoskeletal Medical History: Denies Hx Arthritis Skin Medical History: Reports Hx Cellulitis - LOWER EXTREMITY OSTEO LEFT FOOT Psychiatric Medical History: Denies: Hx Depression Past Surgical History: Reports: Hx Cardiac Catheterization - Cardiac catheterization few months ago showed mild CAD., Hx Orthopedic Surgery - Left b ig toe amputation, knee arthroscopy, Hx Vascular Surgery - Left forearm AV fistula, Other - Bilateral cataract extraction - Immunizations Hx Diphtheria, Pertussis, Tetanus Vaccination: Yes Hx Pneumococcal Vaccination: 01/19/12 Review of Systems - Review of Systems Notes: REVIEW OF SYSTEMS: CONSTITUTIONAL : Denies recent illness. Denies recent unintentional weight loss. Denies fever, chills, or sweats. EENT: Denies eye, ear, throat, or mouth pain, discharge, or symptoms. Denies nasal or sinus congestion. CARDIOVASCULAR: Denies chest pain. RESPIRATORY: Denies shortness of breath, cough, congestion, difficulty breathing, or wheezing. GASTROINTESTINAL: Denies nausea, vomiting, and diarrhea. Denies abdominal pain. Denies constipation. GENITOURINARY: Denies difficulty urinating, burning, blood in urine, urgency or frequency. MUSCULOSKELETAL: Denies neck and back pain. See HPI. SKIN: See HPI. HEMATOLOGIC : Denies easy bruising or bleeding. LYMPHATIC: Denies swollen, painful, enlarged glands. NEUROLOGICAL: Denies no numbness or tingling denies weakness. Denies headache. Denies altered mental status. Denies alteration in speech. PSYCHIATRIC: Denies stress, anxiety, alteration in sleep patterns, or depression. All other systems reviewed and negative. Physical Exam - Vital signs Vitals: Temp Pulse Resp BP Pulse Ox 99.3 F 80 18 189/66 H 80 L 01/02/20 10:43 01/02/20 10:43 01/02/20 10:43 01/02/20 10:43 01/02/20 10:43 - Notes Notes: PHYSICAL EXAMINATION: GENERAL: Appears chronically ill, no acute distress. HEAD: Normocephalic, atraumatic. EYES: PERRL, conjunctiva normal, all extraocular movements intact, sclera nonicteric ENT: Moist mucous membranes. NECK: Supple, no noticeable swelling, redness, rash. Normal range of motion. LUNGS: Equal breath sounds bilaterally and clear to auscultation. No wheezes rales or rhonchi. CARDIOVASCULAR: S1-S2, regular rate, regular rhythm. Radial pulses 2+, normal. ABDOMEN: Normoactive bowel sounds. Soft, nontender, no guarding, no rebound tenderness, and no masses palpated. EXTREMITIES: Normal strength and range of motion, mild edema noted to bilateral hands, mainly on the left. NEUROLOGICAL: Moves all extremities upon command. Bilateral [id number] amputation. PSYCH: Normal mood, normal affect. SKIN: Warm, dry. Erythema noted to bilateral hands, mainly on left Course - Re-evaluation Re-evalutation: 01/02/20 14:29 Hematology shows a leukocytosis of 12,100 with a slight left shift of 73% neutrophils. Hemoglobin is 12.6, which is the patient's normal. Chemistries show potassium of 6.9. Insulin, D50, and calcium gluconate ordered. Creatinine is 12.29 and BUN is 55 consistent with the patient's end-stage renal disease, on dialysis. 01/02/20 14:29 Venous Doppler study does not show a blood clot. We will start the patient on clindamycin for cellulitis. 01/02/20 16:[address] Ivory, the land surveyor assistant on-call and the patient's land surveyor assistant. We will give the patient Kayexalate. Unfortunately, there are no dialysis beds here in the hospital for the patient. Patient states that he has dialysis first thing in the morning. Plan is to give the patient Kayexalate and reevaluate potassium. 01/02/20 19:30 Patient's potassium is now 4.9. His potassium improved. Patient has dialysis in the morning. Patient will go to dialysis in the morning. Patient will be started on clindamycin, as he does have cellulitis. Patient expressed grat efulness for care. Follow-up precautions were given. Verbal discharge instructions were given to the patient. They verbalized understanding. They are stable for discharge. - Vital Signs Vital signs: Temp Pulse Resp BP Pulse Ox 99.3 F 80 19 163/74 H 97 01/02/20 10:43 01/02/20 10:43 01/02/20 17:08 01/02/20 17:08 01/02/20 17:08 - Laboratory Result Diagrams: 01/02/20 11:40 01/02/20 16:30 Laboratory results interpreted by me: 01/02/20 01/02/20 01/02/20 11:40 11:40 15:06 WBC 12.1 H RBC 4.02 L Hgb 12.6 L Hct 37.2 L RDW 16.8 H Lymph % (Auto) 9.4 L Eos % (Auto) 7.2 H Absolute Neuts (auto) 8.9 H Absolute Eos (auto) 0.9 H Sodium 134.1 L Potassium 6.9 H* Chloride 94 L BUN 55 H Creatinine 12.29 H Est GFR ( Amer) 5 L Est GFR (MDRD) Non-Af 4 L Glucose 161 H POC Glucose 128 H 01/02/20 01/02/20 16:25 16:30 WBC RBC Hgb Hct RDW Lymph % (Auto) Eos % (Auto) Absolute Neuts (auto) Absolute Eos (auto) Sodium 133.8 L Potassium Chloride 93 L BUN 55 H Creatinine 12.66 H Est GFR ( Amer) 5 L Est GFR (MDRD) Non-Af 4 L Glucose 149 H POC Glucose 173 H - EKG Interpretation by Me Additional EKG results interpreted by me: 01/02/20 15:08 Sinus rhythm. Rate 74. AL 184; QRS 90; QT 404; QTc 449. No ST elevations. Discharge - Discharge Clinical Impression: Hyperkalemia Cellulitis Qualifiers: Site of cellulitis: extremity Site of cellulitis of extremity: upper extremity Laterality: unspecified laterality Qualified Code(s): L03.119 - Cellulitis of unspecified part of limb Condition: Stable Disposition: HOME, SELF-CARE Additional Instructions: The rash is likely due to infection of your skin. You need to take the antibiotics as prescribed. Do not stop even if the rash goes away until you have completed all the antibiotics. The area of redness was traced out here in the emergency department with a marking pen. You need to return to emergency department if the redness spreads outside of this area by more than 2 cm in any direction. You should also return if you develop fevers with temperature greater than 101, persistent vomiting, worsening pain, or have any other symptoms that are concerning to you. Testing was also high here in the emergency department. Your potassium was brought down with medications. Please keep your appointment for dialysis tomorrow. Prescriptions: Clindamycin HCl [Cleocin 150 mg Capsule] 300 mg PO Q6 7 Days #56 capsule Referrals: JULIANA SANDRA MD [Primary Care Provider] - Follow up in 3-5 days
[2020-01-02] MEDS ORDERED: ALBUTEROL SULFATE 0.083% NEB 2.5 MG/3 ML AMPUL NEB ONE (14:38)
--- NOTE | 2020-01-02 15:05 | RADIOLOGY REPORT (SQ) ---
EXAM DESCRIPTION: CT HEAD WITHOUT IMAGES COMPLETED DATE/TIME: 01/02/2020 2:47 pm REASON FOR STUDY: AMS COMPARISON: None. TECHNIQUE: Axial images acquired through the brain without intravenous contrast. Images reviewed wi th bone, brain and subdural windows. Additional sagittal and coronal reconstructions were generated. Images stored on PACS. All CT scanners at this facility use dose modulation, iterative reconstruction, and/or weight based d osing when appropriate to reduce radiation dose to as low as reasonably achievable (ALARA). [facility]: Dose Right [facility]: CareDose [facility]: Dose Right [facility]: Teradose 4D [facility]: Dyyno RADIATION DOSE: CT Rad equipment meets quality standard of care and radiation dose reduction techniq ues were employed. CTDIvol: 53.2 mGy. DLP: 1070 mGy-cm. mGy. LIMITATIONS: None. FINDINGS: VENTRICLES: Prominent. CEREBRUM: No masses. No hemorrhage. No midline shift. Areas of low density in the white matter mos t likely due to chronic micro-vascular ischemic change. No evidence for acute infarction. CEREBELLUM: No masses. No hemorrhage. No alteration of density. No evidence for acute infarction. EXTRAAXIAL SPACES: Mild age-related involutional change. No fluid collections. No masses. ORBITS AND GLOBE: No intra- or extraconal masses. Normal contour of globe without masses. CALVARIUM: No fracture. PARANASAL SINUSES: No fluid or mucosal thickening. SOFT TISSUES: No mass or hematoma. OTHER: No other significant finding. IMPRESSION: MILD CHRONIC CHANGES OF ATROPHY AND MICROVASCULAR ISCHEMIA. NO ACUTE PROCESS. EVIDENCE OF ACUTE STROKE: NO. TECHNICAL DOCUMENTATION: JOB ID: [id number] Quality ID # [id number]: Final reports with documentation of one or more dose reduction techniques (e.g., Au tomated exposure control, adjustment of the mA and/or kV according to patient size, use of iterative reconstruction technique) 2010 [employer]- All Rights Reserved Reading location - IP/workstation name: [email or web address]
--- NOTE | 2020-01-02 15:19 | RADIOLOGY REPORT (SQ) ---
EXAM DESCRIPTION: CHEST SINGLE VIEW IMAGES COMPLETED DATE/TIME: 01/02/2020 2:56 pm REASON FOR STUDY: AMS COMPARISON: 05/05/2016 EXAM PARAMETERS: NUMBER OF VIEWS: One view. TECHNIQUE: Single frontal radiographic view of the chest acquired. RADIATION DOSE: NA LIMITATIONS: None. FINDINGS: LUNGS AND PLEURA: Low lung volumes limits the examination. No acute pulmonary consolidat ion. No pneumothorax or pleural effusion. MEDIASTINUM AND HILAR STRUCTURES: No masses. Contour normal. HEART AND VASCULAR STRUCTURES: Cardiomegaly. Normal vasculature. BONES: No acute findings. HARDWARE: None. OTHER: No other significant finding. IMPRESSION: 1. Low lung volumes limits the examination. No acute pulmonary findings. 2. Cardiomegaly, no evidence for failure. TECHNICAL DOCUMENTATION: JOB ID: [id number] 2010 [employer]- All Rights Reserved Reading location - IP/workstation name: [email or web address]
[2020-01-02] MEDS ORDERED: SODIUM POLYSTYRENE SULFONATE 15 GM/60 ML PO ONE (16:30)
[2020-01-02 18:56] LABS: ANION GAP 18 (5-19); BLOOD UREA NITROGEN 55 mg/dL (7-20); CALCIUM 9.1 mg/dL (8.4-10.2); CARBON DIOXIDE 23 mmol/L (22-30); CHLORIDE 93 mmol/L (98-107); GLUCOSE 149 mg/dL (75-110)
[2020-01-02 19:23] LABS: POTASSIUM 4.9 mmol/L (3.6-5.0)
[2020-01-02 20:00] VITALS: BP 166/75
--- NOTE | 2020-01-02 22:56 | EKG REPORT ---
SEVERITY:- ABNORMAL ECG - SINUS RHYTHM LEFT ATRIAL ABNORMALITY BORDERLINE T ABNORMALITIES, DIFFUSE LEADS : Confirmed by: Martha Mckeon 02-Jan-2020 22:56:31
== END 2020-01-02 20:12 | disposition home or self-care (01) ==
LOC: ER 10:29
DX: L03.114 Cellulitis of left upper limb (principal); R41.0 Disorientation, unspecified; E87.5 Hyperkalemia; M79.89 Other specified soft tissue disorders; I50.9 Heart failure, unspecified; I25.10 Atherosclerotic heart disease of native coronary artery without angina pectoris; I11.0 Hypertensive heart disease with heart failure; J44.9 Chronic obstructive pulmonary disease, unspecified
CPT/HCPCS: 93005; 94640; 99285; 96375; 96365; 36415; 87040; 82962; 85025; 80053; 93970; 71045; 70450; 93010; J3490 ×2; A9270 ×3; J1815; J7613

== ENCOUNTER 2020-03-18 19:20 | Emergency (ER) | payer MEDICARE, OTHER ==
[2020-03-18] MEDS ORDERED: TIZANIDINE HCL 4 MG TABLET PO ONE (20:12)
[2020-03-18] MEDS ORDERED: ACETAMINOPHEN 325 MG TABLET PO ONE (20:13)
--- NOTE | 2020-03-18 20:13 | ER Document Report ---
ED Medical Screen (RME) - General Stated Complaint: FALL/SHOULDER PAIN Time Seen by Provider: 03/18/20 20:08 Primary Care Provider: JULIANA SANDRA MD [Primary Care Provider] - Follow up as needed Mode of Arrival: Wheelchair Information source: Patient Notes: HPI; 64-year-old male with bilateral BKA states he fell asleep in his chair when he woke up he had forgotten he did not have his prosthetic legs on went to get up fell forward hitting his head on the ground and stating that he heard a "pop, crack" to the back of his neck. He denies hitting his neck, denies any loss of consciousness. Is complaining of neck pain that radiates into his shoulders. Denies any numbness or tingling. Did not take any medications for pain prior to arrival. Unsure of last tetanus shot. PE: Alert and oriented x3. PERRLA, EOMi half centimeter abrasion noted to the posterior scalp. Bleeding is controlled. Cervical spine is nontender to palpation there is pain with lateral, flexion, extension, of the cervical spine. There is tenderness over the bilateral trapezius muscles. Shoulders are nontender with full range of motion. Thoracic spine nontender to palpation. Gas Compressor Turbine Operator strength is equal and adequate bilaterally. Lungs: Clear to auscultation without rales, rhonchi, wheezes. Heart: Regular rate rhythm without murmurs, rubs, gallops. I have greeted and performed a rapid initial assessment of this patient. A comprehensive ED assessment and evaluation of the patient, analysis of test results and completion of the medical decision making process will be conducted by additional ED providers. I have specifically instructed the patient or family members with the patient to immediately return to any nursing staff should anything change in the patient's condition or with their chief complaint. TRAVEL OUTSIDE OF THE [place] IN LAST 30 DAYS: No - Related Data Allergies/Adverse Reactions: No Known Allergies Allergy (Verified 10/14/17 10:07) Past Medical History - Past Medical History Cardiac Medical History: Reports: Hx Congestive Heart Failure - Diastolic, Hx Coronary Artery Disease, Hx Hypercholesterolemia, Hx Hypertension Denies: Hx Heart Attack Pulmonary Medical History: Reports: Hx Asthma, Hx COPD, Hx Pneumonia - 2014, Hx Sleep Apnea Denies: Hx Bronchitis, Hx Tuberculosis Neurological Medical History: Denies: Hx Cerebrovascular Accident, Hx Seizures Endocrine Medical History: Reports: Hx Diabetes Mellitus Type 2 Renal/ Medical History: Reports: Hx End Stage Renal Disease, Hx Peritoneal Dialysis, Hx Renal Insufficiency. Denies: Hx Hemodialysis GI Medical History: Reports: Hx Gastroesophageal Reflux Disease Musculoskeltal Medical History: Denies Hx Arthritis Skin Medical History: Reports Hx Cellulitis - LOWER EXTREMITY OSTEO LEFT FOOT Psychiatric Medical History: Denies: Hx Depression Past Surgical History: Reports: Hx Cardiac Catheterization - Cardiac catheterization few months ago showed mild CAD., Hx Orthopedic Surgery - Left big toe amputation, knee arthroscopy, Hx Vascular Surgery - Left forearm AV fistula, Other - Bilateral cataract extraction - Immunizations Hx Diphtheria, Pertussis, Tetanus Vaccination: Yes Physical Exam - Vital signs Vitals: Temp Pulse Resp BP Pulse Ox 97.8 F 91 17 197/81 H 98 03/18/20 19:48 03/18/20 19:48 03/18/20 19:48 03/18/20 19:48 03/18/20 19:48 Course - Vital Signs Vital signs: Temp Pulse Resp BP Pulse Ox 97.8 F 91 17 197/81 H 98 03/18/20 19:48 03/18/20 19:48 03/18/20 19:48 03/18/20 19:48 03/18/20 19:48 Doctor's Discharge - Discharge Referrals: JULIANA SANDRA MD [Primary Care Provider] - Follow up as needed
[2020-03-18] MEDS ORDERED: DIPH/PERTUSS(ACELL)/TETANUS VAC/PF 0.5 ML SYR (>=10YO) IM ONE (20:19)
[2020-03-18] MEDS ORDERED: ACETAMINOPHEN 325 MG TABLET ONE (22:39)
[2020-03-19] MEDS ORDERED: DIPH/PERTUSS(ACELL)/TETANUS VAC/PF 0.5 ML SYR (>=10YO) IM ONE (00:15)
[2020-03-19] MEDS ORDERED: TIZANIDINE HCL 4 MG TABLET PO ONE (00:15)
--- NOTE | 2020-03-19 00:26 | RADIOLOGY REPORT (SQ) ---
CT of the head: 03/18/2020 11:21 PM HOME SERVICE CONSULTANT HISTORY: 64-year-old patient with concerns for head injury. COMPARISON: CT the head from 03/18/2020 TECHNIQUE: Multiple axial contiguous images were obtained through the head without intravenous contrast administered. This exam was performed according to our departmental dose-optimization program, which includes automated exposure control, adjustment of the mA and/or KV according to the patient's size and/or use of iterative reconstruction technique. FINDINGS: The ventricles and cerebral sulci demonstrate mild prominence, consistent with cerebral atrophy. There are mild periventricular hypodensities, suggestive of periventricular white matter changes. The cervantes-white matter differentiation is within normal limits. Both globes appear symmetric. The mastoid air cells appear clear. The visualized paranasal sinuses appear clear. The calvarium is intact. No extra-axial fluid collection is seen. No midline shift or mass effect is apparent. There are no findings to suggest acute intracranial hemorrhage. IMPRESSION: 1. No acute intracranial hemorrhage is seen. 2. Mild cerebral atrophy and periventricular white matter changes are seen.
--- NOTE | 2020-03-19 00:30 | RADIOLOGY REPORT (SQ) ---
CT CERVICAL SPINE: 03/18/2020 11:26 PM SEALER SANDER TECHNIQUE: Axial contiguous images were obtained through the cervical spine without intravenous contrast. Sagittal and coronal reconstructions were also reviewed. This exam was performed according to our departmental dose-optimization program, which includes automated exposure control, adjustment of the mA and/or KV according to the patient's size and/or use of iterative reconstruction technique. COMPARISON: None available INDICATION: 64-year old patient with neck pain . FINDINGS: The vertebral bodies appear well aligned. The vertebral body heights appear well maintained. No significant pre-vertebral soft tissue swelling is noted. There is mild facet hypertrophy within the cervical spine likely contributing to at least mild neural foraminal narrowing. Multilevel disc ossify to our seen which likely contribute to thecal sac compression. No definite fracture or subluxation is noted. Minimal multilevel intervertebral disc space narrowing is seen. The visualized brain parenchyma appears unremarkable. The craniocervical junction is unremarkable. IMPRESSION: There are no findings to suggest an acute fracture or subluxation within the cervical spine. Multilevel degenerative changes are seen.
[2020-03-19] MEDS ORDERED: OXYCODONE-ACETAMINOPHEN 5-325 MG TABLET PO ONE (04:54)
--- NOTE | 2020-03-19 05:04 | ER Document Report ---
ED Fall - General Chief Complaint: Fall Injury Stated Complaint: FALL/SHOULDER PAIN Time Seen by Provider: 03/18/20 20:08 Primary Care Provider: [facility] [Provider Group] - Follow up as needed JULIANA SANDRA MD [Primary Care Provider] - Follow up as needed Mode of Arrival: Medic Information source: Patient Notes: 64-year-old male presented to ED for complaint of pain to his head neck upper back and right shoulder. He states he fell asleep in his chair and when he woke up he went to get up but did not have his prosthetic legs on so he fell forward hitting his head on the ground and on a table. He states he thought he heard a pop or crack in the back of his neck. He states he did not lose consciousness. He states he has had pain in his upper back and right shoulder since then. His sister is at bedside. She states when he fell he called a friend who called her and she came to the house and then they called the EMS. She said he had a large laceration to the top of his head and there is a very superficial abrasion to the top of his head. He states he has burning pain across the upper back and has not been able to move the right shoulder due to the pain. When he was seen in triage he had full range of motion to both shoulders. Triage ordered a CT of the head and neck with no acute changes in either. Lungs are clear to auscultation heart regular rate and rhythm. He does have a bilateral BKA. Constitutional: Negative for fever. HENT: Negative for sore throat. Eyes: Negative for visual changes. Cardiovascular: Negative for chest pain. Respiratory: Negative for shortness of breath. Gastrointestinal: Negative for abdominal pain, vomiting or diarrhea. Genitourinary: Negative for dysuria. Musculoskeletal: Complains of pain across the upper back neck and right shoulder. States it is painful to move the right shoulder.. Skin: Abrasion to the right top of his head seem very superficial Neurological: Complains of head and neck pain after falling earlier today 10 point ROS negative except as marked above and in HPI. VITAL SIGNS: Within normal limits. GENERAL: No acute distress, non-toxic appearance. HEAD: States he fell landing on his head when he tried to get up when he did not have his static legs on EYES: PERRLA, EOMI, conjunctiva normal, no discharge. EARS: Hearing grossly intact. NOSE: Normal. THROAT: Oropharynx is normal. NECK: Complains of bilateral neck pain. Bilateral neck muscles tender to palpation. CHEST: Clear breath sounds bilaterally. No wheezes, rales, or rhonchi. CARDIAC: Regular rate and rhythm. S1 and S2, without murmurs, gallops, or rubs. VASCULAR: No Edema. Peripheral pulses normal and equal in all extremities. ABDOMEN: Normal and soft with no tenderness, no masses or pulsatile masses. GASTROINTESTINAL: Bowel sounds normal GENITOURINARY: Normal, No tenderness LYMPATHTIC: No lymphadenopathy noted. MUSCULOSKELETAL: Upper backpackers manager to palpation bilaterally worse on the right. Refuses to complete range of motion to the right shoulder due to discomfort. He is a bilateral BKA. NEUROLOGICAL: Alert and oriented x 3. No focal sensory or strength deficits. Speech normal. Follows commands appropriately. PSYCHIATRIC: Normal Affect, judgement and mood. SKIN: Small superficial abrasion to the right scalp parietal area TRAVEL OUTSIDE OF THE [place] IN LAST 30 DAYS: No - HPI Occurred: This evening - Just before coming to the emergency room Where: Home, Indoors Context: Fell from sitting Location of injury/pain: Back, Head, Neck, Shoulder Quality of pain: Achy, Burning, Sharp Severity: Moderate Pain Level: 4 - Related data Allergies/Adverse Reactions: No Known Allergies Allergy (Verified 10/14/17 10:07) Past Medical History - General Information source: Patient - Social History Smoking Status: Unknown if Ever Smoked Frequency of alcohol use: None Drug Abuse: None Lives with: Alone Family History: Reviewed & Not Pertinent, CAD, Hyperlipidemia, Hypertension Patient has suicidal ideation: No Patient has homicidal ideation: No - Past Medical History Cardiac Medical History: Reports: Hx Congestive Heart Failure - Diastolic, Hx Coronary Artery Disease, Hx Hypercholesterolemia, Hx Hypertension Pulmonary Medical History: Reports: Hx Asthma, Hx COPD, Hx Pneumonia - 2014, Hx Sleep Apnea EENT Medical History: Reports: None Neurological Medical History: Reports: None Endocrine Medical History: Reports: Hx Diabetes Mellitus Type 2 Renal/ Medical History: Reports: Hx End Stage Renal Disease, Hx Hemodialysis, Hx Peritoneal Dialysis, Hx Renal Insufficiency Malignancy Medical History: Reports None GI Medical History: Reports: Hx Gastroesophageal Reflux Disease Musculoskeletal Medical History: Reports Hx Musculoskeletal Deformity, Reports Hx Musculoskeletal Trauma Skin Medical History: Reports Hx Cellulitis - LOWER EXTREMITY OSTEO LEFT FOOT Psychiatric Medical History: Reports: None Traumatic Medical History: Reports: None Infectious Medical History: Reports: None Past Surgical History: Reports: Hx Cardiac Catheterization - Cardiac catheterization few months ago showed mild CAD., Hx Orthopedic Surgery - Bilater BKA, knee arthroscopy, Hx Vascular Surgery - Left forearm AV fistula, Other - Bilateral cataract extraction - Immunizations Hx Diphtheria, Pertussis, Tetanus Vaccination: Yes Hx Pneumococcal Vaccination: 01/19/12 Physical Exam - Vital signs Vitals: Temp Pulse Resp BP Pulse Ox 97.8 F 91 17 197/81 H 98 03/18/20 19:48 03/18/20 19:48 03/18/20 19:48 03/18/20 19:48 03/18/20 19:48 Course - Re-evaluation Re-evalutation: 03/19/20 08:[address] CT discussed with patient written report of CTs and x-rays given to sharla aleman for follow-up with primary care doctor. Patient was treated with a Percocet in the emergency room with he stated helped his pain a lot and discharged home with a Kingston dispense pack. He was instructed to follow-up with his primary care in the morning as well as an system configuration specialist. Patient verbalized understanding and he was discharged home. - Vital Signs Vital signs: Temp Pulse Resp BP Pulse Ox 97.8 F 74 16 192/86 H 98 03/19/20 06:46 03/19/20 06:46 03/19/20 03:31 03/19/20 06:46 03/19/20 06:46 - Laboratory Results Critical Laboratory Results Reviewed: No Critical Results - Radiology Results Critical Radiology Results Reviewed: No Critical Results Discharge - Discharge Clinical Impression: Fall Qualifiers: Encounter type: initial encounter Qualified Code(s): W19.XXXA - Unspecified fall, initial encounter Right shoulder pain Qualifiers: Chronicity: acute Qualified Code(s): M25.511 - Pain in right shoulder Head injury Qualifiers: Encounter type: initial encounter Qualified Code(s): S09.90XA - Unspecified injury of head, initial encounter Condition: Stable Disposition: HOME, SELF-CARE Additional Instructions: HEAD INJURY PRECAUTIONS: At this point, there is no evidence that your head injury is serious. Observation is necessary, however. Take only clear liquids for the first few hours, unless told otherwise by the doctor. If no pain medication was prescribed, you may take acetaminophen according to the directions on the bottle. Do not take any medication that may alter your level of alertness (unless you've discussed it with the doctor first). Limit activity for the first 24 hours. Bed rest is best. During the first 24 hours, check to see approximately every two to three hours that the patient is easily arousable, responds normally, and can perform common tasks such as walking without difficulty. Contact your doctor or go to the hospital if any of the following things occur: Persistent vomiting, difficulty in arousing the patient, worsening or continued headache, or failure to improve as expected. Head injuries can cause symptoms that persist for a few days or even a few weeks. NECK INJURY (CERVICAL STRAIN): You have a neck strain. This is an injury to the muscles and ligaments in the neck. There is no evidence of a fracture of the neck bones. Also, no injury to the spinal cord or nerve roots was detected. Usually, stiffness and pain INCREASE for the first 24-48 hours after the injury. The pain will gradually resolve and the neck will become more mobile. Most patients are back at work or school within a few days. Typically, complete healing takes about two or three weeks. The usual initial treatment is rest and cold packs. A neck collar may be placed to keep the muscles of the neck at rest. Antiinflammatory and muscle relaxing medication are often used to reduce the spasm and irritation. You should call the doctor, or go to the hospital, if you develop numbness or weakness in any extremity, problems with your bladder or bowel, or pain radiating down the arms. MUSCLE STRAIN: You have strained a muscle -- torn the fibers within the muscle. This often occurs with strenuous exertion, or during an injury that suddenly stretches the muscle. The seriousness of a strain varies. Some strains heal within days, others cause problems for months. X-rays cannot show a muscle strain. X-rays are taken only if symptoms suggest that a fracture could be present. The usual treatment of a muscle strain is rest and ice packs. Sometimes, a sling, splint, or crutches may be necessary to rest the muscle. The muscle can be used again once pain subsides. Severe strains require a special exercise and stretching program to prevent permanent stiffness and disability. Your doctor will advise you if this will be necessary. Call the doctor immediately if pain or swelling becomes severe, or if numbness or discoloration develop. CONTUSION: Your injury has resulted in a contusion -- a crushing of the deep tissues. No injury to important structures was detected during the physician's exam. Contusions vary in the amount of pain they cause, and in the length of time required for healing. Typically, the area will become bruised, and will remain painful to touch for two or three weeks. However, most patients are back to working and playing within a few days. After the initial period of rest and cold-packs, your symptoms (together with the doctor's recommendations) will determine how rapidly you can get back to full activity. Usually this means "do what feels okay, but don't do things that hurt." If re-examination was recommended, it's important to follow up as instructed. Call the doctor or return any time if pain increases, if swelling becomes severe, if you develop numbness or weakness in an injured extremity, or if any other alarming symptoms occur. ABRASIONS: An abrasion is a scraping injury of the skin. Some scarring may result. The seriousness of an abrasion is not always obvious at first. Hidden tissue damage may be present and infection may occur despite proper care. Complete healing may take from ten days to as long as a month. The healing time depends on the depth of the abrasion, and on the amount of crushing of underlying tissues from the injury. Keep the wound and dressing clean. Do not shower or bathe the area until okayed by the doctor. If the dressing gets wet, remove it and blot the wound dry, then reapply a clean dressing. Dressings should be changed every day. Sunscreen should be used for six months after the skin is healed. If any signs of infection occur (swelling, redness, increasing tenderness, red streaks, profuse purulent drainage from the abrasion, tender lumps in the armpit or groin above the abrasion, or fever), see the doctor immediately. USE OF TYLENOL (ACETAMINOPHEN): Acetaminophen may be taken for pain relief or fever control. It's much safer than aspirin, offering a wider range of "safe" dosages. It is safe during . Some brand names are Tylenol, Panadol, Datril, Anacin 3, Tempra, and Liquiprin. Acetaminophen can be repeated every four hours. The following are maximum recommended dosages: WEIGHT Dose Drops Elixir Chewable(80mg) (LBS.) drprs=droppers tsp=teaspoon 6 40 mg 0.4 ml (1/2) 6-11 80 mg 0.8 ml (full) tsp 1 tab 12-16 120 mg 1 1/2 drprs 3/4 tsp 1 1/2 tabs 17-23 160 mg 2 drprs 1 tsp 2 tabs 24-30 240 mg 3 drprs 1 1/2 tsp 3 tabs 30-35 320 mg 2 tsp 4 tabs 36-41 360 mg 2 1/4 tsp 4 1/2 tabs 42-47 400 mg 2 1/2 tsp 5 tabs 48-53 480 mg 3 tsp 6 tabs 54-59 520 mg 3 1/4 tsp 6 1/2 tabs 60-64 560 mg 3 1/2 tsp 7 tabs 65-70 600 mg 3 3/4 tsp 7 1/2 tabs 71-76 640 mg 4 tsp 8 tabs 77-82 720 mg 4 1/2 tsp 9 tabs 83-88 800 mg 5 tsp 10 tabs >89 pounds or adults 650 mg to 900 mg Acetaminophen can be repeated every four hours. Maximum dose not to exceed 4000 mg a day. These maximum recommended dosages are slightly higher than the dosages written on the product container, but these dosages are very safe and below the toxic dosage for acetaminophen. ICE PACKS: Apply ice packs frequently against the painful area. Many different schedules are recommended, such as "20 minutes on, 20 minutes off" or "one hour ice, two hours rest." If you need to work, you may need to go longer between ice treatments. You should plan to have the area ice packed AT LEAST one fourth of the time. The ice should be applied over the wrap, tape, or splint, or over a layer of cloth -- not directly against the skin. Some ice bags have a built-in cloth and can be put directly on the skin. WARM PACKS: After approximately two days, apply gentle heat (such as a heating pad or hot water bottle) for about 20 to 30 minutes about every two hours -- at least four times daily. Warmth and elevation will help you make a more rapid recovery, and will ease the pain considerably. Do not use HOT heat, and never apply heat for longer than 30 minutes. The continuous heat can invisibly damage skin and muscles -- even when no burn is seen on the surface. Damaged muscles can make you MORE sore. ORAL NARCOTIC MEDICATION: You have been given a [place] dispense pack for pain control. This medication is a narcotic. It's best taken with food, as nausea can result if taken on an empty stomach. Don't operate machinery or drive within six hours of taking this medication. Do not combine this medicine with alcohol, or with any medication which can cause sedation (such as cold tablets or sleeping pills) unless you get permission from the physician. Narcotics tend to cause constipation. If possible, drink plenty of fluids and eat a diet high in fiber and fruits. FOLLOW-UP CARE: If you have been referred to a physician for follow-up care, call the physicians office for an appointment as you were instructed or within the next two days. If you experience worsening or a significant change in your symptoms, notify the physician immediately or return to the Emergency Department at any time for re-evaluation. Forms: Elevated Blood Pressure Referrals: JULIANA SANDRA MD [Primary Care Provider] - Follow up as needed [facility] [Provider Group] - Follow up as needed
--- NOTE | 2020-03-19 06:03 | RADIOLOGY REPORT (SQ) ---
CLINICAL HISTORY: Upper back and right shoulder pain COMPARISON: 01/02/2020. TECHNIQUE: XR CHEST 2 VIEWS 03/19/2020 4:53 AM MEDIA PRODUCTION OPERATOR FINDINGS: Cardiac silhouette is normal in size. Lungs are clear without consolidation, atelectasis, mass or edema. There is no pleural effusion. There is no pneumothorax. There are no acute osseous findings. IMPRESSION: Clear lungs.
--- NOTE | 2020-03-19 06:04 | RADIOLOGY REPORT (SQ) ---
CLINICAL HISTORY: Upper back and right shoulder pain COMPARISON: None. TECHNIQUE: XR SHOULDER 2 OR MORE VIEWS 03/19/2020 4:53 AM FISHER WEIR FINDINGS: There is no fracture. There are moderate degenerative changes of the acromioclavicular and glenohumeral joints. Soft tissues are unremarkable. IMPRESSION: Degenerative changes of the right shoulder.
[2020-03-19] MEDS ORDERED: HYDROCODONE/ACETAMINOPHEN 5-325 MG (6 TAB/ER DISP) PO PRN (06:37)
[2020-03-19 06:46] VITALS: BP 192/86
--- OUTSIDE RECORDS SUMMARY | 2020-03-21 09:17 | XMS REPORT ---
:1955 Author Organization [facility] [place] [facility] [place] [address] [place] [id number] Care Team Providers Name Role Phone Winter CAMARENA Primary Care Physician Unavailable Allergies, Adverse Reactions, Alerts This patient has no known allergies or adverse reactions. Medications This patient has no known medications. Problems This patient has no known problems. Procedures This patient has no known procedures. Results This patient has no known results. Social History This patient has no known social history. Vital Signs This patient has no known vital signs.
== END 2020-03-19 07:14 | disposition home or self-care (01) ==
LOC: ER 19:20
DX: S00.01XA Abrasion of scalp, initial encounter (principal); R51.9 Headache, unspecified; M54.2 Cervicalgia; M54.9 Dorsalgia, unspecified; M25.511 Pain in right shoulder; W05.0XXA Fall from non-moving wheelchair, initial encounter; W22.03XA Walked into furniture, initial encounter; Y93.89 Activity, other specified; Y92.009 Unspecified place in unspecified non-institutional (private) residence as the place of occurrence of the external cause; M47.819 Spondylosis without myelopathy or radiculopathy, site unspecified; I25.10 Atherosclerotic heart disease of native coronary artery without angina pectoris; I10 Essential (primary) hypertension; E11.9 Type 2 diabetes mellitus without complications; J44.9 Chronic obstructive pulmonary disease, unspecified; Z89.512 Acquired absence of left leg below knee; Z89.511 Acquired absence of right leg below knee
CPT/HCPCS: 99284; 90471; 71046; 73030; 70450; 72125; 90715; A9270 ×4; J3490